=== PATIENT | female | born 1950 | race Caucasian/White ===

== ENCOUNTER 2018-01-11 10:19 | Emergency (ER) | payer MEDICARE, OTHER, SELFPAY ==
[2018-01-11 10:20] VITALS: BP 190/90; PULSE 67; RESP 18; TEMP 36.5; O2SAT 100
--- NOTE | 2018-01-11 10:32 | ED_ITS ---
HPI - Extremity Injury (Upper) General Chief Complaint: Extremity Injury, Upper Stated Complaint: FELL OFF PORCH AND POSSIBLY BROKE ELBOW Time Seen by Provider: 01/11/18 10:30 Source: patient Mode of arrival: ambulatory Limitations: no limitations History of Present Illness HPI narrative: Patient is a 67-year-old female who presents with left elbow pain. She was pulled by the dog when she fell down. She has extreme all left elbow pain no shoulder pain no numbness or tingling. No other injuries no loss of consciousness. complaint: injury to: left and elbow Related Data Home Medications Medication Instructions Recorded Confirmed acyclovir 400 mg PO BID #0 06/30/17 cholecalciferol (vitamin D3) 2,000 unit PO QDAY #0 06/30/17 [Vitamin D3] citalopram [Celexa] 5 mg PO QDAY #0 06/30/17 omega 6-fuh-gro-fish oil [Fish Oil] 1,000 mg PO BID #0 06/30/17 simvastatin 20 mg PO HS #0 06/30/17 Previous Rx's Medication Instructions Recorded oxycodone-acetaminophen [Percocet] 1 tab PO Q4-6H PRN #14 tab 01/11/18 Allergies Allergy/AdvReac Type Severity Reaction Status Date / Time No Known Allergies Allergy Verified 01/11/18 10:38 Review of Systems Review of Systems All systems reviewed & are unremarkable except as noted in HPI and below Constitutional Denies chills, Denies fever(s), Denies lethargy and Denies weakness Cardiovascular Denies chest pain, Denies irregular heart rhythm, Denies lightheadedness, Denies palpitations, Denies dyspnea, Denies dyspnea on exertion and Denies orthopnea Respiratory Denies cough, Denies dyspnea, Denies dyspnea on exertion and Denies wheezing Musculoskeletal Reports system reviewed and no additional complaints, except as docu Integumentary/Breasts Denies pruritus, Denies erythema, Denies rash and Denies wounds Neurologic Denies weakness Endocrine Denies palpitations Allergic/Immunologic Denies wheezing [facility] Medical History Hyperlipidemia (Acute) Exam Initial Vital Signs Initial Vital Signs: Vital Signs Temperature 97.7 F 01/11/18 10:20 Pulse Rate 67 01/11/18 10:20 Respiratory Rate 18 01/11/18 10:20 Blood Pressure 190/90 H 01/11/18 10:20 Pulse Oximetry 100 08/27/18 10:20 GENERAL: Well-appearing, well-nourished and in no acute distress. CARDIOVASCULAR: peripheral pulses in tact, cap refill <2 sec RESPIRATORY: No respiratory distress, speaks in full sentences without difficulty EXTREMITIES: Normal range of motion, no clubbing or edema. Neurovascularly intact. Wrist shoulder and clavicle all within normal limits -LEFT ELBOW: Swelling of noted, no gross bony deformity, neurovascularly intact. NEUROLOGICAL: Cranial nerves II through XII grossly intact. Normal gait and speech. SKIN: Warm, dry, no petechiae, no rashes or lesions. Procedures Orthopedic Splinting/Casting Injury #1: Side: left Upper Extremity Injury Location: elbow Upper Extremity Immobilizer: posterior splint Additional Comments: Splint applied by me, with assistance of nurse, neurovascular be intact post splint Course Orders Ordered: Discontinued Medications Hydromorphone HCl (Dilaudid) 0.5 mg IV NOW ONE Stop: 01/11/18 11:44 Last Admin: 01/11/18 11:45 Dose: 0.5 mg Lorazepam (Ativan) 0.5 mg IV NOW ONE Stop: 01/11/18 11:07 Last Admin: 01/11/18 11:24 Dose: 0.5 mg Morphine Sulfate (Morphine) 2 mg IV NOW ONE Stop: 01/11/18 10:36 Last Admin: 01/11/18 10:42 Dose: 2 mg Reevaluation(s) Reevaluation #1: Patient developed some numbness and tingling of her left pinky. She said it lasted for about 10 min while she was in the emergency department and has since resolved since she has been splinted. Dr. Giles is also aware of the Vital Signs - 8 hr 01/11/18 10:20 01/11/18 10:46 01/11/18 11:28 Temperature 97.7 F Pulse Rate 67 80 70 Pulse Rate [Left Radial] 74 Respiratory Rate 18 23 18 Blood Pressure 190/90 H Blood Pressure [Right Arm] 184/101 H 201/91 H Pulse Oximetry 100 100 100 01/11/18 12:21 01/11/18 12:50 01/11/18 13:34 Temperature 98.4 F Pulse Rate 70 75 60 Pulse Rate [Left Radial] Respiratory Rate 18 18 18 Blood Pressure Blood Pressure [Right Arm] 177/93 H 168/86 H 166/92 H Pulse Oximetry 94 97 98 MDM - Extremity Injury (Upper) Imaging Data XR Left Elbow: Radiologist's impression: PROCEDURE: XR ELBOW LT MIN 3V INDICATIONS: left elbow pain, fall, deformity TECHNIQUE: 3 views of the elbow were acquired. COMPARISON: None. FINDINGS: Bones: Poorly visualized fracture of the distal left humerus noted possibly involving the capitellum. Fracture fragment is displaced anteriorly and proximally. Soft tissues: No suspicious soft tissue calcifications. IMPRESSION: Poorly visualized and characterized distal left humerus fracture. Dictated by: Jennifer Mendenhall MD, PhD on 01/11/2018 at 11:13 CT LUE: Radiologist's impression: [address] [address] [address] Scan Report Signed Patient: Jerrica Robles I MR#: [id number] : 1950 Acct:[id number] Age/Sex: 67 / F Date of Service: 01/11/18 Loc: ED Accession Number: [id number] Procedure: CT UE LT wo con Ordering Provider: Ayse Butterfield D.O. PROCEDURE: CT UE LT WO CON INDICATIONS: humerus fracture TECHNIQUE: Noncontrast 1-1.5 mm axial sections were acquired through the elbow joint, with coronal and sagittal reformats. COMPARISON: [facility], CR, XR ELBOW LT MIN 3V, 01/11/2018, 10:53. FINDINGS: Image quality: Excellent. Bones: The humeral diaphysis visualized appears normal. At the elbow joint there is a lateral humeral epicondyles intra-articular fracture malalignment with comminution, displacing portions of the articular surface laterally to a mild degree. There also is a fracture dislocation involving the medial humeral condyle displaced cephalad to the coronoid process of the olecranon. There is impingement by the radial head against the fracture plane along its cephalad border, maintaining malalignment. Soft tissues: No hematoma found. IMPRESSION: Distal humeral comminuted intra-articular fractures involving the medial and lateral condyles, with condylar dislocation from anatomic alignment cephalad and also laterally to a mild degree. No humeral diaphyseal fracture found. A definite radial head fracture is not seen. Dictated by: Luiz Scott M.D. on 01/11/2018 at 13:10 [facility] Narrative Medical decision making narrative: I have spoken with Dr. Giles, on-call orthopedics. She recommended CT of the upper arm. She has reviewed the CT herself. She will see patient in clinic and likely go to the OR later this week. Discharge Plan Departure Patient Disposition: Home Clinical Impression: Fracture of distal end of humerus Discharge Date/Time: 01/11/18 14:16 Interventions: ED Discharge Assessment Last Done: 01/11/18 14:14 Instructions: DI for Elbow Fracture Activity Restrictions/Additional Instructions: *You have been diagnosed with distal humerus fracture *What to do: Keep splint on at all times, will get surgery on Thursday please call Orthopedics office to discuss specific *Continue to take medications as directed -Percocet 1 tablet every 4 hr or 2 tablets every 6 hr *Follow up with your primary care provider in 2-3 days *Return to ER if you should have numbness, tingling, increased pain or any new, worsening or concerning symptoms Prescriptions: New oxycodone-acetaminophen [Percocet] 5-325 mg tablet 1 tab PO Q4-6H PRN (Reason: pain) Qty: 14 RF: 0 No Action citalopram [Celexa] 10 MG tablet 5 mg PO QDAY Qty: 0 RF: 0 acyclovir 400 MG tablet 400 mg PO BID Qty: 0 RF: 0 simvastatin 20 MG tablet 20 mg PO HS Qty: 0 RF: 0 cholecalciferol (vitamin D3) [Vitamin D3] 2,000 UNIT capsule 2,000 unit PO QDAY Qty: 0 RF: 0 omega 8-imc-zzs-fish oil [Fish Oil] 1,000 MG capsule 1,000 mg PO BID Qty: 0 RF: 0 Referrals: Maurice Reyes MD [Primary Care Provider] - Mireya Giles MD [Physician] -
[2018-01-11] MEDS: MORPHINE 2 MG/ML INJ IV (10:42)
[2018-01-11 10:46] VITALS: BP 184/101; PULSE 74; PULSE 80; RESP 23; O2SAT 100
[2018-01-11] MEDS: LORazepam 2 MG/ML SYRINGE 0.5 MG IV (11:24)
[2018-01-11 11:28] VITALS: BP 201/91; PULSE 70; RESP 18; O2SAT 100
[2018-01-11] MEDS: HYDROMORPHONE 1 MG INJ 0.5 MG IV (11:45)
--- NOTE | 2018-01-11 11:55 | PC.NURSE ---
Assisted Dr. Butterfield with application of splint to left arm. CMS intact. Pt tolerated procedure well. States pain is at level 3/10
[2018-01-11 12:21] VITALS: BP 177/93; PULSE 70; RESP 18; O2SAT 94
--- NOTE | 2018-01-11 12:33 | DI.CT.S_ITS ---
PROCEDURE: CT UE LT WO CON INDICATIONS: humerus fracture TECHNIQUE: Noncontrast 1-1.5 mm axial sections were acquired through the elbow joint, with coronal and sagittal reformats. COMPARISON: [facility], CR, XR ELBOW LT MIN 3V, 01/11/2018, 10:53. FINDINGS: Image quality: Excellent. Bones: The humeral diaphysis visualized appears normal. At the elbow joint there is a lateral humeral epicondyles intra-articular fracture malalignment with comminution, displacing portions of the articular surface laterally to a mild degree. There also is a fracture dislocation involving the medial humeral condyle displaced cephalad to the coronoid process of the olecranon. There is impingement by the radial head against the fracture plane along its cephalad border, maintaining malalignment. Soft tissues: No hematoma found. IMPRESSION: Distal humeral comminuted intra-articular fractures involving the medial and lateral condyles, with condylar dislocation from anatomic alignment cephalad and also laterally to a mild degree. No humeral diaphyseal fracture found. A definite radial head fracture is not seen. Dictated by: Luiz Scott M.D. on 01/11/2018 at 13:10 Approved by: Luiz Scott M.D. on 01/11/2018 at 13:14
[2018-01-11 12:50] VITALS: BP 168/86; PULSE 75; RESP 18; TEMP 36.9; O2SAT 97
[2018-01-11 13:34] VITALS: BP 166/92; PULSE 60; RESP 18; O2SAT 98
== END 2018-01-11 14:16 | disposition home or self-care (01) ==
PROVIDERS: Emergency Provider Emergency Medicine; PCP Family Medicine
DX: S42.402A Unspecified fracture of lower end of left humerus, initial encounter for closed fracture (principal); W18.30XA Fall on same level, unspecified, initial encounter; Y93.K1 Activity, walking an animal
CPT/HCPCS: 29125; 36591; 73080; 73200; 96374; 96375; 99283; 99284; J1170; J2060; J2270

== ENCOUNTER → 2018-04-23 14:15 | Outpatient (CLI) | payer MEDICARE, OTHER, SELFPAY ==
--- NOTE | 2018-04-23 | DI.RAD.S_ITS ---
PROCEDURE: XR SHOULDER LT MIN 2V INDICATIONS: LEFT SHOULDER PAIN TECHNIQUE: 3 views of the shoulder were acquired. COMPARISON: None. FINDINGS: Bones: No fractures or dislocations. No suspicious bony lesions. Visualized ribs appear intact. Soft tissues: No suspicious soft tissue calcifications. IMPRESSION: No acute radiographic findings. If there is continued pain, followup exam or additional imaging such as MRI or CT could be performed for further assessment. Dictated by: Shama Solis M.D. on 04/23/2018 at 14:32 Approved by: Shama Solis M.D. on 04/23/2018 at 14:33
== END ==
PROVIDERS: PCP Family Medicine; Visit Provider Family Medicine
DX: M25.512 Pain in left shoulder (principal)
CPT/HCPCS: 73030

== ENCOUNTER → 2018-09-15 15:18 | Outpatient (CLI) | payer MEDICARE, OTHER, SELFPAY ==
--- NOTE | 2018-09-15 | DI.MG.S_ITS ---
BILATERAL DIGITAL SCREENING MAMMOGRAM 3D/2D WITH CAD: 09/15/2018 CLINICAL: Routine screening. Comparison is made to exams dated: 08/07/2016 mammogram, 10/26/2014 mammogram, and 02/27/2010 mammogram - [facility]. The tissue of both breasts is extremely dense, which lowers the sensitivity of mammography. Current study was also evaluated with a Computer Aided Detection (CAD) system. No significant masses, calcifications, or other findings are seen in either breast. There has been no significant interval change. IMPRESSION: NEGATIVE There is no mammographic evidence of malignancy. A 1 year screening mammogram is recommended. This exam was interpreted at Station ID: [id number]. NOTE: For mammograms, a report in lay terms will be sent to the patient. Approximately 15% of breast malignancies will not be visualized mammographically. In the management of a palpable breast mass, a negative mammogram must not discourage biopsy of a clinically suspicious lesion. Electronically Signed By: Marizol newsome/jame:09/15/2018 21:08:42 letter sent: Normal Exam ACR BI-RADS Category 1: Negative [id number]
[2018-09-15 15:48] LABS: Bacteria Urine None Seen; RBC Urine None Seen (0-5/HPF); WBC Urine None Seen (0-5/HPF)
[2018-09-15 16:08] LABS: Appearance Urine UA SL CLOUDY; Bilirubin Urine UA NEGATIVE (NEGATIVE); Color Urine UA YELLOW; Glucose Urine UA NEGATIVE (Negative); Ketones Urine UA NEGATIVE (NEGATIVE); Leukocyte Esterase Urine UA NEGATIVE (NEGATIVE); Nitrite Urine UA NEGATIVE (Negative); Occult Blood Urine UA NEGATIVE (Negative); Protein Urine UA NEGATIVE (Negative); Urobilinogen Urine UA 0.2 E.U./dL (0.2); pH Urine UA 7.5 (4.5-8.0)
[2018-09-15 16:11] LABS: Add Manual Diff / Slide Review NO; Basophils Absolute Auto 0 /uL (0-100); Basophils Percent Auto 0.7 % (0-2); Eosinophils Absolute Auto 100 /uL (0-450); Eosinophils Percent Auto 2.6 % (2-4); Hematocrit 45.7 % (36-46); Hemoglobin 15.1 g/dL (12.0-16.0); Lymphocytes Absolute Auto 2000 /uL (1100-4500); Lymphocytes Percent Auto 35.5 % (25-40); Mean Corpuscular HGB Conc 33.1 % (30-36); Mean Corpuscular Hemoglobin 31.4 PG (26-34); Mean Corpuscular Volume 94.7 fL (80-100); Monocytes Absolute Auto 400 /uL (0-900); Monocytes Percent Auto 6.4 % (3-14); Neutrophils Absolute Auto 3100 /uL (1500-7000); Neutrophils Percent Auto 54.8 % (50-75); Platelet Count 288 X10^3/uL (150-400); Red Blood Cell Count 4.83 X10^6/uL (4.0-5.2); Red Cell Distribution Width 12.8 % (11.6-14.8); White Blood Cell Count 5.7 X10^3/uL (4.5-11.0)
[2018-09-15 16:22] LABS: Amorphous Sediment Urine 2+; Culture Indicated Urine Cult Not Indicated; Squamous Epithelial Cell Urine 0-1 /HPF (0-5/HPF)
[2018-09-15 16:27] LABS: Hemoglobin A1C% w Est Avg Glu 5.1 % (4.0-6.0)
[2018-09-15 18:19] LABS: BUN Creatinine Ratio 25.6 (6-22); Blood Urea Nitrogen 23 mg/dL (7-17); Calcium 10.9 mg/dL (8.4-10.2); Carbon Dioxide 28 mmol/L (22-32); Chloride 101 mmol/L (98-107); Estimated Glomerular Filt Rate > 60.0 mL/min (>60); Glucose 92 mg/dL (80-110); HEMOLYSIS < 15 (0-50); Potassium 4.5 mmol/L (3.4-5.1); Sodium 139 mmol/L (137-145)
== END ==
PROVIDERS: Family Provider Orthopaedic Surgery; PCP Family Medicine; Visit Provider Family Medicine
DX: Z01.818 Encounter for other preprocedural examination (principal); Z01.812 Encounter for preprocedural laboratory examination; Z12.31 Encounter for screening mammogram for malignant neoplasm of breast; N39.9 Disorder of urinary system, unspecified; Z13.1 Encounter for screening for diabetes mellitus; R73.9 Hyperglycemia, unspecified
CPT/HCPCS: 36415; 77063; 77067; 80048; 81001; 83036; 85025; 93005

== ENCOUNTER 2018-11-11 05:57 | Inpatient (IN) | payer MEDICARE, OTHER, SELFPAY ==
[2018-11-02 09:37] VITALS: BMI 24.8
[2018-11-11] VITALS (14 sets, daily range): BP systolic 104–156; BP diastolic 49–90; PULSE 56–96; RESP 9–99; TEMP 36–36.5; O2SAT 9–100; BMI 24.5
--- NOTE | 2018-11-11 | DI.RAD.S_ITS ---
PROCEDURE: XR HIP W PEL IF DONE RT 4V INDICATIONS: INNER OP ANTERIOR RT HIP TECHNIQUE: AP pelvis and lateral view of the right hip acquired. COMPARISON: None. FINDINGS: Bones: Patient is status post right hip arthroplasty, with hardware components in expected positions. The hip joint appears congruent. The visualized bony structures appear intact. Soft tissues: Overlying postoperative changes are noted. No suspicious soft tissue densities. IMPRESSION: Right hip prosthesis in anatomic alignment. Dictated by: Margie Meyer M.D. on 11/11/2018 at 12:19 Approved by: Margie Meyer M.D. on 11/11/2018 at 12:19
--- NOTE | 2018-11-11 06:00 | DI.RAD.S_ITS ---
PROCEDURE: XR HIP W PEL IF DONE RT 2V INDICATIONS: right IVANA, anterior TECHNIQUE: AP pelvis and lateral view of the right hip acquired. COMPARISON: [facility], CR, XR PELVIS WITH LATERAL HIP RIGHT, 02/24/2018, 13:44. [facility] [place], CR, XR PELVIS WITH LATERAL HIP RIGHT, 09/10/2018, 11:49. FINDINGS: Bones: Patient is status post right hip arthroplasty, with hardware components in expected positions. The hip joint appears congruent. The visualized bony structures appear intact. Soft tissues: Overlying postoperative changes are noted. No suspicious soft tissue densities. IMPRESSION: Right hip arthroplasty with prosthesis in anatomic alignment. Dictated by: Margie Meyer M.D. on 11/11/2018 at 16:08 Approved by: Margie Meyer M.D. on 11/11/2018 at 16:09
[2018-11-11] MEDS: VANCOMYCIN 1,000 MG/200 ML PIGGYBACK 200 MG IV (07:03)
[2018-11-11] MEDS: ACETAMINOPHEN 325 MG TABLET 975 MG PO ×3 (07:03→20:38)
[2018-11-11] MEDS: PREGABALIN 75 MG CAPSULE PO (07:04)
[2018-11-11] MEDS: LACTATED RINGERS 1,000 ML 42 ML IV ×2 (07:05→09:33)
[2018-11-11] MEDS: MELOXICAM 7.5 MG TABLET 15 MG PO (07:39)
--- NOTE | 2018-11-11 07:39 | PM.PREOP ---
Pre-operative Note Interval Note History & Physical reviewed/Exam performed by Physician: Yes Changes to H&P: No
--- NOTE | 2018-11-11 07:39 | PM.OP.1 ---
Operative Date/Time/Diagnoses Date of procedure: 11/11/18 Time of procedure: 07:57 Pre-op diagnosis: Right hip osteoarthritis Post-op diagnosis: same Procedure & Clinicians Procedure: Right total hip arthroplasty Same procedure as scheduled: Yes Indications: The patient has had progressively worsening right hip pain with radiographic changes consistent with arthritis. Non-operative management has failed and the patient has requested total hip replacement. The risks, benefits and alternatives to surgery were discussed with the patient prior to proceeding. Risks discussed included, but were not limited to, failure to relieve pain, leg length discrepancy, dislocation, stiffness, infection, nerve damage, deep venous thrombosis, pulmonary embolism, stroke, coma, heart attack, permanent paralysis and , as well as the potential need for eventual revision of the prosthetic. Surgeon: Mireya Giles Registered Medical Transcriptionist: Svetlana Bates Anesthesia Type: General and Spinal Operative Notes Findings: Severe right hip osteoarthritis, adequate stability, soft bone Closure Type: primary Specimen(s): none sent Prosthetic devices, grafts, tissues, transplants, or devices: [employer] anthology size 6 standard, +0 oxinium, R3 52 cup, 20mm screw, 36 by 52 Estimated Blood Loss (mL): 250 Blood products transfused: none Procedure in detail: The patient was brought to the operating room. Patient was carefully positioned in the supine position. Time-out was performed and antibiotics were given. Anesthesia was induced. She was positioned in the on the table in order to allow hyperextension of the hip. The right lower extremities was prepped and draped in a standard sterile fashion. An anterior right hip incision was made 1 fingerbreadth lateral to the anterior superior iliac spine and extended distally towards the greater trochanter. Dissection was carried out through skin and subcutaneous tissues. The skin and subcutaneous tissues were carefully injected with bupivacaine with epi. Superficial hemostasis was achieved. The fascia over the tensor fascia rajni was defined and incised with a knife. Two Allis clamps were used to grasp the fascia. Tensor fascia rajni was retracted laterally. A gelpi retractor was placed. Dissection was carried out down along the neck. The circumflex vessels were carefully identified and cauterized with the Aqua Mantis. There was good visualization of the femoral neck. A Cobra was placed superior to the neck and the gluteus fibers were carefully stripped from that superior aspect of the capsule. A 2nd retractor was placed along the inferior aspect of the neck. The rectus insertion along the capsule was partially released. A 3rd retractor that was then gently placed over the rim of the acetabulum under the rectus. Capsule was carefully incised and released from the intertrochanteric line circumferentially superior to the mid sagittal line and inferiorly to the mid sagittal line until the lesser trochanter was palpable. A tag stitch was placed both in the superior and inferior limb of the capsular insertion. Along the acetabulum capsule was also released up to the mid sagittal 12:00 position. A portion of the labrum was resected. A saw was used to perform an osteotomy at the level of the intertrochanteric line and the junction of the superior femoral neck leaving approximately 1 finger breath of residual inferior neck above the lesser trochanter. A 2nd cut was made along the femoral neck at the base of the head and a napkin ring of neck was removed. Corkscrew was placed in the femoral head and the head was removed without difficulty. Retractors were then repositioned around the acetabulum. Residual labrum was resected and additional osteophytes were removed. A reamer that was 4 mm below the templated size was placed by hand in the acetabulum and it was reamed to centralize the acetabulum. It was then reamed up to 2 under the templated size and fluoroscopy was brought in to confirm the position of the reaming and depth of reaming. I reamed 1 under the anticipated size and touched the rim with line to line reaming. A single screw was placed to improve cup fixation. A trial cup was placed and noted that it was appropriately sized and fluoroscopy confirmed position and depth. The component was open and inserted without difficulty fluoroscopic imaging was used to confirm that the cup had been adequately seated and was well positioned. Neutral poly trial liner was placed. The cup was tested and noted to be stable. Attention was then directed to the femur. The femur was gently hyperextended additional capsular release was performed as needed in order to allow adequate visualization of the proximal femur with elevation of the femur. Patient was placed in a hyperextended slightly adducted position with maximum external rotation. Box osteotome was used to check for any residual neck as well as sclerotic bone along the trochanter. Waddell pepper was placed in the femur. Additional broaching was performed. Canal finder was used to determine the alignment of the canal and position. Size 1 broach was placed. The canal was then appropriately broached up to the templated size as long as there was adequate stability of the broach and serial advancement of the broach without excessive impingement. Specific attention was directed at avoiding varus attempting to direct the distal aspect of the broach more anteriorly and avoiding excessive anteversion. Trial reduction showed acceptable range of motion, good stability, no posterior impingement, oriental orthodox of leg length and appropriate lateral shuck. I also hyperflexed the hip and checked that there was no impingement anteriorly and there was good stability with flexion, abduction and internal rotation. Final neutral poly was placed without difficulty. Marcaine and Exparel were injected. The stem was placed without difficulty. Repeat trial reduction and x-ray showed acceptable overall position, length, and no evidence of the femoral fracture. Final head was placed. Wound was meticulously irrigated with normal saline. The hip was reduced and additional Exparel and Marcaine were injected. The capsule was closed with interrupted nonabsorbable sutures. The fascia of the tensor was closed with interrupted and running Vicryl. No drain was placed. Any tensor fascia rajni muscle that appeared to be contused or injured which was a minimal amount was carefully resected. Capsule around the tensor was injected with Exparel and Marcaine. The skin was closed with barbed stitches for the subcutaneous tissue and skin. We also used surgical glue. The wound was dressed sterilely. Brief Betadine soak was also used and was meticulously irrigated with normal saline. Patient was transferred to recovery room in satisfactory condition. Complications: none Condition: stable Disposition: Acute Care Plan for aftercare: The patient will be maintained on a standard total hip replacement protocol with weight bearing as tolerated and anterior hip precautions. The patient will receive Aspirin and sequential compression devices for DVT prophylaxis. The patient will be discharged home when safe for the home environment.
[2018-11-11] MEDS: CEFAZOLIN 2 GM/100 ML FROZ.PIGGY IV ×2 (08:04→15:51)
[2018-11-11] MEDS: TRANEXAMIC ACID 1,000 MG VIAL 2000 MG INJ ×2 (08:40→11:26)
--- NOTE | 2018-11-11 08:54 | SUR.OPER ---
Head on pillow. Supine on hana table with bilateral legs secured in padded hana table boot positioners, legs straddling padded center post . O. arms padded and secured on padded armboards at less than 90 degrees
[2018-11-11] MEDS: BUPIVACAINE LIPOSOME 266 MG/20 ML VIAL INJ (09:01)
[2018-11-11] MEDS: BUPIVACAINE 0.25% W/ EPI 30 ML VIAL 60 ML INJ (09:01)
[2018-11-11] MEDS: POVIDONE-IODINE 15 ML, SODIUM CHLORIDE 0.9% 250 ML TOP (09:04)
[2018-11-11] MEDS: hydrOXYzine 50 MG/ML INJ 25 MG IM (12:14)
[2018-11-11] MEDS: HYDROMORPHONE 2 MG INJ 0.5 MG IV ×2 (12:15→12:27)
[2018-11-11] MEDS: fentaNYL 100 MCG/2 ML INJ 50 MCG IV (12:39)
--- NOTE | 2018-11-11 13:57 | PC.NURSE ---
AM NOTE - 1315 arrived from pacu, pt is drowsy, does awaken to stimulus, states r hip discomfort 4 on scale 0/10, improved after medications in pacu, able wiggle toes, scds on, anterior aquacell cdi, 02 sat 94% when awake, drifts to 83-84% when asleep, enc db, does have is at bedside to use later when more awake, placed 1l nc 96%, some mild itching nose.
[2018-11-11] MEDS: LACTATED RINGERS 1,000 ML 125 ML IV ×2 (14:04→20:44)
--- NOTE | 2018-11-11 15:12 | CM.DANOTE ---
DCP: Case received, EMR reviewed and met with patient and , Sedrick. Introduced self and role. Information regarding health history obtained by . DCP template assessment completed with information currently available. Patient is a 68 year old female who admitted early this morning to the care of the orthopedic team. PCP: Dr. Reyes. Payer: confirmed: Medicare/[facility]. Patient came to hospital for surgical procedure. She had R. total hip arthroplasty. Patient has had history of osteoarthritis. She had tried cortisone injections before, with limited amount of relief. Met in patient's room. Was semi-awake, but , Sedrick, at bedside. Confirmed with that patient has a FWW. He stated that she had not been using a walker before. They both reside in [place]. stated that they have two steps in their house. He stated that she already has outpatient physical therapy set up. Patient has not yet worked with physical therapy. P: DCP to continue to follow closely. Collaborate with P.T. team to ensure that patient will be able to go home. Majo Hamilton RN/Inventory And Pricing Associate
--- NOTE | 2018-11-11 16:38 | PT.IIE ---
Current Diagnoses Unilateral primary osteoarthritis, right hip (11/11/18) Surgery Performed Operation Date: 11/11/18 07:45 Actual Procedures p Total Hip Arthroplasty/Anterior Approach(Right) - Mireya Giles MD Surgical History (Last Updated 11/02/18 @ 10:19 by Arely Moreno, RN) History of colonoscopy (Acute) Hx of elbow surgery (Acute 01/11/18) Hx of lumbar discectomy (Acute ~2006) Hx of tonsillectomy (Acute) Medical History (Last Updated 11/02/18 @ 10:19 by Arely Moreno RN) Back pain (Acute) Cataracts, bilateral (Acute) Deaf (Acute) Depression (Acute) HTN (hypertension) (Acute) Osteoarthritis (Acute) Pneumonia (Acute) Seasonal allergies (Acute) Skin cancer of chest, excluding breast (Acute) Hyperlipidemia (Acute) Physical Therapy Inpatient Evaluation/Re-Eval M1 PT/OT-IP Prior Functional Status Start: 11/11/18 17:46 Freq: NEEDED Status: Active Protocol: Document 11/11/18 16:38 AB (Rec: 11/11/18 17:57 AB [id number]) Medical Review Prior Functional Status Medical History Reviewed Yes Diet/Fluid Consistency Regular Communication able to make needs known Mobility and Gait pt stated that she is independent with all mobilities and ambulation without AD Social History Household Members spouse Living Arrangements Mobile home Number of Floors (Floors) One Floor Number of Stairs To Enter/Railing? 1 platform step to enter Home Environment High Toilet Home Equipment Four Wheel Walker Hand Held Shower Grab Bars Near Toilet Grab Bars In Shower Additional Social History Comment Pt has a walk in tub shower M2 PT-IP Current Condition Start: 11/11/18 17:46 Freq: NEEDED Status: Active Protocol: Document 11/11/18 16:38 AB (Rec: 11/11/18 17:57 AB [id number]) Physical Therapy Current Condition Current Condition Evaluation Date 11/11/18 Treatment Diagnosis s/p R IVANA anterior approach; difficulty in walking Onset Date 11/11/18 Precautions Anterior Hip Precautions No Hip Extension No Hip External Rotation Weight Bearing Status Weight Bearing Status Weight Bear as Tolerated M3 PT-IP Subjective Start: 11/11/18 17:46 Freq: NEEDED Status: Active Protocol: Document 11/11/18 16:38 AB (Rec: 11/11/18 17:57 AB [id number]) Subjective Physical Therapy Visit Type Type Initial Evaluation Visit Start Time 16:38 Visit Stop Time 17:30 Total Visit Minutes 52 Number of SUPERVISOR RIDE ASSEMBLY Visits 0 Physical Therapy Visit Comments Patient Comments I am sleepy Therapy Pain Assessment Pain When Pain Assessed At Rest Pain Present Pain Present Pain Reported Location right hip Intensity 4 Scale Used with mobility: 6/10 Pain Management Techniques Apply Cold Re-positioning Timing of Activity with Medications M4 PT-IP Mobility and Gait Start: 11/11/18 17:46 Freq: NEEDED Status: Active Protocol: Document 11/11/18 16:38 AB (Rec: 11/11/18 17:57 AB [id number]) PT-Bed Mobility Assessment Supine to Sit Supine to Sit Standby Assistance Scooting Scooting to Edge of Bed Standby Assistance PT-Transfer Assessment Sit to and From Stand Sit to and from Stand Moderate Assistance 1 Person Assistance Use of Upper Extremities Equipment Transfer Assistive Device Gait Belt Front Wheeled Walker Orthotic/Prosthetic Devices or Brace: No Transfers Transfer Destination Chair Transfer Technique Stand Step Pivot Transfer Ability Level of Assist Minimal Assistance 1 Person Assistance Use of Upper Extremities Comments Mobility Comments pt can be impulsive. completed sit <>stand x 3 reps requiring mod A and cues for techniques. BP supine: 112/68 BP sittin/72 BP at end of tx session: 138/ 69 Gait Assessment Gait Gait Assistance Required: Minimum Assistance Distance (Feet) 8 Able to Maintain Weight Bearing Status Yes During Gait Assistive Devices Assistive Device Gait Belt Front Wheeled Walker Orthotic/Prosthetic Devices or Brace: No Gait Deviations General Gait Pattern Antalgic Decreased Stride Length Decreased Feet Clearance Factors Limiting Gait Function Factors Limiting Gait Function Decreased Activity Tolerance Decreased Strength Difficulty Following Directions Limited Range of Motion Pain Poor Balance Poor Safety Awareness Comments Gait Comments requires cues to maintain R hip anterior precautions PT-Balance Assessment Sitting Balance and Reactions Static Sitting Balance Ability Good Dynamic Sitting Balance Ability Good Standing Balance and Reactions Static Standing Balance Ability Fair Dynamic Standing Balance Ability Fair Device Used FWW M5 PT-IP Objective Assessments Start: 11/11/18 17:46 Freq: NEEDED Status: Active Protocol: Document 11/11/18 16:38 AB (Rec: 11/11/18 17:57 AB [id number]) Orientation Orientation/Cognition Level of Alertness Alert Orientation Name Age Place Situation Language Function Ability No Deficits Noted Hard of Hearing Safety Awareness Decreased Safety Awareness Memory Description Short Term Impaired Gross Range of Motion Lower Extremity ROM Assessment Within Functional Limits Strength Lower Extremity Strength Assessment Right Impaired Knee 3+/5 Sensation Assessment Sensation Gross Sensation WNL Muscle Tone Muscle Tone WNL Yes M6 PT-IP Treatment Start: 11/11/18 17:46 Freq: NEEDED Status: Active Protocol: Document 11/11/18 16:38 AB (Rec: 11/11/18 17:57 AB [id number]) Physical Therapy Treatment Exercises Exercises Quad Sets Heel Slides Education Education Provided Precautions Weight Bearing Status Post-Op Packet Safety Other Treatments Other Treatment Performed pt's spouse also educated on pt's R IVANA anterior precautions M7 PT-IP Assessment and Plan Start: 11/11/18 17:46 Freq: NEEDED Status: Active Protocol: Document 11/11/18 16:38 AB (Rec: 11/11/18 17:57 AB [id number]) PT Summary Assessment and Plan Potential Rehabilitation Potential Good Status of Condition at Evaluation Stable Summary Impairments Pain ROM Strength Balance Coordination Sensation Tone Cognition Bed Mobility Transfers Gait Activity Tolerance Assessment Summary pt requiring one person assist with mobility and can be impulsive affecting safety. pt requires cues to maintain hip precautions. Set up caregiver training tomorrow with spouse at ~ 10 am. d/c plan depending on caregiver training and stair training. will continue to assess. informed spouse that pt will needs a FWW and stated that he will borrow/ get one. Goals Bed Mobility Goal Independent Transfer Goal Independent Front Wheeled Walker Gait Goal Standby Assistance Front Wheel Walker Gait Distance 200 Days to Meet Goals 5 Frequency of Treatment Frequency Of Treatment Twice a Day Treatment Plan Physical Therapy Treatment Plan Bed Mobility Training Transfer Training Gait Training Therapeutic Exercise Balance Retraining Post Op Education Discharge Planning Hot or Cold Pack Neuromuscular Re-ed Coordination Retraining Manual Therapy Other Recommendations and Next Treatment ambulation, stair training, Focus caregiver training 11/02 10 am Recommendations To Nursing Amount of Assist Needed 1 Person Assist Discharge Recommendations PT Discharge Recommendations Home with Assistance Outpatient PT Equipment Needed for Home Before FWW: spouse will try to get Discharge one
[2018-11-11] MEDS: OXYCODONE IR 5 MG TABLET PO ×2 (17:14→20:37)
[2018-11-11] MEDS: ACYCLOVIR 400 MG TABLET PO (20:39)
[2018-11-11] MEDS: ASPIRIN EC 81 MG TABLET PO (20:39)
[2018-11-11] MEDS: FISH OIL 1,000 MG CAPSULE 1000 MG PO (20:40)
[2018-11-11] MEDS: DOCUSATE 100 MG CAPSULE PO (20:40)
[2018-11-11] MEDS: SIMVASTATIN 20 MG TABLET 40 MG PO (20:41)
[2018-11-12] VITALS: BP 134/72; PULSE 91; RESP 16; TEMP 36.6; O2SAT 97
[2018-11-12] MEDS: CEFAZOLIN 2 GM/100 ML FROZ.PIGGY IV (00:21)
[2018-11-12] MEDS: OXYCODONE IR 5 MG TABLET PO ×4 (00:21→12:38)
[2018-11-12 05:10] VITALS: BP 118/93; PULSE 89; RESP 16; TEMP 36.6; O2SAT 98
[2018-11-12] MEDS: LACTATED RINGERS 1,000 ML 125 ML IV (05:17)
[2018-11-12 06:05] LABS: Hematocrit 33.1 % (36-46); Hemoglobin 11.2 g/dL (12.0-16.0)
--- NOTE | 2018-11-12 07:42 | PM.DS.1 ---
History of Present Illness Date Patient Seen: 11/12/18 Time Patient Seen: 07:42 Chief complaint: [id number] Right Total Hip Arthroplasty/Anterior Narrative: The patient has had progressively worsening right hip pain with radiographic changes consistent with arthritis. Non-operative management has failed and the patient has requested total hip replacement. The risks, benefits and alternatives to surgery were discussed with the patient prior to proceeding. Risks discussed included, but were not limited to, failure to relieve pain, leg length discrepancy, dislocation, stiffness, infection, nerve damage, deep venous thrombosis, pulmonary embolism, stroke, coma, heart attack, permanent paralysis and , as well as the potential need for eventual revision of the prosthetic. Discharge Providers Date of admission: 11/11/18 05:57 Discharge Date: 11/12/18 Primary care physician: Maurice Reyes MD Consults: 11/11/18 06:00 Consult to Anesthesiology Routine Comment: Consulting Provider: Anesthesiologist Reason for consultation: Regional block for post operative pain control 11/11/18 13:21 Consult to Discharge Planning Routine Comment: Consult to Physical Therapy Evaluate & Treat Comment: Physician Instructions: postop TKA protocol Consult to Respiratory Therapy Evaluate & Treat Comment: Physician Instructions: Evaluate and treat Discharge provider: Aleta Chris PA-C Summary Discharge Diagnosis: s/p right TKA Hospital Course: Jerrica was admitted for right total hip arthroplasty with Dr. Giles. Hospital course was unremarkable. On postop day 1 she was ready for discharge home. She was eating and voiding without difficulty or assistance. Pain was adequately controlled. She has worked with physical therapy throughout her stay. Exam Vital Signs (past 8 hours): - 11/12/18 00:00 11/12/18 05:10 Temperature 97.9 F 97.9 F Pulse Rate 91 H 89 Respiratory Rate 16 16 Blood Pressure 134/72 118/93 H Pulse Oximetry 97 98 Oxygen Delivery Method Room Air Oxygen Flow Rate 0 Objective Labs Result Diagrams: 11/12/18 05:45 Labs: Laboratory Results - last 24 hr 11/12/18 05:45 Hgb 11.2 L Hct 33.1 L Discharge Plan Discharge Plan Patient Disposition: Home Discharge Med Rec/Prescriptions Prescriptions: New acetaminophen 325 mg Tablet 975 mg PO TID Qty: 60 RF: 0 aspirin 81 mg Tablet,Delayed Release (Dr/Ec) 81 mg PO BID Qty: 60 RF: 0 docusate sodium [DOK] 100 mg Capsule 100 mg PO BID Qty: 60 RF: 0 Continued acyclovir 400 MG tablet 400 mg PO BID Qty: 0 RF: 0 simvastatin 20 MG tablet 40 mg PO HS Qty: 0 RF: 0 cholecalciferol (vitamin D3) [Vitamin D3] 2,000 UNIT capsule 2,000 unit PO QDAY Qty: 0 RF: 0 omega 0-bdc-buk-fish oil [Fish Oil] 1,000 MG capsule 1,000 mg PO BID Qty: 0 RF: 0 meloxicam 15 mg Tablet 15 mg PO DAILY RF: 0 amlodipine 2.5 mg Tablet 2.5 mg PO DAILY RF: 0 Changed oxycodone 5 mg Capsule 1 - 2 tab PO Q4-6H PRN (Reason: Pain) Qty: 0 RF: 0 Follow up/Referrals: Mireya Giles MD [Family Provider] - Skin/Wound/Dressing Care Report to your healthcare provider any signs of infection, such as:: chills, fever and increased pain Dressing: leave in place Visit Report/Discharge Packet Instructions: DI for Hip Replacement Discharge Data Primary Care Provider: Maurice Reyes Attending Provider: Mireya Giles Admit Date/Time: 11/11/18 05:57 Quality VTE Deep Vein Thrombosis/Pulmonary Embolism Present on Admission: No
[2018-11-12 08:00] VITALS: BP 148/91; PULSE 75; RESP 16; TEMP 36.6; O2SAT 98
[2018-11-12] MEDS: MELOXICAM 7.5 MG TABLET 15 MG PO (08:20)
[2018-11-12] MEDS: FISH OIL 1,000 MG CAPSULE 1000 MG PO (08:21)
[2018-11-12] MEDS: ASPIRIN EC 81 MG TABLET PO (08:21)
[2018-11-12] MEDS: ACETAMINOPHEN 325 MG TABLET 975 MG PO (08:21)
[2018-11-12] MEDS: DOCUSATE 100 MG CAPSULE PO (08:22)
[2018-11-12] MEDS: ACYCLOVIR 400 MG TABLET PO (08:25)
[2018-11-12] MEDS: AMLODIPINE 2.5 MG TABLET PO (08:38)
[2018-11-12 08:39] VITALS: PULSE 101; O2SAT 98
--- NOTE | 2018-11-12 10:07 | CM.DPC ---
Addendum entered by Chelo Rich LPN 11/12/18 12:11: Checked in on pt. She is eating lunch, napping on window bed/seat. JR Ho reports all went well with the caregiver training. Pt going home as planned once she has finished lunch. Original Note: DCP: continued: Case received and discussed in Team Rounds. DC to home order by ortho KAM Quinteros is noted. JR Ho reports that pt is doing well. She will be doing caregiver training today at 1000 and expectation is that pt will be going home after this. Will follow prn until pt and her spouse Sedrick d/c. She will follow up with the orthopedic clinic as per their planned IVANA protocol.
--- NOTE | 2018-11-12 11:00 | PT.IPTN ---
Current Diagnoses Unilateral primary osteoarthritis, right hip (11/11/18) Surgery Performed Operation Date: 11/11/18 07:45 Actual Procedures p Total Hip Arthroplasty/Anterior Approach(Right) - Mireya Giles MD Physical Therapy Treatment Note M2 PT-IP Current Condition Start: 11/11/18 17:46 Freq: NEEDED Status: Active Protocol: Document 11/11/18 16:38 AB (Rec: 11/11/18 17:57 AB [id number]) Physical Therapy Current Condition Current Condition Evaluation Date 11/11/18 Treatment Diagnosis s/p R IVANA anterior approach; difficulty in walking Onset Date 11/11/18 Precautions Anterior Hip Precautions No Hip Extension No Hip External Rotation Weight Bearing Status Weight Bearing Status Weight Bear as Tolerated M3 PT-IP Subjective Start: 11/11/18 17:46 Freq: NEEDED Status: Active Protocol: Document 11/12/18 11:00 GGD (Rec: 11/12/18 11:21 GGD [id number]) Subjective Physical Therapy Visit Type Type Treatment Note Visit Start Time 10:30 Visit Stop Time 11:00 Total Visit Minutes 30 Number of MEASUREMENT ADVISOR Visits 1 Physical Therapy Visit Comments Patient Comments Pt states she hopes to D/C today. Therapy Pain Assessment Pain When Pain Assessed At Rest Pain Present Pain Present Pain Reported Location right hip Intensity 3 Scale Used Numeric (1 - 10) M4 PT-IP Mobility and Gait Start: 11/11/18 17:46 Freq: NEEDED Status: Active Protocol: Document 11/12/18 11:00 GGD (Rec: 11/12/18 11:21 GGD [id number]) PT-Bed Mobility Assessment Supine to Sit Supine to Sit Standby Assistance Scooting Scooting to Edge of Bed Standby Assistance PT-Transfer Assessment Sit to and From Stand Sit to and from Stand Standby Assistance 1 Person Assistance Use of Upper Extremities Equipment Transfer Assistive Device Gait Belt Front Wheeled Walker Orthotic/Prosthetic Devices or Brace: No Transfers Transfer Destination Chair Transfer Ability Level of Assist Contact Guard Assistance 1 Person Assistance Use of Upper Extremities Gait Assessment Gait Gait Assistance Required: Contact Guard Assist Distance (Feet) 150 Able to Maintain Weight Bearing Status Yes During Gait Assistive Devices Assistive Device Gait Belt Front Wheeled Walker Orthotic/Prosthetic Devices or Brace: No Gait Deviations General Gait Pattern Antalgic Decreased Stride Length Decreased Feet Clearance Factors Limiting Gait Function Factors Limiting Gait Function Decreased Activity Tolerance Decreased Strength Difficulty Following Directions Limited Range of Motion Pain Poor Balance Poor Safety Awareness Stair Climbing Assessment Evaluation Level of Assist On Stairs Standby Assistance Contact Guard Assistance Devices Stair Climbing Assistive Devices Front Wheel Walker Technique/Endurance Stair Climbing Direction Ascend and Descend Stair Climbing Technique Step to Step Number of Steps Climbed 1 Stair Climbing Set # Repetitions (reps) 2 M5 PT-IP Objective Assessments Start: 11/11/18 17:46 Freq: NEEDED Status: Active Protocol: Document 11/11/18 16:38 AB (Rec: 11/11/18 17:57 AB [id number]) Orientation Orientation/Cognition Level of Alertness Alert Orientation Name Age Place Situation Language Function Ability No Deficits Noted Hard of Hearing Safety Awareness Decreased Safety Awareness Memory Description Short Term Impaired Gross Range of Motion Lower Extremity ROM Assessment Within Functional Limits Strength Lower Extremity Strength Assessment Right Impaired Knee 3+/5 Sensation Assessment Sensation Gross Sensation WNL Muscle Tone Muscle Tone WNL Yes M6 PT-IP Treatment Start: 11/11/18 17:46 Freq: NEEDED Status: Active Protocol: Document 11/12/18 11:00 GGD (Rec: 11/12/18 11:21 GGD [id number]) Physical Therapy Treatment Exercises Exercises Ankle Pumps Gluteal Sets Quad Sets Heel Slides Education Education Provided Precautions M7 PT-IP Assessment and Plan Start: 11/11/18 17:46 Freq: NEEDED Status: Active Protocol: Document 11/12/18 11:00 GGD (Rec: 11/12/18 11:21 GGD [id number]) PT Summary Assessment and Plan Summary Assessment Summary Pt improving with mobility. She was safe and stable with gait and stair mobility. Pt safe for home D/C when medically stable. Frequency of Treatment Frequency Of Treatment Twice a Day Treatment Plan Physical Therapy Treatment Plan Bed Mobility Training Transfer Training Gait Training Therapeutic Exercise Balance Retraining Post Op Education Discharge Planning Hot or Cold Pack Neuromuscular Re-ed Coordination Retraining Manual Therapy Recommendations To Nursing Amount of Assist Needed 1 Person Assist Discharge Recommendations PT Discharge Recommendations Home with Assistance Outpatient PT
--- NOTE | 2018-11-12 13:09 | PC.NURSE ---
AM NOTE - pt is alert, talkative, pain 3 on scale 0/10, r ant aquacell cdi, +sensation, no numbness rle, foot, ra 98%, hr 95, james po, up x 1 person w/fww to chair in am for breakfast, given 5mg oxycodone with meal, no nausea, + bt and discussed constipation and narcotic use, no dizziness reported and as po/output adequate, ivf saline locked, later up with PT and cleared for dc home, after lunch when ready, given 5mg po oxycodone for transport home, saline lock dc'd, belongings gathered, including personal fww x2, bag, clothing, shoes, tablet, cell phone and systems architect, glasses, escorted via wc by video editor to spouse's car.
== END 2018-11-12 13:13 | disposition home or self-care (01) | DRG 470 ==
LOC: ICU 06:39 → AC 07:35
PROVIDERS: Admitting Provider Orthopaedic Surgery; Family Provider Orthopaedic Surgery; PCP Family Medicine; Visit Provider Orthopaedic Surgery
PROC: 0SR902Z Replacement of Right Hip Joint with Metal on Polyethylene Synthetic Substitute, Open Approach (ICD-10-PCS; CPT 27130; principal; 2018-11-11 07:45)
DX: M16.11 Unilateral primary osteoarthritis, right hip (principal); I10 Essential (primary) hypertension; E78.5 Hyperlipidemia, unspecified
CPT/HCPCS: 36415; 73502; 73503; 76000; 85014; 85018; 94760; 94762; 97116; 97161; 97530; C1776; A9270; C9290; J0171; J0690; J1100; J1170; J2405; J2704; J3010; J3410

== ENCOUNTER 2018-12-24 05:04 | Inpatient (IN) | payer MEDICARE, OTHER, SELFPAY ==
[2018-11-11 13:25] VITALS: BMI 24.5
[2018-12-24] VITALS (25 sets, daily range): BP systolic 127–181; BP diastolic 70–105; PULSE 64–120; RESP 7–96; TEMP 35.6–37.1; O2SAT 8–100; BMI 23.8
--- NOTE | 2018-12-24 05:08 | DI.US.S_ITS ---
PROCEDURE: US ABDOMEN LIMITED INDICATIONS: RIGHT UPPER QUADRANT PAIN TECHNIQUE: Real-time scanning was performed of the abdominal and retroperitoneal organs, with image documentation. COMPARISON: None. FINDINGS: Liver: Liver is normal in size and homogeneous in echotexture. Gallbladder: The gallbladder wall measures 3.1 mm in diameter. There is a 6 mm diameter gallbladder polyp. No sludge or stones. No pericholecystic fluid. The patient endorses a positive sonographic Florez's sign. Biliary ducts: Intrahepatic bile ducts are non-dilated. Extrahepatic bile duct caliber measures 7.3 mm. Normal is 6-7 mm or less in diameter, or 10 mm or less post-cholecystectomy. Pancreas: Visualized portions of the pancreas are sonographically normal. The duct measures up to 3 mm in diameter. Spleen: Spleen is normal in size and homogeneous in echotexture. IMPRESSION: 1. Gallbladder wall upper limits of normal without pericholecystic fluid or other suspicious findings to suggest acute cholecystitis or choledocholithiasis. 2. Positive sonographic Florez's sign. 3. Prominent pancreatic duct which is the upper limits of normal for size. These findings are concordant with the overnight interpretation. Dictated by: Shama Solis M.D. on 12/24/2018 at 8:26 Approved by: Shama Solis M.D. on 12/24/2018 at 8:43
--- NOTE | 2018-12-24 05:09 | ED_ITS ---
HPI - Abdominal Pain <Piero Gambino DO - Last Filed: 12/24/18 23:59> General Chief Complaint: Abdominal Pain Stated Complaint: RUQ Pain Time Seen by Provider: 12/24/18 05:04 Source: patient Mode of arrival: ambulatory Limitations: no limitations History of Present Illness HPI narrative: 68-year-old female here for evaluation of right upper quadrant abdominal pain she states that was a fairly sudden onset that woke her up from sleep. He has never had any symptoms like this before. No nausea vomiting or diarrhea. No urinary symptoms. No prior abdominal surgeries. Patient was given 100 mcg of fentanyl by EMS prior to arrival. She states that medicine did not help her symptoms at all. Related Data Home Medications Medication Instructions Recorded Confirmed acyclovir 400 mg PO BID #0 06/30/17 12/24/18 cholecalciferol (vitamin D3) 2,000 unit PO QDAY #0 06/30/17 12/24/18 [Vitamin D3] omega [id number] oil [Fish Oil] 1,000 mg PO BID #0 06/30/17 12/24/18 amlodipine 2.5 mg PO DAILY 11/02/18 12/24/18 meloxicam 15 mg PO DAILY 11/02/18 12/24/18 Acetaminophen Extra Strength 1,000 mg PO BID PRN 12/24/18 12/24/18 aspirin 325 mg PO DAILY 12/24/18 12/24/18 simvastatin 40 mg PO DAILY 12/24/18 12/24/18 Previous Rx's Medication Instructions Recorded docusate sodium [DOK] 100 mg PO BID #60 cap 11/12/18 oxycodone 1 - 2 tab PO Q4-6H PRN #0 cap 11/12/18 Allergies Allergy/AdvReac Type Severity Reaction Status Date / Time No Known Allergies Allergy Verified 12/24/18 05:10 Review of Systems <DO Meghan Potter Last Filed: 12/24/18 23:59> Constitutional Denies chills, Denies fever(s) and Denies headache(s) ENT Ears, Nose, Mouth, and Throat: Denies dizziness and Denies headache(s) Cardiovascular Denies chest pain and Denies dyspnea Respiratory Denies dyspnea Gastrointestinal Gastrointestinal: Reports abdominal pain, Denies change in stool character, Denies nausea and Denies vomiting Genitourinary Denies dysuria Musculoskeletal Denies myalgias and Denies arthralgias Integumentary/Breasts Denies lesions and Denies rash Neurologic Denies dizziness and Denies headache(s) Hematologic/Lymphatic Denies easy bleeding and Denies easy bruising PFSH <Piero Gambino DO - Last Filed: 12/24/18 23:59> Medical History Back pain (Acute) Cataracts, bilateral (Acute) Deaf (Acute) Depression (Acute) HTN (hypertension) (Acute) Hyperlipidemia (Acute) Osteoarthritis (Acute) Pneumonia (Acute) Seasonal allergies (Acute) Skin cancer of chest, excluding breast (Acute) Surgical History History of colonoscopy (Acute) Hx of elbow surgery (Acute 01/11/18) Hx of lumbar discectomy (Acute ~2006) Hx of tonsillectomy (Acute) Social History household members: spouse Smoking Status: Current every day smoker alcohol intake: current Exam <Piero Gambino DO - Last Filed: 12/24/18 23:59> Initial Vital Signs Initial Vital Signs: Vital Signs Temperature 98.0 F 12/24/18 05:07 Pulse Rate 83 12/24/18 05:07 Respiratory Rate 30 H 12/24/18 05:07 Blood Pressure 181/93 H 12/24/18 05:07 Pulse Oximetry 95 12/24/18 05:07 Const General: cooperative, No comfortable (Uncomfortable), well developed, well groomed and No acute distress Orientation: alert and awake [facility] Head: normal to inspection and normocephalic Resp Effort & Inspection: normal respiratory effort Auscultation: clear to auscultation bilaterally Cardio Rate: regular rate Rhythm: regular rhythm Pulses: radial pulses present GI Inspection: non-distended Palpation: soft, No firm and tender (Right upper quadrant with positive Florez sign) Back/Spine/Pelvis Back: No CVA tenderness Skin Lesions: no lesions Rashes: no rashes Neuro General: alert and awake Cognition: normal cognition Speech: speech normal Motor: muscle tone normal throughout Sensory Exam: no sensory deficits noted Extrem General: normal to inspection and capillary refill normal Psych Appearance: grossly normal and well kempt <Ramón Ghassan, DO - Last Filed: 12/24/18 08:25> Initial Vital Signs Initial Vital Signs: Vital Signs Temperature 98.0 F 12/24/18 05:07 Pulse Rate 83 12/24/18 05:07 Respiratory Rate 30 H 12/24/18 05:07 Blood Pressure 181/93 H 12/24/18 05:07 Pulse Oximetry 95 12/24/18 05:07 Course <Piero Gambino, DO - Last Filed: 12/24/18 23:59> Orders Ordered: Acetaminophen (Tylenol) 650 mg PO Q4HR PRN PRN Reason: As Needed for Fever/Mild Pain Last Admin: 12/24/18 20:32 Dose: 650 mg Admin: 12/24/18 16:44 Dose: 650 mg Hydromorphone HCl (Dilaudid) 0.5 mg IV Q2HR PRN PRN Reason: Pain, Severe (7-10) Last Admin: 12/24/18 22:16 Dose: 0.5 mg Admin: 12/24/18 19:52 Dose: 0.5 mg Piperacillin/Tazobactam/Dextrose (Zosyn) 3.375 gm in 50 mls @ 100 mls/hr IV Q6H [place] Last Infusion: 12/24/18 21:15 Dose: 0 mls/hr Admin: 12/24/18 20:13 Dose: 100 mls/hr Infusion: 12/24/18 15:55 Dose: 100 mls/hr Admin: 12/24/18 14:49 Dose: 100 mls/hr Infusion: 12/24/18 09:11 Dose: 0 mls/hr Infusion: 12/24/18 08:48 Dose: 100 mls/hr Admin: 12/24/18 08:38 Dose: 100 mls/hr Sodium Chloride (Normal Saline 0.9%) 1,000 mls @ 100 mls/hr IV CONT [place] Last Admin: 12/24/18 14:49 Dose: 100 mls/hr Infusion: 12/24/18 14:49 Dose: 100 mls/hr Admin: 12/24/18 11:44 Dose: 100 mls/hr Pantoprazole Sodium 80 mg/ (Sodium Chloride) 100 mls @ 10 mls/hr IV CONT [place] Last Admin: 12/24/18 17:11 Dose: 8 mg/hr, 10 mls/hr Metoclopramide HCl (Reglan) 10 mg IV NOW PRN PRN Reason: Nausea And Vomiting Ondansetron HCl (Zofran) 4 mg IV Q8HR PRN PRN Reason: Nausea And Vomiting Ondansetron HCl (Zofran) 4 mg IV NOW PRN PRN Reason: Nausea And Vomiting Sodium Chloride (Normal Saline 0.9% Flush) 10 ml IV PRN PRN PRN Reason: Flush Discontinued Medications Sodium Chloride 1,000 ml/ (Bacitracin 50,000 unit) 0 ml IRR NOW ONE Stop: 12/24/18 09:58 Last Admin: 12/24/18 10:00 Dose: 1,000 irrig.soln Fentanyl (Sublimaze) 50 mcg IV Q5MIN PRN PRN Reason: Pain, Moderate (4-6) Hydromorphone HCl (Dilaudid) 1 mg IV NOW ONE Stop: 12/24/18 05:08 Last Admin: 12/24/18 05:19 Dose: 1 mg Hydromorphone HCl (Dilaudid) 0.5 mg IV Q5MIN PRN PRN Reason: Pain, Moderate (4-6) Last Admin: 12/24/18 11:19 Dose: 0.5 mg Admin: 12/24/18 11:11 Dose: 0.5 mg Admin: 12/24/18 11:05 Dose: 0.5 mg Admin: 12/24/18 10:59 Dose: 0.5 mg Sodium Chloride (Normal Saline 0.9%) 1,000 mls @ 1,000 mls/hr IV BOLUS ONE Stop: 12/24/18 08:08 Last Infusion: 12/24/18 08:40 Dose: 0 mls/hr Admin: 12/24/18 07:22 Dose: 1,000 mls/hr Lactated Ringer's (Lactated Ringers) 1,000 mls @ 42 mls/hr IV CONT [place] Last Infusion: 12/24/18 11:44 Dose: 42 mls/hr Admin: 12/24/18 09:57 Dose: 42 mls/hr Lactated Ringer's (Lactated Ringers) 1,000 mls @ 100 mls/hr IV NOW ONE Stop: 12/24/18 19:18 Last Admin: 12/24/18 09:54 Dose: 100 mls/hr Infusion: 12/24/18 09:54 Dose: 100 mls/hr Admin: 12/24/18 09:20 Dose: 100 mls/hr Pantoprazole Sodium 80 mg/ (Sodium Chloride) 100 mls @ 10 mls/hr IV CONT [place] Ketorolac Tromethamine (Toradol) 30 mg IV NOW ONE Stop: 12/24/18 07:02 Last Admin: 12/24/18 07:21 Dose: 30 mg Lorazepam (Ativan) 0.5 mg IV NOW PRN PRN Reason: anxiety/restlessness Stop: 12/24/18 12:30 Last Admin: 12/24/18 11:38 Dose: 0.5 mg Meperidine HCl (Demerol) 25 mg IV Q5MIN PRN PRN Reason: Pain or shivering Morphine Sulfate (Morphine) 4 mg IV NOW ONE Stop: 12/24/18 05:37 Last Admin: 12/24/18 05:39 Dose: 4 mg Neomycin/Polymyxin/Bacitracin (Neosporin) 1 each TOP NOW ONE Stop: 12/24/18 10:15 Last Admin: 12/24/18 10:14 Dose: 1 each Ondansetron HCl (Zofran) 4 mg IV NOW ONE Stop: 12/24/18 05:08 Last Admin: 12/24/18 05:19 Dose: 4 mg Vital Signs - 8 hr 12/24/18 20:00 12/24/18 23:31 Temperature 98.7 F 98.2 F Pulse Rate 99 H 103 H Respiratory Rate 19 16 Blood Pressure 144/84 H 132/72 Pulse Oximetry 98 98 <Ramón Ferrell, - Last Filed: 12/24/18 08:25> Course Narrative: Patient received in sign-out from Dr. Gambino. I performed an independent history and physical exam and have no significant additions to the above. She has been NPO since 7:00 p[address] called with CT scan results noting perforated viscus, likely from a duodenal ulcer. Dr. Anamika howell from general surgery has been contacted and requests patient remain NPO, Zosyn be added to the regimen and NG tube placed. Patient and informed of this information, they understand that surgery is very likely. They have no questions and are in agreement with the plan Orders Ordered: Acetaminophen (Tylenol) 650 mg PO Q4HR PRN PRN Reason: As Needed for Fever/Mild Pain Last Admin: 12/24/18 20:32 Dose: 650 mg Admin: 12/24/18 16:44 Dose: 650 mg Hydromorphone HCl (Dilaudid) 0.5 mg IV Q2HR PRN PRN Reason: Pain, Severe (7-10) Last Admin: 12/24/18 22:16 Dose: 0.5 mg Admin: 12/24/18 19:52 Dose: 0.5 mg Piperacillin/Tazobactam/Dextrose (Zosyn) 3.375 gm in 50 mls @ 100 mls/hr IV Q6H [place] Last Infusion: 12/24/18 21:15 Dose: 0 mls/hr Admin: 12/24/18 20:13 Dose: 100 mls/hr Infusion: 12/24/18 15:55 Dose: 100 mls/hr Admin: 12/24/18 14:49 Dose: 100 mls/hr Infusion: 12/24/18 09:11 Dose: 0 mls/hr Infusion: 12/24/18 08:48 Dose: 100 mls/hr Admin: 12/24/18 08:38 Dose: 100 mls/hr Sodium Chloride (Normal Saline 0.9%) 1,000 mls @ 100 mls/hr IV CONT [place] Last Admin: 12/24/18 14:49 Dose: 100 mls/hr Infusion: 12/24/18 14:49 Dose: 100 mls/hr Admin: 12/24/18 11:44 Dose: 100 mls/hr Pantoprazole Sodium 80 mg/ (Sodium Chloride) 100 mls @ 10 mls/hr IV CONT [place] Last Admin: 12/24/18 17:11 Dose: 8 mg/hr, 10 mls/hr Metoclopramide HCl (Reglan) 10 mg IV NOW PRN PRN Reason: Nausea And Vomiting Ondansetron HCl (Zofran) 4 mg IV Q8HR PRN PRN Reason: Nausea And Vomiting Ondansetron HCl (Zofran) 4 mg IV NOW PRN PRN Reason: Nausea And Vomiting Sodium Chloride (Normal Saline 0.9% Flush) 10 ml IV PRN PRN PRN Reason: Flush Discontinued Medications Sodium Chloride 1,000 ml/ (Bacitracin 50,000 unit) 0 ml IRR NOW ONE Stop: 12/24/18 09:58 Last Admin: 12/24/18 10:00 Dose: 1,000 irrig.soln Fentanyl (Sublimaze) 50 mcg IV Q5MIN PRN PRN Reason: Pain, Moderate (4-6) Hydromorphone HCl (Dilaudid) 1 mg IV NOW ONE Stop: 12/24/18 05:08 Last Admin: 12/24/18 05:19 Dose: 1 mg Hydromorphone HCl (Dilaudid) 0.5 mg IV Q5MIN PRN PRN Reason: Pain, Moderate (4-6) Last Admin: 12/24/18 11:19 Dose: 0.5 mg Admin: 12/24/18 11:11 Dose: 0.5 mg Admin: 12/24/18 11:05 Dose: 0.5 mg Admin: 12/24/18 10:59 Dose: 0.5 mg Sodium Chloride (Normal Saline 0.9%) 1,000 mls @ 1,000 mls/hr IV BOLUS ONE Stop: 12/24/18 08:08 Last Infusion: 12/24/18 08:40 Dose: 0 mls/hr Admin: 12/24/18 07:22 Dose: 1,000 mls/hr Lactated Ringer's (Lactated Ringers) 1,000 mls @ 42 mls/hr IV CONT [place] Last Infusion: 12/24/18 11:44 Dose: 42 mls/hr Admin: 12/24/18 09:57 Dose: 42 mls/hr Lactated Ringer's (Lactated Ringers) 1,000 mls @ 100 mls/hr IV NOW ONE Stop: 12/24/18 19:18 Last Admin: 12/24/18 09:54 Dose: 100 mls/hr Infusion: 12/24/18 09:54 Dose: 100 mls/hr Admin: 12/24/18 09:20 Dose: 100 mls/hr Pantoprazole Sodium 80 mg/ (Sodium Chloride) 100 mls @ 10 mls/hr IV CONT [place] Ketorolac Tromethamine (Toradol) 30 mg IV NOW ONE Stop: 12/24/18 07:02 Last Admin: 12/24/18 07:21 Dose: 30 mg Lorazepam (Ativan) 0.5 mg IV NOW PRN PRN Reason: anxiety/restlessness Stop: 12/24/18 12:30 Last Admin: 12/24/18 11:38 Dose: 0.5 mg Meperidine HCl (Demerol) 25 mg IV Q5MIN PRN PRN Reason: Pain or shivering Morphine Sulfate (Morphine) 4 mg IV NOW ONE Stop: 12/24/18 05:37 Last Admin: 12/24/18 05:39 Dose: 4 mg Neomycin/Polymyxin/Bacitracin (Neosporin) 1 each TOP NOW ONE Stop: 12/24/18 10:15 Last Admin: 12/24/18 10:14 Dose: 1 each Ondansetron HCl (Zofran) 4 mg IV NOW ONE Stop: 12/24/18 05:08 Last Admin: 12/24/18 05:19 Dose: 4 mg Vital Signs - 8 hr 12/24/18 20:00 12/24/18 23:31 Temperature 98.7 F 98.2 F Pulse Rate 99 H 103 H Respiratory Rate 19 16 Blood Pressure 144/84 H 132/72 Pulse Oximetry 98 98 MDM - Abdominal Pain <Piero Gambino DO - Last Filed: 12/24/18 23:59> Lab Data Attestation: I reviewed the patient's lab results. Result diagrams: 12/24/18 13:22 12/24/18 05:13 Lab Results 12/24/18 12/24/18 12/24/18 Range/Units 05:13 05:13 07:20 WBC 15.0 H (4.5-11.0) X10^3/uL RBC 3.68 L (4.0-5.2) X10^6/uL Hgb 11.3 L (12.0-16.0) g/dL Hct 33.8 L (36-46) % MCV 91.8 (80-100) fL MCH 30.7 (26-34) PG MCHC 33.4 (30-36) % RDW 12.9 (11.6-14.8) % Plt Count 451 H (150-400) X10^3/uL Neut % (Auto) 80.9 H (50-75) % Lymph % (Auto) 14.0 L (25-40) % [place] % (Auto) 3.8 (3-14) % Eos % (Auto) 0.9 L (2-4) % Baso % (Auto) 0.4 (0-2) % Neut # (Auto) 76696 H (8373-3027) /uL Lymph # (Auto) 2100 (2087-1713) /uL [place] # (Auto) 600 (0-900) /uL Eos # (Auto) 100 (0-450) /uL Baso # (Auto) 100 (0-100) /uL Sodium 139 (137-145) mmol/L Potassium 4.1 (3.4-5.1) mmol/L Chloride 104 (98-107) mmol/L Carbon Dioxide 25 (22-32) mmol/L BUN 25 H (7-17) mg/dL Creatinine 0.80 (0.52-1.04) mg/dL Estimated GFR > 60.0 (>60) mL/min BUN/Creatinine Ratio 31.3 H (6-22) Glucose 164 H (80-110) mg/dL Lactate 0.9 (0.7-2.1) mmol/L Calcium 9.7 (8.4-10.2) mg/dL Total Bilirubin 0.4 (0.2-1.3) mg/dL AST 22 (14-36) IU/L ALT 23 (9-52) IU/L Alkaline Phosphatase 115 (38-126) U/L Total Protein 7.0 (6.3-8.2) g/dL Albumin 4.1 (3.5-5.0) g/dL Globulin 2.9 (1.7-4.1) g/dL Albumin/Globulin Ratio 1.4 (1.0-2.8) Lipase 652 H (23-300) U/L /02/03 Range/Units 13:22 WBC (4.5-11.0) X10^3/uL RBC (4.0-5.2) X10^6/uL Hgb 10.1 L (12.0-16.0) g/dL Hct 30.4 L (36-46) % MCV (80-100) fL MCH (26-34) PG MCHC (30-36) % RDW (11.6-14.8) % Plt Count (150-400) X10^3/uL Neut % (Auto) (50-75) % Lymph % (Auto) (25-40) % [place] % (Auto) (3-14) % Eos % (Auto) (2-4) % Baso % (Auto) (0-2) % Neut # (Auto) (1516-0762) /uL Lymph # (Auto) (1807-5519) /uL [place] # (Auto) (0-900) /uL Eos # (Auto) (0-450) /uL Baso # (Auto) (0-100) /uL Sodium (137-145) mmol/L Potassium (3.4-5.1) mmol/L Chloride (98-107) mmol/L Carbon Dioxide (22-32) mmol/L BUN (7-17) mg/dL Creatinine (0.52-1.04) mg/dL Estimated GFR (>60) mL/min BUN/Creatinine Ratio (6-22) Glucose (80-110) mg/dL Lactate (0.7-2.1) mmol/L Calcium (8.4-10.2) mg/dL Total Bilirubin (0.2-1.3) mg/dL AST (14-36) IU/L ALT (9-52) IU/L Alkaline Phosphatase (38-126) U/L Total Protein (6.3-8.2) g/dL Albumin (3.5-5.0) g/dL Globulin (1.7-4.1) g/dL Albumin/Globulin Ratio (1.0-2.8) Lipase (23-300) U/L Point of care testing: Urine Dip Bedside Urine Glucose Negative Bedside Urine Bilirubin - Negative Bedside Urine Ketone - Negative Urine Specific [place] 1.015 Bedside Urine Occult Blood - Negative Bedside Urine pH 5.0 Bedside Urine Protein - Negative Bedside Urine Urobilinogen - Negative Bedside Urine Nitrite - Negative Bedside Urine Leukocytes - Negative Esterase Imaging Data US - abdomen: Radiologist's impression: Preliminary read by real radiology Reported positive sonographic Florez sign, with inconclusive evidence of gallbladder wall thickening, no evidence of gallbladder or bile duct stone. These findings are indeterminate for cholecystitis. Borderline pancreatic duct dilation. Gallbladder lumen measures 6 mm and has the appearance of a polyp Majority the images of the gallbladder revealed normal appearing gallbladder wall. There is some measurements a gallbladder wall up to 3 mm No pericholecystic fluid No pancreatic lesion is identified, but the pancreatic duct appears to measure 3 mm diameter MDM Narrative Medical decision making narrative: Right upper quadrant pain. Discussed the c ase with General surgery who stated that he would not take her to the operating room for cholecystectomy based on that ultrasound. I did discuss the case with GI at [facility] Dr[facility] meyer who stated that the patient does not need an emergent ERCP be did recommend an MRCP. Care turned over to Dr. Ferrell follow-up on CT scan result and disposition. <Ramón Ferrell, DO - Last Filed: 12/24/18 08:25> Lab Data Lab Results 12/24/18 12/24/18 12/24/18 Range/Units 05:13 05:13 07:20 WBC 15.0 H (4.5-11.0) X10^3/uL RBC 3.68 L (4.0-5.2) X10^6/uL Hgb 11.3 L (12.0-16.0) g/dL Hct 33.8 L (36-46) % MCV 91.8 (80-100) fL MCH 30.7 (26-34) PG MCHC 33.4 (30-36) % RDW 12.9 (11.6-14.8) % Plt Count 451 H (150-400) X10^3/uL Neut % (Auto) 80.9 H (50-75) % Lymph % (Auto) 14.0 L (25-40) % [place] % (Auto) 3.8 (3-14) % Eos % (Auto) 0.9 L (2-4) % Baso % (Auto) 0.4 (0-2) % Neut # (Auto) 70701 H (4937-1514) /uL Lymph # (Auto) 2100 (2613-9968) /uL [place] # (Auto) 600 (0-900) /uL Eos # (Auto) 100 (0-450) /uL Baso # (Auto) 100 (0-100) /uL Sodium 139 (137-145) mmol/L Potassium 4.1 (3.4-5.1) mmol/L Chloride 104 (98-107) mmol/L Carbon Dioxide 25 (22-32) mmol/L BUN 25 H (7-17) mg/dL Creatinine 0.80 (0.52-1.04) mg/dL Estimated GFR > 60.0 (>60) mL/min BUN/Creatinine Ratio 31.3 H (6-22) Glucose 164 H (80-110) mg/dL Lactate 0.9 (0.7-2.1) mmol/L Calcium 9.7 (8.4-10.2) mg/dL Total Bilirubin 0.4 (0.2-1.3) mg/dL AST 22 (14-36) IU/L ALT 23 (9-52) IU/L Alkaline Phosphatase 115 (38-126) U/L Total Protein 7.0 (6.3-8.2) g/dL Albumin 4.1 (3.5-5.0) g/dL Globulin 2.9 (1.7-4.1) g/dL Albumin/Globulin Ratio 1.4 (1.0-2.8) Lipase 652 H (23-300) U/L /02/03 Range/Units 13:22 WBC (4.5-11.0) X10^3/uL RBC (4.0-5.2) X10^6/uL Hgb 10.1 L (12.0-16.0) g/dL Hct 30.4 L (36-46) % MCV (80-100) fL MCH (26-34) PG MCHC (30-36) % RDW (11.6-14.8) % Plt Count (150-400) X10^3/uL Neut % (Auto) (50-75) % Lymph % (Auto) (25-40) % [place] % (Auto) (3-14) % Eos % (Auto) (2-4) % Baso % (Auto) (0-2) % Neut # (Auto) (8957-4462) /uL Lymph # (Auto) (8001-0240) /uL [place] # (Auto) (0-900) /uL Eos # (Auto) (0-450) /uL Baso # (Auto) (0-100) /uL Sodium (137-145) mmol/L Potassium (3.4-5.1) mmol/L Chloride (98-107) mmol/L Carbon Dioxide (22-32) mmol/L BUN (7-17) mg/dL Creatinine (0.52-1.04) mg/dL Estimated GFR (>60) mL/min BUN/Creatinine Ratio (6-22) Glucose (80-110) mg/dL Lactate (0.7-2.1) mmol/L Calcium (8.4-10.2) mg/dL Total Bilirubin (0.2-1.3) mg/dL AST (14-36) IU/L ALT (9-52) IU/L Alkaline Phosphatase (38-126) U/L Total Protein (6.3-8.2) g/dL Albumin (3.5-5.0) g/dL Globulin (1.7-4.1) g/dL Albumin/Globulin Ratio (1.0-2.8) Lipase (23-300) U/L Point of care testing: Urine Dip Bedside Urine Glucose Negative Bedside Urine Bilirubin - Negative Bedside Urine Ketone - Negative Urine Specific [place] 1.015 Bedside Urine Occult Blood - Negative Bedside Urine pH 5.0 Bedside Urine Protein - Negative Bedside Urine Urobilinogen - Negative Bedside Urine Nitrite - Negative Bedside Urine Leukocytes - Negative Esterase Discharge Plan Departure Patient Disposition: Admitted As Inpatient Clinical Impression: Bowel perforation Discharge Date/Time: 12/24/18 08:54 Interventions: ED Discharge Assessment Last Done: 12/24/18 08:54 Admit Date/Time: 12/24/18 08:43 Admit Provider: Teodoro Torres
[2018-12-24] MEDS: ONDANSETRON 4 MG/2 ML INJ IV (05:19)
[2018-12-24] MEDS: HYDROMORPHONE 1 MG INJ IV (05:19)
[2018-12-24 05:25] LABS: Add Manual Diff / Slide Review NO; Basophils Absolute Auto 100 /uL (0-100); Basophils Percent Auto 0.4 % (0-2); Eosinophils Absolute Auto 100 /uL (0-450); Eosinophils Percent Auto 0.9 % (2-4); Hematocrit 33.8 % (36-46); Hemoglobin 11.3 g/dL (12.0-16.0); Lymphocytes Absolute Auto 2100 /uL (1100-4500); Mean Corpuscular HGB Conc 33.4 % (30-36); Mean Corpuscular Hemoglobin 30.7 PG (26-34); Mean Corpuscular Volume 91.8 fL (80-100); Monocytes Absolute Auto 600 /uL (0-900); Monocytes Percent Auto 3.8 % (3-14); Neutrophils Absolute Auto 12100 /uL (1500-7000); Neutrophils Percent Auto 80.9 % (50-75); Platelet Count 451 X10^3/uL (150-400); Red Blood Cell Count 3.68 X10^6/uL (4.0-5.2); Red Cell Distribution Width 12.9 % (11.6-14.8)
[2018-12-24 05:38] LABS: Alanine Aminotransferase 23 IU/L (9-52); Albumin 4.1 g/dL (3.5-5.0); Albumin Globulin Ratio 1.4 (1.0-2.8); Alkaline Phosphatase 115 U/L (38-126); Aspartate Aminotransferase 22 IU/L (14-36); BUN Creatinine Ratio 31.3 (6-22); Bilirubin Total 0.4 mg/dL (0.2-1.3); Blood Urea Nitrogen 25 mg/dL (7-17); Calcium 9.7 mg/dL (8.4-10.2); Carbon Dioxide 25 mmol/L (22-32); Chloride 104 mmol/L (98-107); Estimated Glomerular Filt Rate > 60.0 mL/min (>60); Globulin 2.9 g/dL (1.7-4.1); Glucose 164 mg/dL (80-110); HEMOLYSIS < 15 (0-50); Lipase 652 U/L (23-300); Potassium 4.1 mmol/L (3.4-5.1); Sodium 139 mmol/L (137-145)
[2018-12-24] MEDS: MORPHINE 4 MG/ML INJ IV (05:39)
[2018-12-24] MEDS: KETOROLAC 60 MG/2 ML VIAL 30 MG IV (07:21)
[2018-12-24] MEDS: SODIUM CHLORIDE 0.9% 1,000 ML 1000 ML IV (07:22)
--- NOTE | 2018-12-24 07:38 | DI.CT.S_ITS ---
PROCEDURE: CT ABDOMEN PELVIS W CON INDICATIONS: Right upper quadrant abdominal pain TECHNIQUE: After the administration of intravenous contrast, 5 mm thick sections acquired from the diaphragm to the symphysis. 5 mm coronal and sagittal reformats were acquired. For radiation dose reduction, the following was used: automated exposure control, adjustment of mA and/or kV according to patient size. COMPARISON: None. FINDINGS: Image quality: Excellent. ABDOMEN: Lung bases: Lung bases are clear. Heart size is normal. Solid organs: Liver is normal in size and enhancement. Gallbladder is mildly distended and contains a small stone.. Mildly dilated extrahepatic duct and central intrahepatic ducts. Pancreas enhances normally. Spleen is normal in size and enhancement. No adrenal nodules. Kidneys demonstrate normal size and enhancement, without hydronephrosis. Peritoneum and bowel: There are one or 2 ulcers present, in the proximal duodenum and possibly distal stomach as well. There is associated free air immediately adjacent to the structures. There is a small amount of perihepatic fluid and the pelvic fluid. There is inflammatory change tracking to the region of the gallbladder. Findings are consistent with perforated ulcer. Bowel loops demonstrate normal wall thickness and caliber. No free fluid or air. Nodes and vessels: No retroperitoneal or mesenteric adenopathy by size criteria. Aorta and inferior vena cava are normal in size. Miscellaneous: No ventral hernias. PELVIS: Genitourinary: Bladder wall thickness is normal. Miscellaneous: No inguinal hernias or adenopathy. Bones: No suspicious bony lesions. No vertebral body compression fractures. Total right hip arthroplasty IMPRESSION: 1. There is evidence of a perforated viscus. There is a proximal duodenal ulcer and possibly a distal gastric ulcer. It is likely that the free air relates to perforated ulcer. 2. There is inflammatory change tracking to the gallbladder and minimal perihepatic and deep pelvic fluid. 3. Small gallstone. 4. Mild biliary ductal dilatation. Comment: Findings were discussed with Dr. Gambino at the time of study dictation on 12/24/18 at 0801 hrs.. Dictated by: Jacky Loving M.D. on 12/24/2018 at 7:54 Approved by: Jacky Loving M.D. on 12/24/2018 at 8:02
[2018-12-24 07:41] LABS: Lactate (Lactic Acid) 0.9 mmol/L (0.7-2.1)
[2018-12-24] MEDS: PIPERACILLIN-TAZO 3.375 GM/50 ML FROZ.PIGGY IV ×3 (08:38→20:13)
--- NOTE | 2018-12-24 08:47 | PM.HP.1 ---
History of Present Illness Date Patient Seen: 12/24/18 Time Patient Seen: 08:47 Chief complaint: RUQ Pain Narrative: 68-year-old white female patient who has been on meloxicam for a year and a half and who 1 month ago had a right hip replacement comes emergency room this morning with sudden onset of severe incapacitating upper abdominal pain last night. She has had some upper abdominal pain over the last week or 10 days but last night it became incapacitating. CT scan shows a perforated duodenal ulcer. Patient History Medical History Back pain (Acute) Cataracts, bilateral (Acute) Deaf (Acute) Depression (Acute) HTN (hypertension) (Acute) Hyperlipidemia (Acute) Osteoarthritis (Acute) Pneumonia (Acute) Seasonal allergies (Acute) Skin cancer of chest, excluding breast (Acute) Surgical History History of colonoscopy (Acute) Hx of elbow surgery (Acute 01/11/18) Hx of lumbar discectomy (Acute ~2006) Hx of tonsillectomy (Acute) Family & Social History Safety & Behavioral: Feels Safe in Current Yes Environment Meds Home Medications Medication Instructions Recorded Confirmed Type acyclovir 400 mg PO BID #0 06/30/17 11/11/18 History cholecalciferol (vitamin D3) 2,000 unit PO QDAY #0 06/30/17 11/11/18 History [Vitamin D3] omega 4-hjd-kit-fish oil [Fish Oil] 1,000 mg PO BID #0 06/30/17 11/11/18 History simvastatin 40 mg PO HS #0 06/30/17 11/11/18 History amlodipine 2.5 mg PO DAILY 11/02/18 11/11/18 History meloxicam 15 mg PO DAILY 11/02/18 11/11/18 History acetaminophen 975 mg PO TID #60 tab 11/12/18 Rx aspirin 81 mg PO BID #60 tab 11/12/18 Rx docusate sodium [DOK] 100 mg PO BID #60 cap 11/12/18 Rx oxycodone 1 - 2 tab PO Q4-6H PRN #0 cap 11/12/18 11/02/18 Rx Allergies Allergy/AdvReac Type Severity Reaction Status Date / Time No Known Allergies Allergy Verified 12/24/18 05:10 Review of Systems Review of Systems All systems reviewed & are unremarkable except as noted in HPI and below Exam Vital Signs (past 8 hours): - 12/24/18 05:07 12/24/18 06:28 12/24/18 07:30 Temperature 98.0 F Pulse Rate 83 87 64 Respiratory Rate 30 H 17 18 Blood Pressure 181/93 H Blood Pressure [Left Arm] 181/91 H 164/93 H Pulse Oximetry 95 95 95 Oxygen Delivery Method Room Air Narrative Exam Narrative: Patient is alert and oriented complaining of exquisite upper abdominal pain vital signs are stable she is afebrile. Lungs are clear with no rales or wheezes Heart regular rhythm no murmur Abdomen is rigid in the upper quadrants with exquisite right upper quadrant tenderness. no organomegaly or masses are noted. Remaining physical is unremarkable. Objective Labs Result Diagrams: 12/24/18 05:13 12/24/18 05:13 Labs: Laboratory Results - last 24 hr 12/24/18 12/24/18 12/24/18 05:13 05:13 07:20 WBC 15.0 H RBC 3.68 L Hgb 11.3 L Hct 33.8 L MCV 91.8 MCH 30.7 MCHC 33.4 RDW 12.9 Plt Count 451 H Neut % (Auto) 80.9 H Lymph % (Auto) 14.0 L [place] % (Auto) 3.8 Eos % (Auto) 0.9 L Baso % (Auto) 0.4 Neut # (Auto) 96549 H Lymph # (Auto) 2100 [place] # (Auto) 600 Eos # (Auto) 100 Baso # (Auto) 100 Sodium 139 Potassium 4.1 Chloride 104 Carbon Dioxide 25 BUN 25 H Creatinine 0.80 Estimated GFR > 60.0 BUN/Creatinine Ratio 31.3 H Glucose 164 H Lactate 0.9 Calcium 9.7 Total Bilirubin 0.4 AST 22 ALT 23 Alkaline Phosphatase 115 Total Protein 7.0 Albumin 4.1 Globulin 2.9 Albumin/Globulin Ratio 1.4 Lipase 652 H Assessment & Plan Assessment & Plan narrative: Patient has CT scan evidence of a perforated duodenal ulcer. She is received a dose of intravenous Zosyn and I have explained the nature of the problem and the solution to the patient and her . They understand that she needs a laparotomy and closure of the ulcer. No major gastric resection will occur. She will be started on PPI therapy. Patient understands and has no questions unanswered.
--- NOTE | 2018-12-24 08:51 | PC.NURSE ---
to Or with Zosyn running.
--- NOTE | 2018-12-24 08:52 | PC.NURSE ---
Dr. Burleson said to hold on NGT since pt was going straight to OR. it will be done in OR. OR nurses, Jazzy carranza.
--- NOTE | 2018-12-24 09:09 | SUR.OPER ---
Supine on padded OR bed, head on pillow, arms secured on padded arm boards at <90 degrees abduction, legs uncrossed, safety belt at thigh, tape over blanket over lower legs.
[2018-12-24] MEDS: LACTATED RINGERS 1,000 ML 100 ML IV ×2 (09:20→09:54)
[2018-12-24] MEDS: LACTATED RINGERS 1,000 ML 42 ML IV (09:57)
[2018-12-24] MEDS: SODIUM CHLORIDE IRRIG SOLUTION 1,000 ML, BACITRACIN 50,000 UNIT IRR (10:00)
[2018-12-24] MEDS: NEOMYCIN/POLYMYXIN/BACITRA UD OINT 1 EACH TOP (10:14)
--- NOTE | 2018-12-24 10:36 | PM.OP.1 ---
Operative Date/Time/Diagnoses Date of procedure: 12/24/18 Time of procedure: 10:36 Pre-op diagnosis: Perforated pre-pyloric gastric ulcer Post-op diagnosis: same Procedure & Clinicians Procedure: Exploratory laparotomy over-sew of perforated pre-pyloric gastric ulcer with thal omental patch Same procedure as scheduled: Yes Surgeon: Teodoro Torres Click Yes if Unassisted: Yes Anesthesia Type: General Operative Notes Findings: Large 1.5 cm perforation in the anterior pre-pyloric gastric wall. surrounding turbid fluid. Bile leaking from perforation. Closure Type: primary Specimen(s): other (Peritoneal cultures) Estimated Blood Loss (mL): 100 Blood products transfused: none Procedure in detail: Patient was properly identified during surgical pause given a general endotracheal anesthetic oral gastric tube was placed Bartholomew catheter was placed. she was prepped and draped in a sterile fashion with exposure of the upper abdomen. Upper midline incision was made through the linea alba. There was turbid fluid encountered immediately on opening the peritoneum. This was cultured for aerobes and anaerobes. With the Max retractor in place the stomach was mobilized into the operative field and identified easily was a huge perforated ulcer in the pre-pyloric gastric antrum. there was surrounding turbid fluid and there was bile leaking from the ulcer. In order to facilitate closure of this ulcer I mobilized the duodenum with estrella technique. then was able to close the ulcer in 2 layers with 3 0 silk interrupted sutures effecting a horizontal closure so as not to compromise the pylorus. after a watertight closure was accomplished then I placed a patch of omentum over the closure and tied it in place with those same 3 0 silk sutures used to close the ulcer. This is a thal omental patch. A 10 mm Tyler drain was then placed in Theodore's pouch brought in 3 right upper quadrant stab wound the drain was sutured the skin with fine nylon. midline fascia closed with 1. Maxon. Prior to closure of the operative field was irrigated with bacitracin saline and aspirated dry. the subcu was irrigated also with bacitracin saline aspirated dry there was excellent hemostasis with the Bovie the skin was closed with norman sterile dressings applied procedures very well tolerated. Complications: none Condition: stable Disposition: PACU
[2018-12-24] MEDS: HYDROMORPHONE 2 MG INJ 0.5 MG IV ×4 (10:59→11:19)
--- NOTE | 2018-12-24 11:20 | SUR.PHASEI ---
1059 awoke, crying out/moaning with pain, stating that it hurts and that she thought 'this pain would be over'. Rx given, didn't give number, estimated number based in intermittent reponses to pain with sleeping in between. Resp unlabored, skin warm and dry, Abdomen remains soft, dressing dry. 1119 States that pain is not improving, however she is dozing with less frequent crying out with pain. VSS, no change in abdominal status, ALLISON not filling quickly as it had upon transfer to PACU.
[2018-12-24] MEDS: LORazepam 2 MG/ML INJ 0.5 MG IV (11:38)
[2018-12-24] MEDS: SODIUM CHLORIDE 0.9% 1,000 ML 100 ML IV ×2 (11:44→14:49)
--- NOTE | 2018-12-24 11:44 | SUR.PHASEI ---
Dr. Almanzar called, informed of patient status, pain level, VSS. Order given - see emar for medication. 1145 Patient currently dozing, arouses, moans occasionally, much calmer; rates pain 10/10, however, I pointed out that she is dozing, more relaxed. Responds readily to voice. Resp even and regular, Skin warm and dry, VSS.
--- NOTE | 2018-12-24 12:09 | SUR.PHASEI ---
report called to floor, waiting for resp rate to increase prior to transfer.
--- NOTE | 2018-12-24 12:18 | SUR.PHASEI ---
arouses easily to voice, mostly sleeping. hemodynamically stable, When ask how she was doing, replied Not very good. Reassured patient that she will be improving, said 'OK' and returned to sleep.
--- NOTE | 2018-12-24 12:54 | SUR.PHASEI ---
1254 Returned from dropping off patient; hemodynamically stable, Resp 6 on transfer, watched patient, resp 7-8 with a room air sat of 98%. Patient placed on continuous pulse oximeter. MW Stephens states that she is comfortable with the patient and declined our continuous pulse oximeter for OPD. She has called RT for a unit. Patients awakes easily, responds appropriately. Taking ice chips, states that she likes sleeping. [place] shadow of drainage on right side of abdominal dressing, approx 2.5 oblong. SCD's on. RN and GRADUATING MACHINE OPERATOR in room with patient. States that her pain is 6-7/10 but shows no non-verbal evidence of pain. No moaning, grimace; she is calm and relaxed.
[2018-12-24 13:36] LABS: Hematocrit 30.4 % (36-46); Hemoglobin 10.1 g/dL (12.0-16.0)
--- NOTE | 2018-12-24 14:47 | PC.NURSE ---
Pt is A&Ox3 when she is awake, but respirations are between 7-10 in one minute. Pt does have some small periods of apnea but she arouses very quickly. She will be moved to room 213 for more visibility. Pt had a small dose of dilaudid down in recovery and she is sleepy. Pt has a ML dressing that is cdi with Hammad drain, around drain pt does have some bloody drainage. Last respirations were 10 and pt was easily arousable.
[2018-12-24] MEDS: ACETAMINOPHEN 325 MG TABLET 650 MG PO ×2 (16:44→20:32)
[2018-12-24] MEDS: PANTOPRAZOLE 80 MG in SODIUM CHLORIDE 0.9% 100 ML 10 ML IV (17:11)
--- NOTE | 2018-12-24 18:53 | PC.NURSE ---
Addendum entered by Mary Anne Willams R.N. 12/24/18 21:53: Pt reports attempting to reposition caused increasing abdominal cramping. Denies passing gas at this time. Denies any belching. Taking sips water sparingly. Was given iv dilaudid as per emar. Pt denies pain @ rest, but states pain 8/10 with any movement. Pt reports is able to sleep. This curriculum writer made attempt to contact Dr. Torres to discuss pain management for this patient. SPORTS INTERN, Corey, informs this curriculum writer MD has case in O.R. and will relay message. No further complaints by pt at this time. No compromise in respiratory status this shift. Pt has been awake, alert, conversant much of shift. Original Note: Pt moved to room 216 from 211 for closer monitoring s/p surgery. Pt is wakeful and appropriate with oxygen levels upper 90's on room air. Pillow provided for abdominal splinting and foot of bed elevated with pillow under knees to provide comfort to abdomen. ALLISON compressed. Shadowy drainage visible to abdominal dressing right lateral aspect contained within dressing. BL scd's in place. Clear liquids without caffeine. Protonix drip infusing as ordered. Dr. Torres has seen patient this evening shift.
[2018-12-24] MEDS: HYDROMORPHONE 1 MG INJ 0.5 MG IV ×2 (19:52→22:16)
--- NOTE | 2018-12-24 21:55 | PC.NURSE ---
Pt a/o x 3. SCDs applied, pt refusing to ambulate at this time due to pain with any movement. VO Dr Burleson okay to give acetaminophen 650mg Q4 hours PRN for pain. Dr Burleson rounding at 1615, protonix gtt started per MD. Pt has ML incision dressing with small amounts of sanguineous fluid at j/p drain site.
--- NOTE | 2018-12-24 23:46 | PC.NURSE ---
12/24 @ 8797 Patient stated that she would like to have her SCD's off that they were keeping her up when she was trying to fall asleep. Removed Patient's SCD's and reminded patient to ankle wave. Call light within reach and bed alarm is active. Reported to Laura Nickerson, RN
[2018-12-25] VITALS (9 sets, daily range): BP systolic 131–149; BP diastolic 57–81; PULSE 79–104; RESP 14–18; TEMP 36.5–37.1; O2SAT 92–98
[2018-12-25] MEDS: SODIUM CHLORIDE 0.9% 1,000 ML 100 ML IV (02:00)
[2018-12-25] MEDS: PIPERACILLIN-TAZO 3.375 GM/50 ML FROZ.PIGGY IV ×4 (02:44→20:32)
[2018-12-25] MEDS: HYDROMORPHONE 1 MG INJ 0.5 MG IV ×2 (03:05→08:12)
[2018-12-25] MEDS: PANTOPRAZOLE 80 MG in SODIUM CHLORIDE 0.9% 100 ML 10 ML IV ×2 (09:37→21:32)
--- NOTE | 2018-12-25 09:46 | PM.PN.1 ---
Subjective Date Patient Seen: 12/25/18 Time Patient Seen: 09:46 Interval history: Patient's 24 hours postop over-sewing of a perforated pre-pyloric gastric ulcer. She had localized peritonitis. Subjectively she feels much better than preoperatively. She has mild to moderate incisional pain. She is tolerating clear liquids without any additional pain. Exam Vital Signs (past 8 hours): - 12/25/18 03:00 12/25/18 05:48 12/25/18 08:33 Temperature 98.6 F Pulse Rate 92 H Respiratory Rate 16 Blood Pressure 131/77 Pulse Oximetry 98 98 96 12/25/18 09:00 Temperature 98.4 F Pulse Rate 94 H Respiratory Rate 14 Blood Pressure 135/78 Pulse Oximetry 97 Oxygen Delivery Method Room Air Oxygen Flow Rate 0 Narrative Exam Narrative: Patient is afebrile. Lungs are clear. Abdomen is not distended and shows only the expected amount of his incisional pain. Tyler-Prabhakar drain is producing serosanguineous fluid which is not bilious. Objective Labs Result Diagrams: 12/24/18 13:22 12/24/18 05:13 Labs: Laboratory Results - last 24 hr 12/24/18 13:22 Hgb 10.1 L Hct 30.4 L Assessment & Plan Assessment & Plan narrative: Patient is recovering very nicely following over-sewing repair of a perforated pre-pyloric ulcer. No sign of any gastric contents leaking based on the Tyler-Prabhakar drain. Her abdominal pain is much improved. Patient will continue on a IV Protonix drip. I am checking her for H pylori. Patient has tolerated a clear liquid diet I will advance her to a full liquid diet today. Continue IV fluids. Patient has to get up and ambulate today. She has SCDs for DVT prophylaxis I am not employing Lovenox because of her ulcer. Quality VTE Deep Vein Thrombosis/Pulmonary Embolism Present on Admission: No
--- NOTE | 2018-12-25 09:50 | P.PN_ITS ---
Subjective Date Patient Seen: 12/25/18 Time Patient Seen: 09:46 Interval history: Patient's 24 hours postop over-sewing of a perforated pre- pyloric gastric ulcer. She had localized peritonitis. Subjectively she feels much better than preoperatively. She has mild to moderate incisional pain. She is tolerating clear liquids without any additional pain. Exam Vital Signs (past 8 hours): - 12/25/18 03:00 12/25/18 05:48 12/25/18 08:33 Temperature 98.6 F Pulse Rate 92 H Respiratory Rate 16 Blood Pressure 131/77 Pulse Oximetry 98 98 96 12/25/18 09:00 Temperature 98.4 F Pulse Rate 94 H Respiratory Rate 14 Blood Pressure 135/78 Pulse Oximetry 97 Oxygen Delivery Method Room Air Oxygen Flow Rate 0 Narrative Exam Narrative: Patient is afebrile. Lungs are clear. Abdomen is not distended and shows only the expected amount of his incisional pain. Tyler-Prabhakar drain is producing serosanguineous fluid which is not bilious. Objective Labs Result Diagrams: 12/24/18 13:22 12/24/18 05:13 Labs: Laboratory Results - last 24 hr 12/24/18 13:22 Hgb 10.1 L Hct 30.4 L Assessment & Plan Assessment & Plan narrative: Patient is recovering very nicely following over- sewing repair of a perforated pre-pyloric ulcer. No sign of any gastric contents leaking based on the Tyler-Prabhakar drain. Her abdominal pain is much improved. Patient will continue on a IV Protonix drip. I am checking her for H pylori. Patient has tolerated a clear liquid diet I will advance her to a full liquid diet today. Continue IV fluids. Patient has to get up and ambulate today. She has SCDs for DVT prophylaxis I am not employing Lovenox because of her ulcer. Quality VTE Deep Vein Thrombosis/Pulmonary Embolism Present on Admission: No
[2018-12-25] MEDS: DEXTROSE 5%-0.45NS W/KCL 20MEQ 1,000 ML 84 MEQ IV ×2 (10:09→20:32)
--- NOTE | 2018-12-25 12:10 | CM.DANOTE ---
DCP/Assessment: Reviewed chart. Patient is a 68yr old female admitted to [facility] with abdominal pain/ulcer. PCP is Dr. Reyes. Primary payor is 1)Medicare 2)[facility]. Met with patient explained CM/SW role. Patient alert and oriented, resting in bed at time of visit. Patient reports that she resides with her spouse/Sedrick in [place]. Patient underwent right IVANA in October 2018. Patient continues to go to outpatient therapy at [facility]. Patient also reports that she has all needed DME in the residence. At this time d/c needs unknown. Patient admitted under surgeon/Dr. Burleson. Patient underwent laparotomy and closure of ulcer on 12-24-18. CM team to continue to follow for needs. Patient anticipates that she will be discharging home within the next 24-48hrs. P: Anticipate home when stable. Continue to follow. CUATE Carpenter Discharge Planning/Care Management CM Discharge Assessment Start: 12/25/18 11:50 Freq: Status: Active Protocol: Document 12/25/18 11:50 KJS (Rec: 12/25/18 12:10 KJS [id number]) Discharge Planning Assessment Assigned Solicitor Patent CUATE Carpenter Contact Information Sedrick Burgess (spouse) [phone] Advance Directives? No: Declines further informaton, has paperwork at home Advance Directives on File No History Provided By Patient Medical Record Prior Living Arrangements House Household Members spouse Type of transporation used prior to Drives own vehicle admit Independent with ADL's Yes Is patient alert and oriented? Yes Caregiver for Another No Community Services used prior to Physical Therapy admission: Comment Pateint attends outpatient PT at [facility]. Underwent right IVANA in October [address] Giles. DME Already Rented / Owned [facility] / [facility] Patient/Family Preference OP PT Therapy Comment [facility] outpatient therapy Barriers to Discharge No Discharge Plan Home Transportation Arrangement Spouse Whiteboard Updated in Patient Room with Yes name and ext. # of Solicitor Patent Review Status In Process Next Review Type Continued Stay Review
[2018-12-25 12:11] LABS: Add Manual Diff / Slide Review NO; Basophils Absolute Auto 0 /uL (0-100); Basophils Percent Auto 0.2 % (0-2); Eosinophils Absolute Auto 0 /uL (0-450); Hemoglobin 8.8 g/dL (12.0-16.0); Lymphocytes Absolute Auto 1200 /uL (1100-4500); Lymphocytes Percent Auto 8.3 % (25-40); Mean Corpuscular HGB Conc 32.6 % (30-36); Mean Corpuscular Hemoglobin 30.4 PG (26-34); Mean Corpuscular Volume 93.4 fL (80-100); Monocytes Absolute Auto 900 /uL (0-900); Monocytes Percent Auto 6.2 % (3-14); Neutrophils Absolute Auto 12100 /uL (1500-7000); Neutrophils Percent Auto 85.3 % (50-75); Platelet Count 350 X10^3/uL (150-400); Red Blood Cell Count 2.89 X10^6/uL (4.0-5.2); Red Cell Distribution Width 13.1 % (11.6-14.8); White Blood Cell Count 14.2 X10^3/uL (4.5-11.0)
[2018-12-25] MEDS: HYDROMORPHONE 0.5 MG INJ IV ×2 (14:17→20:34)
[2018-12-25] MEDS: PANTOPRAZOLE 40 MG VIAL 80 MG IV (21:34)
[2018-12-26] VITALS (10 sets, daily range): BP systolic 146–164; BP diastolic 84–103; PULSE 76–90; RESP 16–18; TEMP 36.4–37.2; O2SAT 92–98
[2018-12-26] MEDS: PIPERACILLIN-TAZO 3.375 GM/50 ML FROZ.PIGGY IV ×4 (03:08→19:36)
[2018-12-26] MEDS: SODIUM CHLORIDE 0.9% FLUSH 10 ML IV (03:10)
[2018-12-26 05:43] LABS: Add Manual Diff / Slide Review NO; Basophils Absolute Auto 0 /uL (0-100); Basophils Percent Auto 0.3 % (0-2); Eosinophils Absolute Auto 100 /uL (0-450); Eosinophils Percent Auto 1.3 % (2-4); Hematocrit 26.7 % (36-46); Hemoglobin 9.2 g/dL (12.0-16.0); Lymphocytes Absolute Auto 1500 /uL (1100-4500); Lymphocytes Percent Auto 13.7 % (25-40); Mean Corpuscular HGB Conc 34.3 % (30-36); Mean Corpuscular Hemoglobin 31.3 PG (26-34); Mean Corpuscular Volume 91.1 fL (80-100); Monocytes Absolute Auto 700 /uL (0-900); Monocytes Percent Auto 6.1 % (3-14); Neutrophils Absolute Auto 8500 /uL (1500-7000); Neutrophils Percent Auto 78.6 % (50-75); Platelet Count 339 X10^3/uL (150-400); Red Blood Cell Count 2.93 X10^6/uL (4.0-5.2); Red Cell Distribution Width 12.9 % (11.6-14.8); White Blood Cell Count 10.8 X10^3/uL (4.5-11.0)
--- NOTE | 2018-12-26 06:38 | PC.NURSE ---
Director Retirement summary PO Day 2. Abdominal pain improved; no analgesics needed. No flatus present. Dressing CDI; some shadow drainage remains within outline. ALLISON drain output 15 cc serosanguineous drainage this shift. Per evening shift RN, pt ambulated twice with day shift. Pt declined offer to ambulate this shift. Compliant with SCDs.
[2018-12-26] MEDS: PANTOPRAZOLE 80 MG in SODIUM CHLORIDE 0.9% 100 ML 10 ML IV ×2 (07:54→19:31)
--- NOTE | 2018-12-26 10:31 | PM.PN.1 ---
Subjective Date Patient Seen: 12/26/18 Time Patient Seen: 10:32 Interval history: Patient is 2 days post over-sew of a perforated pre-pyloric gastric ulcer. She is feeling better. No bowel movements yet. Tolerating a full liquid diet with no nausea vomiting. Exam Vital Signs (past 8 hours): - 12/26/18 03:24 12/26/18 07:30 12/26/18 08:20 Temperature 98.9 F 98.7 F Pulse Rate 90 84 Respiratory Rate 16 16 Blood Pressure 146/84 H 156/90 H Pulse Oximetry 94 94 97 Oxygen Delivery Method Room Air Oxygen Flow Rate 0 Narrative Exam Narrative: Patient is alert and oriented. Afebrile. Minimal complaints of pain. Abdomen is soft with normal incisional tenderness. The wound is healing beautifully without sign of infections. Tyler-Prabhakar drain is producing mild amount of serosanguineous fluid without evidence of bile. Objective Labs Result Diagrams: 12/26/18 05:30 12/24/18 05:13 Labs: Laboratory Results - last 24 hr 12/25/18 12/26/18 12:00 05:30 WBC 14.2 H 10.8 RBC 2.89 L 2.93 L Hgb 8.8 L 9.2 L Hct 27.0 L 26.7 L MCV 93.4 91.1 MCH 30.4 31.3 MCHC 32.6 34.3 RDW 13.1 12.9 Plt Count 350 339 Neut % (Auto) 85.3 H 78.6 H Lymph % (Auto) 8.3 L 13.7 L [place] % (Auto) 6.2 6.1 Eos % (Auto) 0.0 L 1.3 L Baso % (Auto) 0.2 0.3 Neut # (Auto) 99490 H 8500 H Lymph # (Auto) 1200 1500 [place] # (Auto) 900 700 Eos # (Auto) 0 100 Baso # (Auto) 0 0 Assessment & Plan Assessment & Plan narrative: Patient is recovering from over-sew closure of a perforated ulcer. She remains on a Protonix drip. I ordered H pylori study yesterday which is not back yet. I will give her bismuth in case she does have H pylori. She remains on IV Zosyn. She is improving. Quality VTE Deep Vein Thrombosis/Pulmonary Embolism Present on Admission: No
[2018-12-26] MEDS: BISMUTH SUBSALICYLATE 525 MG/30 ML SUSP PO ×4 (12:20→19:40)
[2018-12-26] MEDS: HYDROMORPHONE 0.5 MG INJ IV ×2 (12:33→19:35)
[2018-12-26] MEDS: BISACODYL 10 MG SUPP PR ×2 (12:33→19:39)
--- NOTE | 2018-12-26 14:08 | PC.NURSE ---
1400 Pt resting in bed, declines a dressing being applied to abd inc. 4x4 applied to ALLISON site. Pt voiding w/o diff, passing flatus. Pt up ambulating in [place] x 1 this shift.
[2018-12-27] VITALS (8 sets, daily range): BP systolic 139–160; BP diastolic 86–101; PULSE 72–84; RESP 15–18; TEMP 36.5–37.3; O2SAT 95–99
[2018-12-27] MEDS: PIPERACILLIN-TAZO 3.375 GM/50 ML FROZ.PIGGY IV ×4 (02:15→20:50)
[2018-12-27] MEDS: DEXTROSE 5%-0.45NS W/KCL 20MEQ 1,000 ML 84 MEQ IV ×2 (03:28→22:36)
[2018-12-27] MEDS: HYDROMORPHONE 0.5 MG INJ IV (03:40)
[2018-12-27] MEDS: PANTOPRAZOLE 80 MG in SODIUM CHLORIDE 0.9% 100 ML 10 ML IV (06:08)
[2018-12-27] MEDS: SODIUM CHLORIDE 0.9% FLUSH 10 ML IV ×3 (08:59→13:52)
[2018-12-27] MEDS: BISMUTH SUBSALICYLATE 525 MG/30 ML SUSP PO ×3 (09:00→20:57)
[2018-12-27] MEDS: ACETAMINOPHEN 325 MG TABLET 650 MG PO (09:03)
[2018-12-27] MEDS: BISACODYL 10 MG SUPP PR ×2 (09:04→20:55)
--- NOTE | 2018-12-27 09:52 | P.PN_ITS ---
Subjective Date Patient Seen: 12/27/18 Time Patient Seen: 09:48 Interval history: Patient is 3 days post over-sew of perforated pre-pyloric gastric ulcer. Subjectively she has minimal abdominal pain no nausea vomiting she is tolerating a full liquid diet. She had a small bowel movement yesterday. Exam Vital Signs (past 8 hours): - 12/27/18 06:00 12/27/18 08:36 Temperature 97.8 F 97.7 F Pulse Rate 84 82 Respiratory Rate 16 18 Blood Pressure 159/101 H 160/88 H Pulse Oximetry 95 97 Oxygen Delivery Method Room Air Oxygen Flow Rate 0 Narrative Exam Narrative: Patient is afebrile Blood pressure is creeping up 160/88 Abdomen soft incision is healing beautifully Tyler-Prabhakar drain has 15 cc of s steve no bile. Objective Labs Result Diagrams: 12/26/18 05:30 12/24/18 05:13 Assessment & Plan Assessment & Plan narrative: Patient is recovering nicely following over-sew of a perforated ulcer. She maintains GI function. She is still on a Protonix drip. I started p.o. bismuth waiting for the H pylori report to be returned. Still no date on that. She continues to receive IV Zosyn. I removed the Tyler drain today. We will start her on oral analgesics. Start oral Protonix. Continue the IV Protonix infusion until it is completed. Her abdominal peritoneal cultures done at surgery are showing no growth of organisms. Quality VTE Deep Vein Thrombosis/Pulmonary Embolism Present on Admission: No
[2018-12-27] MEDS: DOCUSATE 100 MG CAPSULE PO ×2 (10:14→20:55)
[2018-12-27] MEDS: AMLODIPINE 2.5 MG TABLET PO (10:14)
[2018-12-27] MEDS: LORATADINE 10 MG TABLET PO (10:15)
--- NOTE | 2018-12-27 14:07 | PC.NURSE ---
Addendum entered by Mariana Rosas R.N. 12/27/18 14:10: Per instruction from Dr Torres this morning, the bag of IV Protonix that was hung this morning is to be allowed to finish, and she's got orders to switch to PO starting this evening. Original Note: Shift summary: Alert and oriented X3. Midline abdominal incision YELITZA and well-approximated with norman. No active bleeding or drainage. MD Torres dc'd the ALLISON drain this morning- dressing at old ALLISON site C/D/I. Abd soft, tender, mildly distended. BT+ (hypo), flatus+. No BM after suppository given this morning. Patient denies much pain, has only required Tylenol so far today and understands she could have stronger analgesic PRN. Tolerated soft diet at lunch without issue. Resting back in bed at this time, napping off and on. Able to make needs known and calls appropriately. Light in reach, bed alarm on.
[2018-12-27] MEDS: PANTOPRAZOLE 40 MG TABLET PO (20:55)
[2018-12-27] MEDS: OXYCODONE/ACETAMINOPHEN 5/325 TABLET 1 TAB PO (20:59)
[2018-12-28] VITALS (7 sets, daily range): BP systolic 146–158; BP diastolic 83–99; PULSE 68–86; RESP 16–19; TEMP 36.4–37.2; O2SAT 96–99
[2018-12-28] MEDS: PIPERACILLIN-TAZO 3.375 GM/50 ML FROZ.PIGGY IV ×4 (02:04→20:04)
[2018-12-28] MEDS: OXYCODONE/ACETAMINOPHEN 5/325 TABLET 1 TAB PO ×2 (06:19→21:08)
[2018-12-28] MEDS: PANTOPRAZOLE 40 MG TABLET PO ×2 (06:19→21:34)
[2018-12-28] MEDS: AMLODIPINE 2.5 MG TABLET PO (07:54)
[2018-12-28] MEDS: DOCUSATE 100 MG CAPSULE PO ×2 (07:55→21:04)
[2018-12-28] MEDS: BISMUTH SUBSALICYLATE 525 MG/30 ML SUSP PO ×2 (07:55→21:04)
[2018-12-28] MEDS: BISACODYL 10 MG SUPP PR ×2 (09:46→21:04)
--- NOTE | 2018-12-28 12:21 | PC.NURSE ---
Addendum entered by Rosaura Jaeger R.N. 12/28/18 14:13: MS- up to chair until after lunch, machinery mechanic in and standby assist as pt ambul hallway,gait steady, ret to bed. Addendum entered by Rosaura Jaeger R.N. 12/28/18 12:26: PAIN - discussed pain mgt, medications, timing, declines percocet or tylenol at this time, will req if needed. Original Note: AM NOTE - pt is alert, denies nausea, pain 4 on scale 0/10, bt are present, hypo, abd soft, earlier percocet provided adequate relief, after suppos this am, pt up to br and had small loose stool, sat back down chair for lunch and had to go back in br, flatus and again small loose brown stool particles.
[2018-12-28] MEDS: DEXTROSE 5%-0.45NS W/KCL 20MEQ 1,000 ML 50 MEQ IV (19:15)
--- NOTE | 2018-12-28 22:49 | PC.NURSE ---
Pt refused right wrist IV removal. Reports if she stays another day she will be willing to get a new IV placed.
--- NOTE | 2018-12-28 23:26 | PM.PN.1 ---
Subjective Date Patient Seen: 12/28/18 Time Patient Seen: 19:00 Interval history: Feeling quite well, much better than yesterday Had bowel moved Tolerate mechanical soft diet without difficulty Exam Vital Signs (past 8 hours): - 12/28/18 19:11 12/28/18 23:18 Temperature 98.9 F 97.7 F Pulse Rate 86 72 Respiratory Rate 18 18 Blood Pressure 146/83 H 158/99 H Pulse Oximetry 97 98 Oxygen Delivery Method Room Air Oxygen Flow Rate 0 Narrative Exam Narrative: Abdomen soft, minimally tender wound clean dry and intact Objective Labs Result Diagrams: 12/26/18 05:30 12/24/18 05:13 Assessment & Plan Assessment & Plan narrative: 68-year-old woman postop day 4. Status post modified David patch for perforated pre-pyloric ulcer in the setting of longstanding meloxicam use H pylori testing still pending Antibiotic day 5 Start fluconazole as well Likely discharge home tomorrow Quality VTE Deep Vein Thrombosis/Pulmonary Embolism Present on Admission: No
--- NOTE | 2018-12-29 00:28 | PC.NURSE ---
Addendum entered by Danelle Carrillo R.N. 12/29/18 06:12: Slept at intervals. Declines scheduled Tylenol this morning and declined offer of Oxycodone.. Addendum entered by Danelle Carrillo R.N. 12/29/18 01:36: States pain is pretty much the same at 3/10 and doesn't feel like the pain meds really do much for stomach pain. Declines offer of other pain medication. Original Note: Patient is alert and oriented. Breath sounds CTA with RA sat of 98%. HRR with BP of 158/99 which is consistent with previous readings. Denies nausea. BT present and states she had a BM yesterday. Midline/ALLISON incisions are well approximated with norman in midline and YELITZA; surrounding bruising noted. Abdomen is soft but mildly distended. Denies dysuria, frequency or urgency. Is up to bathroom with SBA; refusing walker. States she is still feeling a little weak as had hip surgery 6 weeks ago. Wearing bilateral calf SCD's. States pain at this time is minimal; knows she next pain med is available at 0100. Refusing IV restart stating she was told she would likely discharge today. Fall risk score is moderate; bed alarm is activated.
[2018-12-29] MEDS: FLUCONAZOLE 100 MG TABLET 200 MG PO ×2 (00:47→10:52)
[2018-12-29] MEDS: ACETAMINOPHEN 325 MG TABLET 975 MG PO (00:47)
[2018-12-29] MEDS: PIPERACILLIN-TAZO 3.375 GM/50 ML FROZ.PIGGY IV ×2 (01:46→08:56)
[2018-12-29 03:40] VITALS: BP 144/89; PULSE 68; RESP 17; TEMP 36.7; O2SAT 95
[2018-12-29] MEDS: HEPARIN 5,000 UNIT/ML VIAL 5000 UNIT SUBCUT (06:07)
[2018-12-29] MEDS: PANTOPRAZOLE 40 MG TABLET PO (06:07)
[2018-12-29 08:37] VITALS: BP 159/83; PULSE 74; RESP 19; TEMP 36.9; O2SAT 95
[2018-12-29 08:55] VITALS: O2SAT 98
[2018-12-29] MEDS: AMLODIPINE 2.5 MG TABLET PO (08:58)
[2018-12-29] MEDS: BISACODYL 10 MG SUPP PR (08:58)
[2018-12-29] MEDS: DOCUSATE 100 MG CAPSULE PO (08:58)
[2018-12-29 09:12] VITALS: O2SAT 98
[2018-12-29 11:32] LABS: Urea Breath Test >18YRS NOT DETECTED (NOT DETECTED)
[2018-12-29 12:00] VITALS: BP 144/91; PULSE 68; RESP 20; TEMP 37.2; O2SAT 98
--- NOTE | 2018-12-29 13:03 | PM.DS.1 ---
History of Present Illness Date Patient Seen: 12/29/18 Time Patient Seen: 13:03 Chief complaint: RUQ Pain Narrative: 68-year-old woman presents to the emergency department with abdominal pain was found to have a perforated viscus was taken emergently to the operating room where she was found to have a 1.5 cm perforation in the anterior pre-pyloric gastric wall. This was oversewn with a double layer of suture and then had a omental patch sutured over -modified David patch, NG tube was maintained. Patient recovered well. By postop her day for her in the the been removed has had her drain she was tolerating a soft diet. On postoperative day 5 her white blood cell count normalized. She was doing quite well and discharged home H pylori studies are pending at the time of discharge Of note patient was taking a significant amount of meloxicam at the time of her perforation in addition to 325 mg of daily aspirin for DVT prophylaxis following hip replacement Discharge Providers Date of admission: 12/24/18 08:43 Discharge Date: 12/29/18 Primary care physician: Maurice Reyes MD Discharge provider: Keriwn Luna Summary Discharge Diagnosis: Perforated anterior gastric ulcer Hospital Course: As above Status at Discharge Cognitive/behavioral status at discharge: oriented Functional status at discharge: independent ambulation Overall status at discharge: patient is progressing back to baseline Time Spent with Patient Less than 30 minutes Exam Vital Signs (past 8 hours): - 12/29/18 08:37 12/29/18 08:55 12/29/18 09:12 Temperature 98.5 F Pulse Rate 74 Respiratory Rate 19 Blood Pressure 159/83 H Pulse Oximetry 95 98 98 12/29/18 12:00 Temperature 99.0 F Pulse Rate 68 Respiratory Rate 20 Blood Pressure 144/91 H Pulse Oximetry 98 Oxygen Delivery Method Room Air Oxygen Flow Rate 0 Narrative Exam Narrative: Well-appearing woman no acute distress Breathing comfortably on room air Abdomen soft nontender and nondistended, wound is clean dry and intact Objective Labs Result Diagrams: 12/26/18 05:30 12/24/18 05:13 Labs: Laboratory Results - last 24 hr 12/25/18 10:43 H. pylori Breath Test Not detected Discharge Plan Discharge Plan Patient Disposition: Home Discharge Med Rec/Prescriptions Prescriptions: New fluconazole [Diflucan] 100 mg Tablet 200 mg PO DAILY Qty: 10 RF: 0 oxycodone 5 mg Tablet 5 mg PO Q4HR PRN (Reason: Pain, Moderate (4-6)) Qty: 10 RF: 0 pantoprazole 40 mg Tablet,Delayed Release (Dr/Ec) 40 mg PO 0700,2100 Qty: 60 RF: 10 amoxicillin-pot clavulanate 500-125 mg tablet 1 tab PO TID Qty: 15 RF: 0 acetaminophen 325 mg capsule 650 mg PO Q6H Qty: 30 RF: 0 Continued acyclovir 400 MG tablet 400 mg PO BID Qty: 0 RF: 0 cholecalciferol (vitamin D3) [Vitamin D3] 2,000 UNIT capsule 2,000 unit PO QDAY Qty: 0 RF: 0 omega 5-cyx-grv-fish oil [Fish Oil] 1,000 MG capsule 1,000 mg PO BID Qty: 0 RF: 0 simvastatin 40 mg tablet 40 mg PO DAILY RF: 0 Acetaminophen Extra Strength 500 mg 1,000 mg PO BID PRN (Reason: Pain, Mild) RF: 0 aspirin 325 mg Tablet 325 mg PO DAILY RF: 0 amlodipine 2.5 mg Tablet 2.5 mg PO DAILY RF: 0 docusate sodium [DOK] 100 mg Capsule 100 mg PO BID Qty: 60 RF: 0 oxycodone 5 mg Capsule 1 - 2 tab PO Q4-6H PRN (Reason: Pain) Qty: 0 RF: 0 Discontinued meloxicam 15 mg Tablet 15 mg PO DAILY RF: 0 Follow up/Referrals: Maurice Reyes MD [Primary Care Provider] - Kerwin Luna MD [Physician] - 01/13/19 11:15 am (Please check in to your post operative follow up appointment at 11:15 AM) Provider Discharge Instructions Diet comment: Soft diet Activity: All regular activities are okay, stay active and walk regular, however do not lift more than 15 lb for 6 weeks after surgery. Okay to shower. Okay to take a bath 2 weeks after surgery Skin/Wound/Dressing Care Dressing: No need for dressing over your wound Visit Report/Discharge Packet Instructions: Soft Diet, DI for Gastric Ulcer, How to Prevent Falls, DI for Postoperative Pain, How to Care for a Surgical Wound-[facility] Stand Alone Forms: Surgery Discharge Discharge Data Primary Care Provider: Maurice Reyes Attending Provider: Teodoro Torres Admit Date/Time: 12/24/18 08:43 Quality VTE Deep Vein Thrombosis/Pulmonary Embolism Present on Admission: No
--- NOTE | 2018-12-29 13:41 | CM.DPC ---
DCP Discharge Home Per Surgeon, pt's ALLISON drain discontinued two days ago and pt has been tolerating soft diet and no growth in cultures and pt is medically stable to d/c home with supportive spouse. Per RN, pt preference is home after lunch today and no concerns at this time. SW met bedside with pt and spouse and explained role and both confirmed they are agreeable with plan to d/c home today and no concerns. SW provided pt with her Medicare Rights and pt acknowledged understanding and signed her Medicare Message again. Plan: Patient to d/c home today via spouse POV and no SW needs at this time. CUATE Cyr
--- NOTE | 2018-12-29 14:15 | PC.NURSE ---
Addendum entered by Rosa Gutierrez R.N. 12/29/18 14:56: Pt left unit in no distress via wheelchair with [employer] TECHNICIAN and all belongings at 1441. Original Note: Day Shift- Discharge summary packet reviewed with pt. Prescriptions given to pt's to take to [facility] to have filled. No further voiced concerns or questions regarding discharge instructions. Aware to avoid constipation and high fibre foods. Dr. Daigle for soft diet, okay to have salads. Reviewed S/S of infection. States has all belongings. Pt's present to drive pt home.
== END 2018-12-29 14:41 | disposition home or self-care (01) | DRG 328 ==
LOC: ED 08:16 → AC 08:45
PROVIDERS: Emergency Medicine; Admitting Provider Surgery; Emergency Provider Emergency Medicine; Family Provider Orthopaedic Surgery; PCP Family Medicine; Visit Provider Surgery
PROC: 0DQ90ZZ Repair Duodenum, Open Approach (ICD-10-PCS; principal; 2018-12-24 09:00)
DX: K26.5 Chronic or unspecified duodenal ulcer with perforation (principal); I10 Essential (primary) hypertension; E78.5 Hyperlipidemia, unspecified
CPT/HCPCS: 36415; 43840; 49905; 74177; 76705; 80053; 81003; 83013; 83605; 83690; 85014; 85018; 85025; 87070; 87075; 87205; 96361; 96374; 96375; 99222; 99283; 99285; C9113; J0330; J1100; J1170; J1644; J1885; J2060; J2270; J2405; J2543; J2704; J3010; Q9967

== ENCOUNTER → 2019-11-24 15:11 | Outpatient (CLI) | payer MEDICARE, OTHER, SELFPAY ==
[2018-12-29 12:44] VITALS: BMI 23.8
--- NOTE | 2019-11-24 15:14 | DI.RAD.S_ITS ---
PROCEDURE: XR ELBOW LT MIN 3V INDICATIONS: LEFT ELBOW PAIN TECHNIQUE: 3 views of the elbow were acquired. COMPARISON: [facility], CR, XR ELBOW LT MIN 3V, 01/11/2018, 10:53. FINDINGS: Bones: AP view are noted in the ulnar olecranon. The radial head is absent which could be due to surgical resection or osteolysis. Severe left elbow osteoarthritis. Bones are osteopenic. Multiple small ossifications project over the elbow joint which may represent intra-articular loose bodies. Soft tissues: No elbow joint effusion. No suspicious soft tissue calcifications. IMPRESSION: 1. No acute osseous lesion. If symptoms and/or clinical suspicion for pathology persists, further assessment with advanced imaging (e.g. CT, MRI or bone scan) may be helpful. 2. Osteoarthritis. 3. Postsurgical changes. Dictated by: Jennifer Mendenhall MD, PhD on 11/24/2019 at 16:30 Approved by: Jennifer Mendenhall MD, PhD on 11/24/2019 at 16:37
== END ==
PROVIDERS: Family Provider Orthopaedic Surgery; PCP Family Medicine; Referring Provider Orthopaedic Surgery; Visit Provider Family Medicine
DX: M25.522 Pain in left elbow (principal); M19.022 Primary osteoarthritis, left elbow
CPT/HCPCS: 73080

== ENCOUNTER → 2020-04-13 13:51 | Outpatient (CLI) | payer MEDICARE, OTHER, SELFPAY ==
[2018-12-29 12:44] VITALS: BMI 23.8
--- NOTE | 2020-04-13 | DI.MG.S_ITS ---
BILATERAL DIGITAL SCREENING MAMMOGRAM 3D/2D WITH CAD: 04/13/2020 CLINICAL: Routine screening. Comparison is made to exams dated: 09/15/2018 mammogram - [facility], 08/07/2016 mammogram, 10/26/2014 mammogram, and 02/27/2010 mammogram - [facility]. The tissue of both breasts is extremely dense, which lowers the sensitivity of mammography. Current study was also evaluated with a Computer Aided Detection (CAD) system. No significant masses, calcifications, or other findings are seen in either breast. There has been no significant interval change. IMPRESSION: NEGATIVE There is no mammographic evidence of malignancy. A 1 year screening mammogram is recommended. This exam was interpreted at Station ID: [id number]. NOTE: For mammograms, a report in lay terms will be sent to the patient. Approximately 15% of breast malignancies will not be visualized mammographically. In the management of a palpable breast mass, a negative mammogram must not discourage biopsy of a clinically suspicious lesion. Electronically Signed By: Vinicius arredondo/jame:04/17/2020 10:08:19 letter sent: Normal Exam ACR BI-RADS Category 1: Negative [id number]
== END ==
PROVIDERS: Family Provider Orthopaedic Surgery; PCP Family Medicine; Referring Provider Family Medicine; Visit Provider Family Medicine
DX: Z12.31 Encounter for screening mammogram for malignant neoplasm of breast (principal)
CPT/HCPCS: 77063; 77067

== ENCOUNTER 2020-05-16 06:38 | Emergency (ER) | payer MEDICARE, OTHER, SELFPAY ==
[2018-12-29 12:44] VITALS: BMI 23.8
[2020-05-16] VITALS (12 sets, daily range): BP systolic 132–207; BP diastolic 67–98; PULSE 62–83; RESP 14–49; TEMP 36.4; O2SAT 88–100; BMI 24.0
[2020-05-16] MEDS: ONDANSETRON 4 MG/2 ML INJ (07:02)
[2020-05-16] MEDS: SODIUM CHLORIDE 0.9% 1,000 ML 1000 ML IV ×2 (07:02→08:23)
[2020-05-16 07:06] LABS: INR 0.9 (0.9-1.3); Prothrombin Time 10.8 SECONDS (10.1-12.7)
--- NOTE | 2020-05-16 07:07 | ED.NAVMDI ---
HPI - Nausea/Vomiting/Diarrhea General Chief complaint: Nausea/Vomiting/Diarrhea Stated complaint: nausea vomiting diarrhea Time Seen by Provider: 05/16/20 06:55 Source: patient Mode of arrival: Ambulatory Limitations: no limitations History of Present Illness HPI Narrative: Patient is a 69-year-old female with history of bowel perforation who presents with nausea vomiting and diarrhea which started last night around 10:00 p.m.. She currently is very confused and seems quite uncomfortable states that this is not normal. She has thrown up numerous times. She also reported some a blood in the stool. She was in her normal state of health yesterday according to her . MD complaint: nausea, vomiting, diarrhea and abdominal pain Onset (ago): hour(s) Related Data Home Medications Medication Instructions Recorded Confirmed acyclovir 400 mg PO BID #0 06/30/17 01/13/19 cholecalciferol (vitamin D3) 2,000 unit PO QDAY #0 06/30/17 01/13/19 [Vitamin D3] omega 4-lvy-ajf-fish oil [Fish Oil] 1,000 mg PO BID #0 06/30/17 01/13/19 amlodipine 2.5 mg PO DAILY 11/02/18 01/13/19 Acetaminophen Extra Strength 1,000 mg PO BID PRN 12/24/18 01/13/19 aspirin 325 mg PO DAILY 12/24/18 01/13/19 simvastatin 40 mg PO DAILY 12/24/18 01/13/19 Previous Rx's Medication Instructions Recorded docusate sodium [DOK] 100 mg PO BID #60 cap 11/12/18 oxycodone 1 - 2 tab PO Q4-6H PRN #0 cap 11/12/18 acetaminophen 650 mg PO Q6H #30 cap 12/29/18 amoxicillin-pot clavulanate 1 tab PO TID #15 tab 12/29/18 fluconazole [Diflucan] 200 mg PO DAILY #10 tab 12/29/18 oxycodone 5 mg PO Q4HR PRN #10 tab 12/29/18 pantoprazole 40 mg PO 0700,2100 #60 tab 12/29/18 ondansetron 4 mg PO Q8H PRN #10 tab 05/16/20 Allergies Allergy/AdvReac Type Severity Reaction Status Date / Time No Known Allergies Allergy Verified 01/13/19 11:27 Review of Systems Review of Systems Narrative: GENERAL: Denies chills, fatigue, malaise, fever, sweats, travel HEENT: Denies sinus pain, ear pain, sore throat, difficulty swallowing, neck pain RESPIRATORY: Denies dyspnea, cough, wheezing, hemoptysis, sputum. CARDIOVASCULAR: Denies chest pain, palpitations, orthopnea, edema GASTROINTESTINAL: See HPI : Denies dysuria, frequency, incontinence, hematuria, urinary retention, flank pain. MUSCULOSKELETAL: Denies weakness, joint pain, or bony pain SKIN: No rash, no erythema, no pruritus NEUROLOGIC: Denies weakness, dizziness, headache, numbness, change in speech, confusion PSYCHIATRIC: No concerning psychosocial issues. 12 point review of systems is negative except for those stated above and HPI Patient History Medical History (Updated 05/16/20 @ 10:29 by Ayse Butterfield DO) Back pain Cataracts, bilateral Deaf Depression HTN (hypertension) Hyperlipidemia Osteoarthritis Pneumonia Seasonal allergies Skin cancer of chest, excluding breast Surgical History History of colonoscopy Hx of elbow surgery (01/11/18) Hx of lumbar discectomy (~2006) Hx of tonsillectomy Social History household members: spouse Smoking Status: Current every day smoker alcohol intake: current Smoking Status: Current every day smoker alcohol intake frequency: a few times a month Substance Use Type: marijuana Exam Initial Vital Signs Initial Vital Signs: Vital Signs Temperature 97.6 F 05/16/20 06:45 Pulse Rate 69 05/16/20 06:45 Respiratory Rate 18 05/16/20 06:45 Blood Pressure 207/98 H 05/16/20 06:45 Pulse Oximetry 99 05/16/20 06:45 GENERAL: Patient appears very uncomfortable confused HEENT: Head atraumatic,EOMI, pupils reactive, face symmetric, moist mucous membranes CARDIOVASCULAR: Regular rate and rhythm without murmurs, rubs or gallops. RESPIRATORY: Breath sounds equal bilaterally, no wheezes rales or rhonchi. ABDOMEN: Soft, nontender. Vertical scar noted. Normoactive bowel sounds all 4 quadrants. No guarding or rebound. : No CVA tenderness EXTREMITIES: Normal range of motion, no clubbing or edema. Neurovascularly intact NEUROLOGICAL: Alert, not oriented to place or time, moving all extremities SKIN: Warm, dry, no laceration, no petechiae, no rashes or lesions. Course Orders Ordered: ED Orders 05/16/20 06:51 Complete Blood Count AUTO DIFF Stat Comprehensive Metabolic Panel Stat Lactate (Lactic Acid) Stat Lipase Stat Partial Thromboplastin Time Stat Prothrombin Time INR Stat Troponin & CK Cardiac Panel Stat 05/16/20 06:57 EKG-12 Lead Stat 05/16/20 07:41 CT head/brain wo con Stat 05/16/20 07:56 CT abdomen pelvis w con Stat 05/16/20 08:20 Blood Culture Stat COVID19 Stat Discontinued Medications Sodium Chloride (Normal Saline 0.9%) 1,000 mls @ 1,000 mls/hr IV BOLUS ONE Stop: 05/16/20 08:00 Last Infusion: 05/16/20 08:45 Dose: 0 mls/hr Documented by: Admin: 05/16/20 07:02 Dose: 1,000 mls/hr Documented by: NOAM Sodium Chloride (Normal Saline 0.9%) 1,000 mls @ 1,000 mls/hr IV BOLUS ONE Stop: 05/16/20 08:36 Last Infusion: 05/16/20 10:25 Dose: 0 mls/hr Documented by: Admin: 05/16/20 08:23 Dose: 1,000 mls/hr Documented by: YU Lorazepam (Lorazepam 2 Mg/Ml Inj) 0.5 mg IV NOW ONE Stop: 05/16/20 07:42 Last Admin: 05/16/20 07:51 Dose: 0.5 mg Documented by: SHAQ Morphine Sulfate (Morphine 2 Mg/Ml Inj) 2 mg IV NOW ONE Stop: 05/16/20 07:13 Last Admin: 05/16/20 07:27 Dose: 2 mg Documented by: YU Ondansetron HCl (Ondansetron 4 Mg/2 Ml Inj) 4 mg IV NOW ONE Stop: 05/16/20 07:42 Last Admin: 05/16/20 07:53 Dose: 4 mg Documented by: SHAQ Pantoprazole Sodium (Pantoprazole 40 Mg Vial) 40 mg IV NOW ONE Stop: 05/16/20 07:13 Last Admin: 05/16/20 07:24 Dose: 40 mg Documented by: YU Vital Signs Vital signs: Vital Signs - 8 hr 05/16/20 06:45 05/16/20 06:51 05/16/20 07:00 Temperature 97.6 F Pulse Rate 69 62 75 Respiratory Rate 18 31 H 42 H Blood Pressure 207/98 H 180/90 H Pulse Oximetry 99 99 100 05/16/20 07:30 05/16/20 07:31 05/16/20 08:13 Temperature Pulse Rate 81 79 80 Respiratory Rate 23 20 14 Blood Pressure 180/90 H 175/84 H Pulse Oximetry 100 100 98 05/16/20 08:30 05/16/20 08:35 05/16/20 09:00 Temperature Pulse Rate 76 80 76 Respiratory Rate 49 H 27 H 42 H Blood Pressure 156/79 H 132/72 Pulse Oximetry 88 L 100 96 05/16/20 09:30 05/16/20 10:00 05/16/20 10:30 Temperature Pulse Rate 79 80 83 Respiratory Rate 37 H 34 H 30 H Blood Pressure 135/71 136/67 134/74 Pulse Oximetry 93 94 94 MDM - Nausea/Vomiting/Diarrhea Lab Data Attestation: I reviewed the patient's lab results. Result diagrams: 05/16/20 06:51 05/16/20 06:51 Labs: Lab Results 05/16/20 05/16/20 05/16/20 Range/Units 06:51 06:51 06:51 WBC 10.8 (4.5-11.0) X10^3/uL RBC 5.20 (4.0-5.2) X10^6/uL Hgb 16.3 H (12.0-16.0) g/dL Hct 48.3 H (36-46) % MCV 92.9 (80-100) fL MCH 31.3 (26-34) PG MCHC 33.7 (30-36) % RDW 12.2 (11.6-14.8) % Plt Count 258 (150-400) X10^3/uL Neut % (Auto) 80.6 H (50-75) % Lymph % (Auto) 14.2 L (25-40) % [place] % (Auto) 4.5 (3-14) % Eos % (Auto) 0.2 L (2-4) % Baso % (Auto) 0.5 (0-2) % Neut # (Auto) 8800 H (2341-1772) /uL Lymph # (Auto) 1500 (7578-2693) /uL [place] # (Auto) 500 (0-900) /uL Eos # (Auto) 0 (0-450) /uL Baso # (Auto) 0 (0-100) /uL PT 10.8 (10.1-12.7) SECONDS INR 0.9 (0.9-1.3) APTT 30 (26.4-36.2) SECONDS Sodium 137 (137-145) mmol/L Potassium 4.2 (3.4-5.1) mmol/L Chloride 105 (98-107) mmol/L Carbon Dioxide 22 (22-32) mmol/L BUN 16 (7-17) mg/dL Creatinine 0.71 (0.52-1.04) mg/dL Estimated GFR > 60.0 (>60) mL/min BUN/Creatinine Ratio 22.5 H (6-22) Glucose 181 H (80-110) mg/dL Lactate (0.7-2.1) mmol/L Calcium 10.0 (8.4-10.2) mg/dL Total Bilirubin 0.6 (0.2-1.3) mg/dL AST 36 (14-36) IU/L ALT 26 (<35) IU/L Alkaline Phosphatase 117 (38-126) U/L Total Creatine Kinase (30-135) U/L CK-MB (CK-2) (<2.37) ng/mL CK-MB (CK-2) Rel Index (1.5-5.0) % Troponin I (0.01-0.034) ng/mL Total Protein 8.1 (6.3-8.2) g/dL Albumin 4.7 (3.5-5.0) g/dL Globulin 3.4 (1.7-4.1) g/dL Albumin/Globulin Ratio 1.4 (1.0-2.8) Lipase 141 (23-300) U/L COVID-19 PCR (Negative) 05/16/20 05/16/20 05/16/20 Range/Units 06:51 06:51 08:20 WBC (4.5-11.0) X10^3/uL RBC (4.0-5.2) X10^6/uL Hgb (12.0-16.0) g/dL Hct (36-46) % MCV (80-100) fL MCH (26-34) PG MCHC (30-36) % RDW (11.6-14.8) % Plt Count (150-400) X10^3/uL Neut % (Auto) (50-75) % Lymph % (Auto) (25-40) % [place] % (Auto) (3-14) % Eos % (Auto) (2-4) % Baso % (Auto) (0-2) % Neut # (Auto) (2441-7594) /uL Lymph # (Auto) (8072-8604) /uL [place] # (Auto) (0-900) /uL Eos # (Auto) (0-450) /uL Baso # (Auto) (0-100) /uL PT (10.1-12.7) SECONDS INR (0.9-1.3) APTT (26.4-36.2) SECONDS Sodium (137-145) mmol/L Potassium (3.4-5.1) mmol/L Chloride (98-107) mmol/L Carbon Dioxide (22-32) mmol/L BUN (7-17) mg/dL Creatinine (0.52-1.04) mg/dL Estimated GFR (>60) mL/min BUN/Creatinine Ratio (6-22) Glucose (80-110) mg/dL Lactate 3.0 H (0.7-2.1) mmol/L Calcium (8.4-10.2) mg/dL Total Bilirubin (0.2-1.3) mg/dL AST (14-36) IU/L ALT (<35) IU/L Alkaline Phosphatase (38-126) U/L Total Creatine Kinase 150 H (30-135) U/L CK-MB (CK-2) 0.96 (<2.37) ng/mL CK-MB (CK-2) Rel Index 0.6 L (1.5-5.0) % Troponin I < 0.012 (0.01-0.034) ng/mL Total Protein (6.3-8.2) g/dL Albumin (3.5-5.0) g/dL Globulin (1.7-4.1) g/dL Albumin/Globulin Ratio (1.0-2.8) Lipase (23-300) U/L COVID-19 PCR Negative (Negative) 05/16/20 Range/Units 09:30 WBC (4.5-11.0) X10^3/uL RBC (4.0-5.2) X10^6/uL Hgb (12.0-16.0) g/dL Hct (36-46) % MCV (80-100) fL MCH (26-34) PG MCHC (30-36) % RDW (11.6-14.8) % Plt Count (150-400) X10^3/uL Neut % (Auto) (50-75) % Lymph % (Auto) (25-40) % [place] % (Auto) (3-14) % Eos % (Auto) (2-4) % Baso % (Auto) (0-2) % Neut # (Auto) (7787-7865) /uL Lymph # (Auto) (9543-4691) /uL [place] # (Auto) (0-900) /uL Eos # (Auto) (0-450) /uL Baso # (Auto) (0-100) /uL PT (10.1-12.7) SECONDS INR (0.9-1.3) APTT (26.4-36.2) SECONDS Sodium (137-145) mmol/L Potassium (3.4-5.1) mmol/L Chloride (98-107) mmol/L Carbon Dioxide (22-32) mmol/L BUN (7-17) mg/dL Creatinine (0.52-1.04) mg/dL Estimated GFR (>60) mL/min BUN/Creatinine Ratio (6-22) Glucose (80-110) mg/dL Lactate 1.1 (0.7-2.1) mmol/L Calcium (8.4-10.2) mg/dL Total Bilirubin (0.2-1.3) mg/dL AST (14-36) IU/L ALT (<35) IU/L Alkaline Phosphatase (38-126) U/L Total Creatine Kinase (30-135) U/L CK-MB (CK-2) (<2.37) ng/mL CK-MB (CK-2) Rel Index (1.5-5.0) % Troponin I (0.01-0.034) ng/mL Total Protein (6.3-8.2) g/dL Albumin (3.5-5.0) g/dL Globulin (1.7-4.1) g/dL Albumin/Globulin Ratio (1.0-2.8) Lipase (23-300) U/L COVID-19 PCR (Negative) Urine Dip Bedside Urine Glucose Negative Bedside Urine Bilirubin - Negative Bedside Urine Ketone +/- 5 Urine Specific [place] 1.015 Bedside Urine Occult Blood - Negative Bedside Urine pH 7.5 Bedside Urine Protein - Negative Bedside Urine Urobilinogen - Negative Bedside Urine Nitrite - Negative Bedside Urine Leukocytes - Negative Esterase Imaging Data CT scan - head: Radiologist's Impression: PROCEDURE: CT HEAD/BRAIN WO CON INDICATIONS: confusion TECHNIQUE: Noncontrast 4.5 mm thick angled axial sections acquired from the foramen magnum to the vertex, with coronal and sagittal reformats. For radiation dose reduction, the following was used: automated exposure control, adjustment of mA and/or kV according to patient size. COMPARISON: None. FINDINGS: Image quality: Excellent. CSF spaces: Basal cisterns are patent. No extra-axial fluid collections. The ventricles are symmetric in size and shape. Brain: No intracranial bleeds or masses. There is mild cerebral volume loss for age, with resultant ventricular and sulcal prominence. There are mild periventricular and deep white matter chronic small vessel ischemic changes. There is intracranial internal carotid artery atherosclerosis. Skull and face: Calvarium and visualized facial bones appear intact, without suspicious lesions. Sinuses: There is a mucous retention cyst in the left maxillary sinus. The mastoids are clear. IMPRESSION: 1. No acute intracranial abnormalities. 2. Cerebral volume loss and chronic microvascular ischemic changes. Dictated by: Margie Meyer M.D. on 05/16/2020 at 8:17 CT scan - abdomen/pelvis: Radiologist's Impression: PROCEDURE: CT ABDOMEN PELVIS W CON INDICATIONS: pain vomiting TECHNIQUE: After the administration of intravenous contrast, 5 mm thick sections acquired from the diaphragm to the symphysis. 5 mm coronal and sagittal reformats were acquired. For radiation dose reduction, the following was used: automated exposure control, adjustment of mA and/or kV according to patient size. COMPARISON: [facility], CT, CT ABDOMEN PELVIS W CON, 12/24/2018, 7:37. FINDINGS: Image quality: Excellent. ABDOMEN: Lung bases: Lung bases are clear. Heart size is normal. Trace pericardial effusion. Small hiatal hernia. Solid organs: Liver is normal in size and enhancement. Gallbladder contains small gallstones. Biliary system is non dilated. Pancreas enhances normally. Spleen is normal in size and enhancement. No adrenal nodules. Kidneys demonstrate normal size and enhancement, without hydronephrosis. Peritoneum and bowel: There is gastric antral thickening and thickening of duodenum, likely secondary to peptic ulcer disease or gastritis/duodenitis. There is mild diffuse colonic wall thickening. Bowel loops demonstrate normal caliber. No free fluid or air. Nodes and vessels: No retroperitoneal or mesenteric adenopathy by size criteria. Aorta and inferior vena cava are normal in size. Moderate atherosclerosis. Miscellaneous: No ventral hernias. PELVIS: Genitourinary: Bladder wall thickness is normal. Miscellaneous: No inguinal hernias or adenopathy. Bones: No suspicious bony lesions. No vertebral body compression fractures. Scoliosis and degenerative changes in lumbar spine. Right hip arthroplasty. Moderate to severe left hip joint degeneration. IMPRESSION: 1. Gastric antral thickening and thickening of duodenum suggesting peptic ulcer disease or gastritis/duodenitis. No findings to suggest perforated viscus. 2. Mild diffuse colonic wall thickening suggesting colitis. Differential diagnosis include infectious colitis versus inflammatory bowel disease. 3. Cholelithiasis. No CT findings to suggest acute cholecystitis. 4. Small hiatal hernia. Dictated by: Margie Meyer M.D. on 05/16/2020 at 8:18 Approved by: Margie Meyer M.D. on 05/16/2020 at 8:28 ECG Data Attestation: I personally reviewed and interpreted this ECG as follows: Interpretation: Normal sinus rhythm rate 74 p.r. interval 194 QRS [address] changes or T-wave inversions MDM Narrative Medical decision making narrative: Patient extremely confused uncomfortable she denies having any pain her abdomen is soft. Concern for possible intracranial etiology. Fortunately had a head CT is negative patient did get Ativan and morphine to help calm her. Lactate is noted to be elevated at 3.0 possible infectious versus anxiety. Patient is re-evaluated she seems to be more with it she does not remember everything but does state that she was nauseous and vomiting and had blood streaking stools but no to levels full of blood. She is having very minimal abdominal pain the right side. Overall feeling much better. Continue to monitor and repeat lactate Patient remains stable, her mental status is much improved after Ativan. Lactate also improved after Ativan and fluids. No significant leukocytosis she is afebrile came on suddenly signs and symptoms are consistent with a gastroenteritis. Of head CT abdominal CT are negative at this time I discussed with and patient discharging home which they are agreeable to do so by we went over warning signs and when to return to the ED. I discussed all findings with the patient and , Education has been performed regarding treatment plan, diagnosis, warning signs and symptoms and all concerns have been addressed. Verbally agree with and understood all of the above. Discharge Plan Departure Patient Disposition: Home Clinical Impression: Gastroenteritis Instructions: DI for Viral Gastroenteritis -- Adult Activity Restrictions/Additional Instructions: *You have been diagnosed with gastroenteritis *What to do: Increase fluid intake as tolerated. Recommend Gatorade or Gatorade like substance *Continue to take medications as directed Zofran 4 mg every 8 hours if needed for nausea or vomiting *Follow up with your primary care provider in 2-3 days *Return to ER if you should have increased confusion, abdominal pain, persistent vomiting, multiple bloody stools or any new, worsening or concerning symptoms Prescriptions: New ondansetron 4 mg tablet,disintegrating 4 mg PO Q8H PRN (Reason: nausea and vomiting) Qty: 10 RF: 0 No Action acyclovir 400 MG tablet 400 mg PO BID Qty: 0 RF: 0 cholecalciferol (vitamin D3) [Vitamin D3] 2,000 UNIT capsule 2,000 unit PO QDAY Qty: 0 RF: 0 omega 9-amn-pcf-fish oil [Fish Oil] 1,000 MG capsule 1,000 mg PO BID Qty: 0 RF: 0 simvastatin 40 mg tablet 40 mg PO DAILY RF: 0 Acetaminophen Extra Strength 500 mg 1,000 mg PO BID PRN (Reason: Pain, Mild) RF: 0 aspirin 325 mg Tablet 325 mg PO DAILY RF: 0 fluconazole [Diflucan] 100 mg Tablet 200 mg PO DAILY Qty: 10 RF: 0 oxycodone 5 mg Tablet 5 mg PO Q4HR PRN (Reason: Pain, Moderate (4-6)) Qty: 10 RF: 0 pantoprazole 40 mg Tablet,Delayed Release (Dr/Ec) 40 mg PO 0700,2100 Qty: 60 RF: 10 amoxicillin-pot clavulanate 500-125 mg tablet 1 tab PO TID Qty: 15 RF: 0 acetaminophen 325 mg capsule 650 mg PO Q6H Qty: 30 RF: 0 amlodipine 2.5 mg Tablet 2.5 mg PO DAILY RF: 0 docusate sodium [DOK] 100 mg Capsule 100 mg PO BID Qty: 60 RF: 0 oxycodone 5 mg Capsule 1 - 2 tab PO Q4-6H PRN (Reason: Pain) Qty: 0 RF: 0 Referrals: Maurice Reyes MD [Primary Care Provider] -
[2020-05-16 07:09] LABS: Add Manual Diff / Slide Review NO; Basophils Absolute Auto 0 /uL (0-100); Basophils Percent Auto 0.5 % (0-2); Eosinophils Absolute Auto 0 /uL (0-450); Eosinophils Percent Auto 0.2 % (2-4); Hematocrit 48.3 % (36-46); Hemoglobin 16.3 g/dL (12.0-16.0); Lymphocytes Absolute Auto 1500 /uL (1100-4500); Lymphocytes Percent Auto 14.2 % (25-40); Mean Corpuscular HGB Conc 33.7 % (30-36); Mean Corpuscular Hemoglobin 31.3 PG (26-34); Mean Corpuscular Volume 92.9 fL (80-100); Monocytes Absolute Auto 500 /uL (0-900); Monocytes Percent Auto 4.5 % (3-14); Neutrophils Absolute Auto 8800 /uL (1500-7000); Neutrophils Percent Auto 80.6 % (50-75); PTT Partial Thromboplastin Tim 30 SECONDS (26.4-36.2); Platelet Count 258 X10^3/uL (150-400); Red Cell Distribution Width 12.2 % (11.6-14.8); White Blood Cell Count 10.8 X10^3/uL (4.5-11.0)
[2020-05-16 07:10] LABS: Alanine Aminotransferase 26 IU/L (<35); Albumin 4.7 g/dL (3.5-5.0); Albumin Globulin Ratio 1.4 (1.0-2.8); Alkaline Phosphatase 117 U/L (38-126); Aspartate Aminotransferase 36 IU/L (14-36); BUN Creatinine Ratio 22.5 (6-22); Bilirubin Total 0.6 mg/dL (0.2-1.3); Blood Urea Nitrogen 16 mg/dL (7-17); Carbon Dioxide 22 mmol/L (22-32); Chloride 105 mmol/L (98-107); Estimated Glomerular Filt Rate > 60.0 mL/min (>60); Globulin 3.4 g/dL (1.7-4.1); Glucose 181 mg/dL (80-110); HEMOLYSIS < 15 (0-50); Lipase 141 U/L (23-300); Potassium 4.2 mmol/L (3.4-5.1); Sodium 137 mmol/L (137-145); Total Protein 8.1 g/dL (6.3-8.2)
[2020-05-16] MEDS: PANTOPRAZOLE 40 MG VIAL IV (07:24)
[2020-05-16 07:26] LABS: Creatine Kinase 150 U/L (30-135)
[2020-05-16] MEDS: MORPHINE 2 MG/ML INJ IV (07:27)
--- NOTE | 2020-05-16 07:31 | PC.NURSE ---
patient restless i just feel terrible, something isn't right. I feel like I am going to throw up
[2020-05-16 07:38] LABS: Troponin I < 0.012 ng/mL (0.01-0.034)
[2020-05-16 07:41] LABS: CKMB % Relative Index 0.6 % (1.5-5.0); Creatine Kinase MB 0.96 ng/mL (<2.37)
--- NOTE | 2020-05-16 07:41 | DI.CT.S_ITS ---
PROCEDURE: CT HEAD/BRAIN WO CON INDICATIONS: confusion TECHNIQUE: Noncontrast 4.5 mm thick angled axial sections acquired from the foramen magnum to the vertex, with coronal and sagittal reformats. For radiation dose reduction, the following was used: automated exposure control, adjustment of mA and/or kV according to patient size. COMPARISON: None. FINDINGS: Image quality: Excellent. CSF spaces: Basal cisterns are patent. No extra-axial fluid collections. The ventricles are symmetric in size and shape. Brain: No intracranial bleeds or masses. There is mild cerebral volume loss for age, with resultant ventricular and sulcal prominence. There are mild periventricular and deep white matter chronic small vessel ischemic changes. There is intracranial internal carotid artery atherosclerosis. Skull and face: Calvarium and visualized facial bones appear intact, without suspicious lesions. Sinuses: There is a mucous retention cyst in the left maxillary sinus. The mastoids are clear. IMPRESSION: 1. No acute intracranial abnormalities. 2. Cerebral volume loss and chronic microvascular ischemic changes. Dictated by: Margie Meyer M.D. on 05/16/2020 at 8:17 Approved by: Margie Meyer M.D. on 05/16/2020 at 8:18
[2020-05-16] MEDS: LORazepam 2 MG/ML INJ 0.5 MG IV (07:51)
[2020-05-16] MEDS: ONDANSETRON 4 MG/2 ML INJ IV (07:53)
--- NOTE | 2020-05-16 07:56 | DI.CT.S_ITS ---
PROCEDURE: CT ABDOMEN PELVIS W CON INDICATIONS: pain vomiting TECHNIQUE: After the administration of intravenous contrast, 5 mm thick sections acquired from the diaphragm to the symphysis. 5 mm coronal and sagittal reformats were acquired. For radiation dose reduction, the following was used: automated exposure control, adjustment of mA and/or kV according to patient size. COMPARISON: [facility], CT, CT ABDOMEN PELVIS W CON, 12/24/2018, 7:37. FINDINGS: Image quality: Excellent. ABDOMEN: Lung bases: Lung bases are clear. Heart size is normal. Trace pericardial effusion. Small hiatal hernia. Solid organs: Liver is normal in size and enhancement. Gallbladder contains small gallstones. Biliary system is non dilated. Pancreas enhances normally. Spleen is normal in size and enhancement. No adrenal nodules. Kidneys demonstrate normal size and enhancement, without hydronephrosis. Peritoneum and bowel: There is gastric antral thickening and thickening of duodenum, likely secondary to peptic ulcer disease or gastritis/duodenitis. There is mild diffuse colonic wall thickening. Bowel loops demonstrate normal caliber. No free fluid or air. Nodes and vessels: No retroperitoneal or mesenteric adenopathy by size criteria. Aorta and inferior vena cava are normal in size. Moderate atherosclerosis. Miscellaneous: No ventral hernias. PELVIS: Genitourinary: Bladder wall thickness is normal. Miscellaneous: No inguinal hernias or adenopathy. Bones: No suspicious bony lesions. No vertebral body compression fractures. Scoliosis and degenerative changes in lumbar spine. Right hip arthroplasty. Moderate to severe left hip joint degeneration. IMPRESSION: 1. Gastric antral thickening and thickening of duodenum suggesting peptic ulcer disease or gastritis/duodenitis. No findings to suggest perforated viscus. 2. Mild diffuse colonic wall thickening suggesting colitis. Differential diagnosis include infectious colitis versus inflammatory bowel disease. 3. Cholelithiasis. No CT findings to suggest acute cholecystitis. 4. Small hiatal hernia. Dictated by: Margie Meyer M.D. on 05/16/2020 at 8:18 Approved by: Margei Meyer M.D. on 05/16/2020 at 8:28
[2020-05-16 09:01] LABS: COVID19 -Nasal RAPID Negative (Negative)
[2020-05-16 09:17] LABS: Reflexed Lactate in 2 Hours Y
[2020-05-16 10:16] LABS: Lactate 2HR (Lactic Acid Rflx) 1.1 mmol/L (0.7-2.1)
== END 2020-05-16 10:42 | disposition home or self-care (01) ==
PROVIDERS: Emergency Provider Emergency Medicine; Family Provider Orthopaedic Surgery; PCP Family Medicine
DX: K52.9 Noninfective gastroenteritis and colitis, unspecified (principal); R11.2 Nausea with vomiting, unspecified; R10.9 Unspecified abdominal pain; R41.0 Disorientation, unspecified; I10 Essential (primary) hypertension; E78.5 Hyperlipidemia, unspecified; Z20.828 Contact with and (suspected) exposure to other viral communicable diseases; K44.9 Diaphragmatic hernia without obstruction or gangrene
CPT/HCPCS: 36415; 70450; 74177; 80053; 81003; 82550; 82553; 83605; 83690; 84484; 85025; 85610; 85730; 87040; 87635; 93005; 96361; 96374; 96375; 99284; C9113; J2060; J2270; J2405; Q9967

== ENCOUNTER 2020-07-20 14:46 | Emergency (ER) | payer MEDICARE, OTHER, SELFPAY ==
[2018-12-29 12:44] VITALS: BMI 23.8
[2020-07-20] VITALS (10 sets, daily range): BP systolic 150–190; BP diastolic 72–85; PULSE 52–74; RESP 16–21; TEMP 36.5; O2SAT 96–100
[2020-07-20 15:10] LABS: Add Manual Diff / Slide Review NO; Basophils Absolute Auto 0 /uL (0-100); Basophils Percent Auto 1.1 % (0-2); Eosinophils Absolute Auto 100 /uL (0-450); Eosinophils Percent Auto 1.5 % (2-4); Hematocrit 49.4 % (36-46); Hemoglobin 16.6 g/dL (12.0-16.0); Lymphocytes Absolute Auto 1200 /uL (1100-4500); Lymphocytes Percent Auto 26.7 % (25-40); Mean Corpuscular HGB Conc 33.7 % (30-36); Mean Corpuscular Hemoglobin 30.8 PG (26-34); Mean Corpuscular Volume 91.3 fL (80-100); Monocytes Absolute Auto 500 /uL (0-900); Monocytes Percent Auto 11.9 % (3-14); Neutrophils Absolute Auto 2600 /uL (1500-7000); Neutrophils Percent Auto 58.8 % (50-75); Platelet Count 214 X10^3/uL (150-400); Red Blood Cell Count 5.41 X10^6/uL (4.0-5.2); Red Cell Distribution Width 12.4 % (11.6-14.8); White Blood Cell Count 4.4 X10^3/uL (4.5-11.0)
[2020-07-20 15:13] LABS: Prothrombin Time 11.1 SECONDS (10.1-12.7)
[2020-07-20 15:15] LABS: PTT Partial Thromboplastin Tim 33 SECONDS (26.4-36.2)
[2020-07-20 15:18] LABS: Alanine Aminotransferase 26 IU/L (<35); Albumin 4.7 g/dL (3.5-5.0); Albumin Globulin Ratio 1.5 (1.0-2.8); Alkaline Phosphatase 85 U/L (38-126); Aspartate Aminotransferase 35 IU/L (14-36); BUN Creatinine Ratio 23.3 (6-22); Bilirubin Total 0.4 mg/dL (0.2-1.3); Blood Urea Nitrogen 17 mg/dL (7-17); Carbon Dioxide 32 mmol/L (22-32); Chloride 100 mmol/L (98-107); Estimated Glomerular Filt Rate > 60.0 mL/min (>60); Globulin 3.2 g/dL (1.7-4.1); Glucose 100 mg/dL (80-110); HEMOLYSIS 17 (0-50); Lipase 173 U/L (23-300); Potassium 4.3 mmol/L (3.4-5.1); Sodium 137 mmol/L (137-145); Total Protein 7.9 g/dL (6.3-8.2)
--- NOTE | 2020-07-20 15:58 | ED.GENADULT ---
HPI - General Adult General Chief complaint: Abdominal Pain Stated complaint: stomach ache Time Seen by Provider: 07/20/20 15:36 Source: patient Mode of arrival: Ambulatory Limitations: no limitations History of Present Illness HPI narrative: 70-year-old female here for evaluation of epigastric and right upper quadrant abdominal pain. She states she has had pain like this in the past although was several weeks/months ago. She was placed on a proton pump inhibitor and was told that everything was okay. The symptoms did seem to improve however the past couple days she has had a return of symptoms. Does not seem to be associated with eating. Does cause her discomfort taking a deep breath. No associated with bowel changes. Has not had any diarrhea. No urinary symptoms. She still has her gallbladder. Related Data Home Medications Medication Instructions Recorded Confirmed acyclovir 400 mg PO BID #0 06/30/17 01/13/19 cholecalciferol (vitamin D3) 2,000 unit PO QDAY #0 06/30/17 01/13/19 [Vitamin D3] omega 6-axi-kax-fish oil [Fish Oil] 1,000 mg PO BID #0 06/30/17 01/13/19 amlodipine 2.5 mg PO DAILY 11/02/18 01/13/19 Acetaminophen Extra Strength 1,000 mg PO BID PRN 12/24/18 01/13/19 aspirin 325 mg PO DAILY 12/24/18 01/13/19 simvastatin 40 mg PO DAILY 12/24/18 01/13/19 Previous Rx's Medication Instructions Recorded docusate sodium [DOK] 100 mg PO BID #60 cap 11/12/18 oxycodone 1 - 2 tab PO Q4-6H PRN #0 cap 11/12/18 acetaminophen 650 mg PO Q6H #30 cap 12/29/18 amoxicillin-pot clavulanate 1 tab PO TID #15 tab 12/29/18 fluconazole [Diflucan] 200 mg PO DAILY #10 tab 12/29/18 oxycodone 5 mg PO Q4HR PRN #10 tab 12/29/18 pantoprazole 40 mg PO 0700,2100 #60 tab 12/29/18 ondansetron 4 mg PO Q8H PRN #10 tab 05/16/20 Allergies Allergy/AdvReac Type Severity Reaction Status Date / Time No Known Allergies Allergy Verified 01/13/19 11:27 Review of Systems Constitutional Constitutional: Denies fatigue and Denies headache(s) ENT Ears, Nose, Mouth, and Throat: Denies headache(s) Cardiovascular Cardiovascular: Denies chest pain and Denies dyspnea Respiratory Respiratory: Denies dyspnea Gastrointestinal Gastrointestinal: Reports abdominal pain, Denies nausea and Denies vomiting Genitourinary Genitourinary: Denies dysuria Genitourinary: Denies dysuria Musculoskeletal Musculoskeletal: Denies arthralgias and Denies myalgias Integumentary/Breasts Skin/Breast: Denies rash Neurologic Neurologic: Denies behavioral changes and Denies headache(s) Psychiatric Psychiatric: Denies behavioral changes Endocrine Endocrine: Denies fatigue Hematologic/Lymphatic On Anticoagulants: No Allergic/Immunologic Allergic/Immunologic: Denies urticaria Patient History Medical History Back pain Cataracts, bilateral Deaf Depression HTN (hypertension) Hyperlipidemia Osteoarthritis Pneumonia Seasonal allergies Skin cancer of chest, excluding breast Surgical History History of colonoscopy Hx of elbow surgery (01/11/18) Hx of lumbar discectomy (~2006) Hx of tonsillectomy Social History household members: spouse Smoking Status: Current every day smoker alcohol intake: current Smoking Status: Current every day smoker alcohol intake frequency: a few times a month Substance Use Type: marijuana Exam Initial Vital Signs Initial Vital Signs: Vital Signs Temperature 97.7 F 07/20/20 14:49 Pulse Rate 74 07/20/20 14:49 Respiratory Rate 18 07/20/20 14:49 Blood Pressure 171/79 H 07/20/20 14:49 Pulse Oximetry 100 07/20/20 14:49 Const General: cooperative and comfortable Limitations: mental status not altered HENMT Head: normal to inspection and normocephalic Resp Effort & Inspection: normal respiratory effort Auscultation: clear to auscultation bilaterally Cardio Rate: regular rate Rhythm: regular rhythm GI Inspection: non-distended Palpation: soft and tender (Epigastric and right upper quadrant) Back/Spine/Pelvis Back: No CVA tenderness Skin Lesions: no lesions Rashes: no rashes Neuro General: patient alert and patient awake Cognition: normal cognition Speech: speech normal Extrem General: normal to inspection and capillary refill normal Psych Appearance: grossly normal and well kempt Course Orders Ordered: ED Orders 07/20/20 14:53 EKG-12 Lead Stat 07/20/20 14:55 Complete Blood Count AUTO DIFF Stat Comprehensive Metabolic Panel Stat Lipase Stat Partial Thromboplastin Time Stat Prothrombin Time INR Stat 07/20/20 16:00 US abdomen limited Stat 07/20/20 16:39 CT abdomen pelvis w con Stat Discontinued Medications Al Hydrox/Mg Hydrox/Simethicone 20 ml/ Lidocaine HCl 15 ml 0 ml PO NOW ONE Stop: 07/20/20 16:00 Last Admin: 07/20/20 16:33 Dose: 35 ml Documented by: JUSTINO Sodium Chloride (Normal Saline 0.9%) 1,000 mls @ 1,000 mls/hr IV BOLUS ONE Stop: 07/20/20 16:59 Last Infusion: 07/20/20 18:33 Dose: 0 mls/hr Documented by: Admin: 07/20/20 16:34 Dose: 1,000 mls/hr Documented by: JUSTINO Pantoprazole Sodium (Pantoprazole 40 Mg Vial) 40 mg IV NOW ONE Stop: 07/20/20 16:00 Last Admin: 07/20/20 16:34 Dose: 40 mg Documented by: JUSTINO Vital Signs Vital signs: Vital Signs - 8 hr 07/20/20 14:49 07/20/20 15:49 07/20/20 16:00 Temperature 97.7 F Pulse Rate 74 59 L 54 L Respiratory Rate 18 20 18 Blood Pressure 171/79 H Pulse Oximetry 100 98 96 07/20/20 16:01 07/20/20 16:30 07/20/20 16:39 Temperature Pulse Rate 56 L 52 L 57 L Respiratory Rate 20 21 20 Blood Pressure 150/72 H 190/85 H Pulse Oximetry 96 100 98 07/20/20 17:08 07/20/20 17:30 07/20/20 18:00 Temperature Pulse Rate 69 60 61 Respiratory Rate Blood Pressure Pulse Oximetry 99 99 07/20/20 18:39 Temperature Pulse Rate 60 Respiratory Rate 16 Blood Pressure 153/80 H Pulse Oximetry 96 Medical Decision Making Lab Data Lab results reviewed: Yes I reviewed the patient's lab results. Result diagrams: 07/20/20 14:55 07/20/20 14:55 Labs: Lab Results 07/20/20 07/20/20 07/20/20 Range/Units 14:55 14:55 14:55 WBC 4.4 L (4.5-11.0) X10^3/uL RBC 5.41 H (4.0-5.2) X10^6/uL Hgb 16.6 H (12.0-16.0) g/dL Hct 49.4 H (36-46) % MCV 91.3 (80-100) fL MCH 30.8 (26-34) PG MCHC 33.7 (30-36) % RDW 12.4 (11.6-14.8) % Plt Count 214 (150-400) X10^3/uL Neut % (Auto) 58.8 (50-75) % Lymph % (Auto) 26.7 (25-40) % [place] % (Auto) 11.9 (3-14) % Eos % (Auto) 1.5 L (2-4) % Baso % (Auto) 1.1 (0-2) % Neut # (Auto) 2600 (6976-5500) /uL Lymph # (Auto) 1200 (1292-9448) /uL [place] # (Auto) 500 (0-900) /uL Eos # (Auto) 100 (0-450) /uL Baso # (Auto) 0 (0-100) /uL PT 11.1 (10.1-12.7) SECONDS INR 1.0 (0.9-1.3) APTT 33 (26.4-36.2) SECONDS Sodium 137 (137-145) mmol/L Potassium 4.3 (3.4-5.1) mmol/L Chloride 100 (98-107) mmol/L Carbon Dioxide 32 (22-32) mmol/L BUN 17 (7-17) mg/dL Creatinine 0.73 (0.52-1.04) mg/dL Estimated GFR > 60.0 (>60) mL/min BUN/Creatinine Ratio 23.3 H (6-22) Glucose 100 (80-110) mg/dL Calcium 10.0 (8.4-10.2) mg/dL Total Bilirubin 0.4 (0.2-1.3) mg/dL AST 35 (14-36) IU/L ALT 26 (<35) IU/L Alkaline Phosphatase 85 (38-126) U/L Total Protein 7.9 (6.3-8.2) g/dL Albumin 4.7 (3.5-5.0) g/dL Globulin 3.2 (1.7-4.1) g/dL Albumin/Globulin Ratio 1.5 (1.0-2.8) Lipase 173 (23-300) U/L Urine Dip Bedside Urine Glucose Negative Bedside Urine Bilirubin - Negative Bedside Urine Ketone - Negative Urine Specific [place] 1.01 Bedside Urine Occult Blood - Negative Bedside Urine pH 7 Bedside Urine Protein - Negative Bedside Urine Urobilinogen - Negative Bedside Urine Nitrite - Negative Bedside Urine Leukocytes - Negative Esterase Point of care testing: Urine Dip Bedside Urine Glucose Negative Bedside Urine Bilirubin - Negative Bedside Urine Ketone - Negative Urine Specific [place] 1.01 Bedside Urine Occult Blood - Negative Bedside Urine pH 7 Bedside Urine Protein - Negative Bedside Urine Urobilinogen - Negative Bedside Urine Nitrite - Negative Bedside Urine Leukocytes - Negative Esterase Imaging Data US - abdomen: Radiologist's Impression: [address] [id number] ReportSigned Patient: Jerrica Burgess [facility]#: [id number]: [id number]:[id number]/Sex: 70 / FDate of Service: 07/20/20Loc: EDAccession Number: [id number] Procedure: US abdomen limited Ordering Provider: Piero Gambino D.O. PROCEDURE: US ABDOMEN LIMITED INDICATIONS: RIGHT UPPER QUADRANT PAIN TECHNIQUE: Real-time focused scanning was performed of the abdomen, with image documentation. COMPARISON: [facility], US ABDOMEN LIMITED, 12/24/2018, 5:51. FINDINGS: The liver is normal in size and echotexture. The main portal vein appears normal. The gallbladder appears free of gallstones, and there is is polyp at the gallbladder anterior wall that measures up to 5 x 6 x 7 mm. The gallbladder wall thickness is 2.7 mm. Quality of visualization is relatively limited due to contracted gallbladder and overlying bowel gas. The common bile duct measures 5.7 mm, normal. The pancreas visualized appears normal. IMPRESSION: Somewhat limited quality of valuation, but the liver appears normal and the gallbladder appears to contain a polyp measuring 5 x 6 x 7 mm. Elective follow-up gallbladder ultrasound is recommended in 6 months with proper preparation including fasting to allow better visualization. A polyp of this size should be evaluated with best possible visualization which was not achieved by this at on study with significant overlying bowel gas. Dictated by: Luiz Scott M.D. on 07/20/2020 at 17:03 Approved by: Luiz Scott M.D. on 07/20/2020 at 17:06 CT scan - abdomen/pelvis: Radiologist's Impression: [address] [id number] Scan ReportSigned Patient: Jerrica Burgess [facility]#: [id number]: [id number]:[id number]/Sex: 70 / FDate of Service: 07/20/20Loc: EDAccession Number: [id number] Procedure: CT abdomen pelvis w con Ordering Provider: Piero Gambino D.O. PROCEDURE: CT ABDOMEN PELVIS W CON INDICATIONS: Epigastric, right upper quadrant abdominal pain TECHNIQUE: After the administration of intravenous contrast, 5 mm thick sections acquired from the diaphragm to the symphysis. 5 mm coronal and sagittal reformats were acquired. For radiation dose reduction, the following was used: automated exposure control, adjustment of mA and/or kV according to patient size. COMPARISON: [facility], CT, CT ABDOMEN PELVIS W CON, 05/16/2020, 7:58. [facility], CT, CT ABDOMEN PELVIS W CON, 12/24/2018, 7:37. FINDINGS: Image quality: Excellent. ABDOMEN: Lung bases: Lung bases are clear. Heart size is normal. Solid organs: Liver is normal in size and enhancement. Gallbladder appears normal. Biliary system is non dilated. Pancreas enhances normally. Spleen is normal in size and enhancement. No adrenal nodules. Kidneys demonstrate normal size and enhancement, without hydronephrosis. Peritoneum and bowel: Bowel loops demonstrate normal wall thickness and caliber. No free fluid or air. Nodes and vessels: No retroperitoneal or mesenteric adenopathy by size criteria. Aorta and inferior vena cava are normal in size. Miscellaneous: No ventral hernias. PELVIS: Genitourinary: Bladder wall thickness is normal. Miscellaneous: No inguinal hernias or adenopathy. Bones: No suspicious bony lesions. No vertebral body compression fractures. IMPRESSION: Source of right-sided pain is not found. No evidence of biliary obstruction, urinary tract stone, or appendicitis is found. Dictated by: Luiz Scott M.D. on 07/20/2020 at 17:12 Approved by: Luiz Scott M.D. on 07/20/2020 at 17:13 ECG Data Attestation: I personally reviewed and interpreted this ECG as follows: Prior ECG tracings: not available for review Interpretation: Sinus bradycardia Ventricular rate of 59 Normal axis Normal QRS Normal QTC No ST T wave changes MDM Narrative Medical decision making narrative: Patient's labs are unremarkable to include no leukocytosis and normal LFTs and lipase. The right upper quadrant ultrasound today was limited because of the overlying bowel gas pattern. However there is no other secondary signs of acute cholecystitis. CT scan of the abdomen is also unremarkable. She has had a right upper quadrant ultrasound in the past which showed cholelithiasis. This was several months ago. No indication for antibiotics, no indication for surgical consultation today given her workup although I did tell her that follow-up with General surgery as an outpatient to discuss cholecystectomy may be warranted. Discussed starting her on a proton pump inhibitor again. Will hold on any opioid pain medications for now. She was given return precautions and follow-up instructions. She expressed understanding agreement. Discharge Plan Departure Patient Disposition: Home Clinical Impression: Abdominal pain Instructions: DI for Abdominal Pain-Adult Activity Restrictions/Additional Instructions: Recommend that you continue with the proton pump inhibitor like we discussed. I recommend you contact your primary provider for follow-up. You can also contact the [facility] at [phone] for follow-up as well. Return to the emergency department for any new symptoms Prescriptions: No Action acyclovir 400 MG tablet 400 mg PO BID Qty: 0 RF: 0 cholecalciferol (vitamin D3) [Vitamin D3] 2,000 UNIT capsule 2,000 unit PO QDAY Qty: 0 RF: 0 omega 7-iur-zwh-fish oil [Fish Oil] 1,000 MG capsule 1,000 mg PO BID Qty: 0 RF: 0 simvastatin 40 mg tablet 40 mg PO DAILY RF: 0 Acetaminophen Extra Strength 500 mg 1,000 mg PO BID PRN (Reason: Pain, Mild) RF: 0 aspirin 325 mg Tablet 325 mg PO DAILY RF: 0 fluconazole [Diflucan] 100 mg Tablet 200 mg PO DAILY Qty: 10 RF: 0 oxycodone 5 mg Tablet 5 mg PO Q4HR PRN (Reason: Pain, Moderate (4-6)) Qty: 10 RF: 0 pantoprazole 40 mg Tablet,Delayed Release (Dr/Ec) 40 mg PO 0700,2100 Qty: 60 RF: 10 amoxicillin-pot clavulanate 500-125 mg tablet 1 tab PO TID Qty: 15 RF: 0 acetaminophen 325 mg capsule 650 mg PO Q6H Qty: 30 RF: 0 ondansetron 4 mg tablet,disintegrating 4 mg PO Q8H PRN (Reason: nausea and vomiting) Qty: 10 RF: 0 amlodipine 2.5 mg Tablet 2.5 mg PO DAILY RF: 0 docusate sodium [DOK] 100 mg Capsule 100 mg PO BID Qty: 60 RF: 0 oxycodone 5 mg Capsule 1 - 2 tab PO Q4-6H PRN (Reason: Pain) Qty: 0 RF: 0 Referrals: Maurice Reyes MD [Primary Care Provider] -
[2020-07-20] MEDS: MAG HYDROX/ALUMINUM/SIMETH SUS 20 ML, LIDOCAINE VISCOUS 2% 15 ML PO (16:33)
[2020-07-20] MEDS: SODIUM CHLORIDE 0.9% 1,000 ML 1000 ML IV (16:34)
[2020-07-20] MEDS: PANTOPRAZOLE 40 MG VIAL IV (16:34)
--- NOTE | 2020-07-20 16:39 | DI.CT.S_ITS ---
PROCEDURE: CT ABDOMEN PELVIS W CON INDICATIONS: Epigastric, right upper quadrant abdominal pain TECHNIQUE: After the administration of intravenous contrast, 5 mm thick sections acquired from the diaphragm to the symphysis. 5 mm coronal and sagittal reformats were acquired. For radiation dose reduction, the following was used: automated exposure control, adjustment of mA and/or kV according to patient size. COMPARISON: [facility], CT, CT ABDOMEN PELVIS W CON, 05/16/2020, 7:58. [facility], CT, CT ABDOMEN PELVIS W CON, 12/24/2018, 7:37. FINDINGS: Image quality: Excellent. ABDOMEN: Lung bases: Lung bases are clear. Heart size is normal. Solid organs: Liver is normal in size and enhancement. Gallbladder appears normal. Biliary system is non dilated. Pancreas enhances normally. Spleen is normal in size and enhancement. No adrenal nodules. Kidneys demonstrate normal size and enhancement, without hydronephrosis. Peritoneum and bowel: Bowel loops demonstrate normal wall thickness and caliber. No free fluid or air. Nodes and vessels: No retroperitoneal or mesenteric adenopathy by size criteria. Aorta and inferior vena cava are normal in size. Miscellaneous: No ventral hernias. PELVIS: Genitourinary: Bladder wall thickness is normal. Miscellaneous: No inguinal hernias or adenopathy. Bones: No suspicious bony lesions. No vertebral body compression fractures. IMPRESSION: Source of right-sided pain is not found. No evidence of biliary obstruction, urinary tract stone, or appendicitis is found. Dictated by: Luiz Scott M.D. on 07/20/2020 at 17:12 Approved by: Luiz Scott M.D. on 07/20/2020 at 17:13
== END 2020-07-20 18:43 | disposition home or self-care (01) ==
PROVIDERS: Emergency Provider Emergency Medicine; Family Provider Orthopaedic Surgery; PCP Family Medicine
DX: R10.13 Epigastric pain (principal); R10.11 Right upper quadrant pain
CPT/HCPCS: 36415; 74177; 76705; 80053; 81003; 83690; 85025; 85610; 85730; 93005; 96361; 96374; 99284; C9113; Q9967

== ENCOUNTER → 2021-10-31 15:03 | Outpatient (CLI) | payer MEDICARE, OTHER, SELFPAY ==
[2018-12-29 12:44] VITALS: BMI 23.8
--- NOTE | 2021-10-31 | DI.MG.S_ITS ---
BILATERAL DIGITAL SCREENING MAMMOGRAM 3D/2D WITH CAD: 10/31/2021 CLINICAL: Routine screening. Comparison is made to exams dated: 04/13/2020 mammogram, 09/15/2018 mammogram - [facility], and 08/07/2016 mammogram - [facility]. The tissue of both breasts is extremely dense, which lowers the sensitivity of mammography. Current study was also evaluated with a Computer Aided Detection (CAD) system. No significant masses, calcifications, or other findings are seen in either breast. There has been no significant interval change. IMPRESSION: NEGATIVE There is no mammographic evidence of malignancy. A 1 year screening mammogram is recommended. This exam was interpreted at Station ID: [id number]. NOTE: For mammograms, a report in lay terms will be sent to the patient. Approximately 15% of breast malignancies will not be visualized mammographically. In the management of a palpable breast mass, a negative mammogram must not discourage biopsy of a clinically suspicious lesion. Electronically Signed By: Marizol newsome/jame:11/01/2021 09:05:32 letter sent: Normal Exam ACR BI-RADS Category 1: Negative [id number]
== END ==
PROVIDERS: Family Provider Orthopaedic Surgery; PCP Family Medicine; Referring Provider Family Medicine; Visit Provider Family Medicine
DX: Z12.31 Encounter for screening mammogram for malignant neoplasm of breast (principal)
CPT/HCPCS: 77063; 77067

== ENCOUNTER → 2023-01-14 | Outpatient (CLI) | payer MEDICARE, OTHER, SELFPAY ==
[2018-12-29 12:44] VITALS: BMI 23.8
--- NOTE | 2023-01-14 15:50 | DI.MG.S_ITS ---
BILATERAL DIGITAL SCREENING MAMMOGRAM 3D/2D WITH CAD: 01/14/2023 CLINICAL: Routine screening. Comparison is made to exams dated: 10/31/2021 mammogram, 04/13/2020 mammogram, and 09/15/2018 mammogram - [facility]. Both breasts are extremely dense, which lowers the sensitivity of mammography (category d />75% glandular tissue). Current study was also evaluated with a Computer Aided Detection (CAD) system. No significant masses, calcifications, or other findings are seen in either breast. There has been no significant interval change. IMPRESSION: NEGATIVE There is no mammographic evidence of malignancy. A 1 year screening mammogram is recommended. Based on the Tyrer Cuzick model (a risk assessment model) the patient's lifetime risk is 11.2% and her 10 year risk is 7.2%. According to the ACR, ACS, and NCCN guidelines, an annual breast MRI exam along with mammogram is recommended if the patient's lifetime risk is 20% or greater. This exam was interpreted at Station ID: [id number]. NOTE: For mammograms, a report in lay terms will be sent to the patient. Approximately 15% of breast malignancies will not be visualized mammographically. In the management of a palpable breast mass, a negative mammogram must not discourage biopsy of a clinically suspicious lesion. Electronically Signed By: Martinez grace/jame:01/25/2023 14:23:26 letter sent: Normal Exam ACR BI-RADS Category 1: Negative [id number]
== END ==
PROVIDERS: Family Provider Orthopaedic Surgery; PCP Family Medicine; Referring Provider Family Medicine; Visit Provider Family Medicine
DX: Z12.31 Encounter for screening mammogram for malignant neoplasm of breast (principal)
CPT/HCPCS: 77063; 77067

== ENCOUNTER 2023-03-27 12:45 | Emergency (ER) | payer MEDICARE, OTHER, SELFPAY ==
[2018-12-29 12:44] VITALS: BMI 23.8
[2023-03-27 12:47] VITALS: BP 137/78; PULSE 69; RESP 16; TEMP 36.8; O2SAT 97; BMI 20.8
--- NOTE | 2023-03-27 12:54 | DI.RAD.S_ITS ---
PROCEDURE: XR FINGER RT MIN 2V INDICATIONS: Fall and landed on thumb now swelling and pain with movement TECHNIQUE: AP hand, 2 views of the thumb acquired. COMPARISON: None. FINDINGS: Bones: Degenerative arthritis of the thumb involving the IP joint. Question fracture dorsal osteophyte off the distal aspect of the proximal phalanx of the thumb at the IP joint. Soft tissues: No suspicious soft tissue calcifications. 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 Suggest clinical correlation for presence or absence of focal point tenderness. Dictated by: Jacky Loving M.D. on 03/27/2023 at 13:27 Approved by: Jacky Loving M.D. on 03/27/2023 at 13:30
--- NOTE | 2023-03-27 12:56 | DI.CT.S_ITS ---
PROCEDURE: CT HEAD/BRAIN WO CON INDICATIONS: Fall and hit back of her head TECHNIQUE: Noncontrast 4.5 mm thick angled axial sections acquired from the foramen magnum to the vertex, with coronal and sagittal reformats. For radiation dose reduction, the following was used: automated exposure control, adjustment of mA and/or kV according to patient size. COMPARISON: [facility], CT, CT HEAD/BRAIN WO CON, 05/16/2020, 7:58. FINDINGS: Image quality: Excellent. CSF spaces: Basal cisterns are patent. No extra-axial fluid collections. The ventricles are symmetric in size and shape. Brain: No intracranial bleeds or masses. There is cerebral volume loss for age, with resultant ventricular and sulcal prominence. There are periventricular and deep white matter chronic small vessel ischemic changes. There is intracranial internal carotid artery atherosclerosis. Skull and face: Calvarium and visualized facial bones appear intact, without suspicious lesions. Sinuses: Visualized sinuses and mastoids are clear. IMPRESSION: No trauma found. Dictated by: Luiz Scott M.D. on 03/27/2023 at 13:15 Approved by: Luiz Scott M.D. on 03/27/2023 at 13:15
--- NOTE | 2023-03-27 14:04 | ED_ITS ---
HPI - Fall <Tran Blair PA-C - Last Filed: 03/27/23 17:23> General Chief Complaint: Fall Stated Complaint: poss broken thumb/tripped over dog Time Seen by Provider: 03/27/23 13:52 Source: patient Mode of arrival: Ambulatory History of Present Illness HPI Narrative: 72-year-old female, right-hand dominant, with history arthritis presents to ER for evaluation of right thumb injury. A few hours ago she tripped over her dog at home and fell backwards striking the back of her head on the wood floor, and injuring her thumb somehow though she isn't sure at all if she landed on it or hit it on something. She denies loss of consciousness. It is tender and swollen over the dorsal knuckle. No initial deformity but site has become swollen and tender over the hour. She takes ibuprofen and Tylenol daily for her hip arthritis. Related Data Home Medications Medication Instructions Recorded Confirmed acyclovir 400 mg tablet 400 mg PO BID ##0 06/30/17 01/13/19 cholecalciferol (vitamin D3) 50 2,000 unit PO QDAY ##0 06/30/17 01/13/19 mcg (2,000 unit) capsule (Vitamin D3) omega 5-bvh-arb-fish oil 1,000 mg 1,000 mg PO BID ##0 06/30/17 01/13/19 (120 mg-180 mg) capsule (Fish Oil) amlodipine 2.5 mg tablet 2.5 mg PO DAILY 11/02/18 01/13/19 Acetaminophen Extra Strength 1,000 mg PO BID PRN Pain, Mild 12/24/18 01/13/19 aspirin 325 mg tablet 325 mg PO DAILY 12/24/18 01/13/19 simvastatin 40 mg tablet 40 mg PO DAILY 12/24/18 01/13/19 Previous Rx's Medication Instructions Recorded docusate sodium 100 mg capsule 100 mg PO BID #60 caps 11/12/18 (DOK) oxycodone 5 mg capsule 1 - 2 tab PO Q4-6H PRN Pain #0 caps 11/12/18 acetaminophen 325 mg capsule 650 mg (2 x 325 mg) PO Q6H #30 caps 12/29/18 amoxicillin 500 mg-potassium 1 tab PO TID #15 tabs 12/29/18 clavulanate 125 mg tablet fluconazole 100 mg tablet 200 mg (2 x 100 mg) PO DAILY #10 12/29/18 (Diflucan) tabs oxycodone 5 mg tablet 5 mg PO Q4HR PRN Pain, Moderate 12/29/18 (4-6) #10 tabs pantoprazole 40 mg tablet,delayed 40 mg PO 0700,2100 #60 tabs 12/29/18 release ondansetron 4 mg disintegrating 4 mg PO Q8H PRN nausea and 05/16/20 tablet vomiting #10 tabs Allergies Allergy/AdvReac Type Severity Reaction Status Date / Time No Known Allergies Allergy Verified 03/27/23 12:53 Review of Systems <Tran Blair PA-C - Last Filed: 03/27/23 17:23> Review of Systems Narrative: GENERAL: Denies chills, fatigue, malaise, fever, sweats. HEENT: Some mild discomfort at the back of her head, no dizziness visual changes. RESPIRATORY: Denies dyspnea, cough, wheezing. CARDIOVASCULAR: Denies chest pain, palpitations, orthopnea, edema, GASTROINTESTINAL: Denies nausea, vomiting, abdominal pain. Right hand: Sore thumb with difficulty bending at the joint. SKIN: Denies rash, skin lesions NEUROLOGIC: Denies weakness, headache, numbness, change in speech, confusion, seizures, incoordination. PSYCHIATRIC: No concerning psychosocial issues. Patient History <Tran Blair PA-C - Last Filed: 03/27/23 17:23> Medical History Depression Skin cancer of chest, excluding breast Osteoarthritis Back pain HTN (hypertension) Seasonal allergies Pneumonia Cataracts, bilateral Deaf Hyperlipidemia Surgical History Hx of elbow surgery (01/11/18) Hx of lumbar discectomy (~2006) Hx of tonsillectomy History of colonoscopy Social History household members: spouse Smoking Status: Current every day smoker alcohol intake: current Smoking Status: Current every day smoker alcohol intake frequency: a few times a month Substance Use Type: marijuana Exam <Tran Blair PA-C - Last Filed: 03/27/23 17:23> Narrative Exam Narrative: Head is normocephalic, atraumatic, with some diffuse tenderness across the mid parietal area. No swelling. Right thumb with mild ecchymosis and swelling over the IP joint. Strength is intact against resistance with flexion and extension. Ligaments without laxity. Initial Vital Signs Initial Vital Signs: Vital Signs Temperature 98.2 F 03/27/23 12:47 Pulse Rate 69 03/27/23 12:47 Respiratory Rate 16 03/27/23 12:47 Blood Pressure 137/78 03/27/23 12:47 Pulse Oximetry 97 03/27/23 12:47 Oxygen Delivery Method Room Air 03/27/23 12:47 <Shilpi Hendricks MD - Last Filed: 03/27/23 17:28> Initial Vital Signs Initial Vital Signs: Vital Signs Temperature 98.2 F 03/27/23 12:47 Pulse Rate 69 03/27/23 12:47 Respiratory Rate 16 03/27/23 12:47 Blood Pressure 137/78 03/27/23 12:47 Pulse Oximetry 97 03/27/23 12:47 Oxygen Delivery Method Room Air 03/27/23 12:47 Course <Tran Blair PA-C - Last Filed: 03/27/23 17:23> Orders Ordered: ED Orders 03/27/23 12:54 XR finger RT min 2V Stat 03/27/23 12:56 CT head/brain wo con Stat Vital Signs Vital signs: Vital Signs - 8 hr 03/27/23 12:47 03/27/23 14:36 Temperature 98.2 F Pulse Rate 69 78 Respiratory Rate 16 20 Blood Pressure 137/78 136/73 Pulse Oximetry 97 100 Oxygen Delivery Method Room Air Room Air <Shilpi Hendricks MD - Last Filed: 03/27/23 17:28> Orders Ordered: ED Orders 03/27/23 12:54 XR finger RT min 2V Stat 03/27/23 12:56 CT head/brain wo con Stat Vital Signs Vital signs: Vital Signs - 8 hr 03/27/23 12:47 03/27/23 14:36 Temperature 98.2 F Pulse Rate 69 78 Respiratory Rate 16 20 Blood Pressure 137/78 136/73 Pulse Oximetry 97 100 Oxygen Delivery Method Room Air Room Air MDM - Fall <Tran Blair PA-C - Last Filed: 03/27/23 17:23> Imaging Data CT scan - head: Radiologist's Impression: PROCEDURE: CT HEAD/BRAIN WO CON INDICATIONS: Fall and hit back of her head TECHNIQUE: Noncontrast 4.5 mm thick angled axial sections acquired from the foramen magnum to the vertex, with coronal and sagittal reformats. For radiation dose reduction, the following was used: automated exposure control, adjustment of mA and/or kV according to patient size. COMPARISON: [facility], CT, CT HEAD/BRAIN WO CON, 05/16/2020, 7:58. FINDINGS: Image quality: Excellent. CSF spaces: Basal cisterns are patent. No extra-axial fluid collections. The ventricles are symmetric in size and shape. Brain: No intracranial bleeds or masses. There is cerebral volume loss for age, with resultant ventricular and sulcal prominence. There are periventricular and deep white matter chronic small vessel ischemic changes. There is intracranial internal carotid artery atherosclerosis. Skull and face: Calvarium and visualized facial bones appear intact, without suspicious lesions. Sinuses: Visualized sinuses and mastoids are clear. IMPRESSION: No trauma found. Extremity x-ray #1: Radiologist's Impression: PROCEDURE: XR FINGER RT MIN 2V INDICATIONS: Fall and landed on thumb now swelling and pain with movement TECHNIQUE: AP hand, 2 views of the thumb acquired. COMPARISON: None. FINDINGS: Bones: Degenerative arthritis of the thumb involving the IP joint. Question fracture dorsal osteophyte off the distal aspect of the proximal phalanx of the thumb at the IP joint. Soft tissues: No suspicious soft tissue calcifications. 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 Suggest clinical correlation for presence or absence of focal point tenderness. Dictated by: Jacky Loving M.D. on 03/27/2023 at 13:27 Approved by: Jacky Loving M.D. on 03/27/2023 at 13:30 [facility] Narrative Medical decision making narrative: MDM * differential diagnosis includes but not limited to occult fracture, ligamentous injury, muscle strain. * Prior records reviewed: * My lab interpretation: * My imgaing interpretation: There is degenerative arthritis at the IP joint with a question of a fractured dorsal osteophyte. There is no displacement. * Clinical Decision Rules/Scores evaluated: * Independent discussions with: ED Course: Shared Decision Making: Discuss the possibility of an occult fracture but without displacement standard of care is to immobilize the thumb with a likelihood that it will gradually heal on its own. Patient expresses agreement with the plan. Social Considerations: Disposition: Discharged to home. Discharge Plan Departure Patient Disposition: Home Clinical Impression: Strain of right thumb Contusion of head Qualifiers: Encounter type: initial encounter Instructions: DI for Finger Sprain Activity Restrictions/Additional Instructions: You have a right thumb strain. I suspected a ligamentous injury as the x-ray appears normal. You will feel more comfortable by wearing a thumb immobilizer splint for about a week or so. Continue with your regular ibuprofen/Tylenol regimen. Elevating the hand is a good idea so keeping it upright when you are sitting and rest your forearm on a pillow while sleeping. Wear the splint at night to avoid re- injuring the finger. After a few days gently work on flexing and extending the finger joint. See your primary care provider for follow-up as needed. It was a pleasure to take care of you today. Prescriptions: No Action acyclovir 400 MG tablet 400 mg PO BID Qty: 0 cholecalciferol (vitamin D3) [Vitamin D3] 2,000 UNIT capsule 2,000 unit PO QDAY Qty: 0 omega 3-nws-was-fish oil [Fish Oil] 1,000 MG capsule 1,000 mg PO BID Qty: 0 simvastatin 40 mg tablet 40 mg PO DAILY Acetaminophen Extra Strength 500 mg 1,000 mg PO BID PRN (Reason: Pain, Mild) aspirin 325 mg Tablet 325 mg PO DAILY fluconazole [Diflucan] 100 mg Tablet 200 mg PO DAILY Qty: 10 0RF oxycodone 5 mg Tablet 5 mg PO Q4HR PRN (Reason: Pain, Moderate (4-6)) Qty: 10 0RF pantoprazole 40 mg Tablet,Delayed Release (Dr/Ec) 40 mg PO 0700,2100 Qty: 60 10RF amoxicillin-pot clavulanate 500-125 mg tablet 1 tab PO TID Qty: 15 0RF acetaminophen 325 mg capsule 650 mg PO Q6H Qty: 30 0RF ondansetron 4 mg tablet,disintegrating 4 mg PO Q8H PRN (Reason: nausea and vomiting) Qty: 10 0RF amlodipine 2.5 mg Tablet 2.5 mg PO DAILY docusate sodium [DOK] 100 mg Capsule 100 mg PO BID Qty: 60 0RF oxycodone 5 mg Capsule 1 - 2 tab PO Q4-6H PRN (Reason: Pain) Qty: 0 0RF Referrals: Maurice Reyes MD [Primary Care Provider] - Stand Alone Forms: Patient Portal/API ED Sign-out <Shilpi Hendricks MD - Last Filed: 03/27/23 17:28> Cosign ED Attending Cosignature Attestation: I did not see this patient. I was available all times for consultation.
[2023-03-27 14:36] VITALS: BP 136/73; PULSE 78; RESP 20; O2SAT 100
== END 2023-03-27 14:40 | disposition home or self-care (01) ==
PROVIDERS: Emergency Provider Physician Assistant; Family Provider Orthopaedic Surgery; PCP Family Medicine
DX: S00.03XA Contusion of scalp, initial encounter (principal); S63.601A Unspecified sprain of right thumb, initial encounter; W01.0XXA Fall on same level from slipping, tripping and stumbling without subsequent striking against object, initial encounter
CPT/HCPCS: 70450; 73140; 99281; 99284

== ENCOUNTER → 2023-08-08 13:38 | Outpatient (CLI) | payer MEDICARE, OTHER, SELFPAY ==
[2018-12-29 12:44] VITALS: BMI 23.8
--- NOTE | 2023-08-08 13:40 | DI.MRI.S_ITS ---
PROCEDURE: MR BRAIN (IAC) WWO CON INDICATIONS: . TECHNIQUE: Noncontrast sagittal T1 spin echo, axial FLAIR, axial gradient echo, axial diffusion and ADC through the brain. Axial thin-slice 3D CISS, coronal TruFISP, axial T1 spin echo with fat saturation through the internal auditory canals. After the administration of contrast, thin slice axial and coronal T1 spin echo with fat saturation through the internal auditory canals, and axial and coronal and sagittal T1 spin echo with fat saturation through the brain. COMPARISON: [facility], CT, CT HEAD/BRAIN WO CON, 03/27/2023, 13:02. FINDINGS: Image quality: Excellent. Cerebellopontine angles: No cerebellopontine angle masses. Inner ear structures appear normally formed. No suspicious enhancement in the internal auditory canal or along the course of the 7th cranial nerve. CSF spaces: Ventricles are normal in size and shape. No extra-axial fluid collections. Basal cisterns are patent. Brain: No intracranial bleeds or mass effects. Prabhakar-white matter interface is intact. No abnormal intracranial enhancement. There is age-related global volume loss. There are chronic microvascular ischemic changes involving the periventricular white matter as well as the brainstem. Diffusion weighted images demonstrate no acute ischemic insults. Normal intravascular flow voids are present. Skull and face: Calvarial marrow signal is normal. Orbits appear normal. Sinuses: Small left maxillary sinus mucous retention cyst. Sinuses and mastoids are otherwise clear. IMPRESSION: 1. Normal appearance of the cerebellopontine angles without mass or abnormal enhancement. 2. No acute intracranial abnormalities. 3. Age-related global volume loss and chronic microvascular ischemic changes. Dictated by: Tacho Mixon M.D. on 08/10/2023 at 11:00 Approved by: Tacho Mixon M.D. on 08/10/2023 at 11:08
== END ==
PROVIDERS: Family Provider Orthopaedic Surgery; PCP Family Medicine; Referring Provider Otolaryngology; Visit Provider Otolaryngology
DX: H91.21 Sudden idiopathic hearing loss, right ear (principal); H90.3 Sensorineural hearing loss, bilateral
CPT/HCPCS: 70553; A9579

== ENCOUNTER → 2023-09-29 13:43 | Outpatient (CLI) | payer MEDICARE, OTHER, SELFPAY ==
[2018-12-29 12:44] VITALS: BMI 23.8
[2023-09-29 14:56] LABS: Bilirubin Urine UA NEGATIVE (NEGATIVE); Color Urine UA YELLOW; Glucose Urine UA NEGATIVE (Negative); Ketones Urine UA NEGATIVE (NEGATIVE); Leukocyte Esterase Urine UA TRACE (NEGATIVE); Nitrite Urine UA NEGATIVE (Negative); Occult Blood Urine UA NEGATIVE (Negative); Protein Urine UA TRACE (Negative); Specific Gravity Urine UA 1.025 (1.000-1.035)
[2023-09-29 14:58] LABS: Appearance Urine UA SL CLOUDY; pH Urine UA 5.5 (4.5-8.0)
[2023-09-29 15:04] LABS: Hemoglobin A1C% w Est Avg Glu 5.6 % (4.0-6.0)
[2023-09-29 15:06] LABS: Add Manual Diff / Slide Review NO; Bacteria Urine Many (>30); Basophils Absolute Auto 0 /uL (0-100); Basophils Percent Auto 0.7 % (0-2); Culture Indicated Urine Specimen Cultured; Eosinophils Absolute Auto 100 /uL (0-450); Eosinophils Percent Auto 2.4 % (2-4); Hematocrit 40.7 % (36-46); Lymphocytes Absolute Auto 1400 /uL (1100-4500); Lymphocytes Percent Auto 27.8 % (25-40); Mean Corpuscular HGB Conc 34.4 % (30-36); Mean Corpuscular Hemoglobin 32.2 PG (26-34); Mean Corpuscular Volume 93.6 fL (80-100); Monocytes Absolute Auto 400 /uL (0-900); Monocytes Percent Auto 8.3 % (3-14); Mucus Urine 2+ (Negative); Neutrophils Absolute Auto 3100 /uL (1500-7000); Neutrophils Percent Auto 60.8 % (50-75); Platelet Count 240 X10^3/uL (150-400); RBC Urine None Seen (0-5/HPF); Red Blood Cell Count 4.34 X10^6/uL (4.0-5.2); Red Cell Distribution Width 12.9 % (11.6-14.8); Squamous Epithelial Cell Urine 1-5 /HPF (0-5/HPF); Urine Volume 10mL (spun); WBC Urine 10-30/HPF (0-5/HPF); White Blood Cell Count 5.1 X10^3/uL (4.5-11.0)
[2023-09-29 15:26] LABS: BUN Creatinine Ratio 32.9 (6-22); Blood Urea Nitrogen 25 mg/dL (7-17); Calcium 9.4 mg/dL (8.4-10.2); Carbon Dioxide 29 mmol/L (22-32); Chloride 108 mmol/L (98-107); Estimated Glomerular Filt Rate > 60 mL/min (>60); Glucose 90 mg/dL (80-110); HEMOLYSIS < 15 (0-50); Potassium 4.4 mmol/L (3.4-5.1); Sodium 141 mmol/L (137-145)
== END ==
PROVIDERS: Family Provider Orthopaedic Surgery; PCP Family Medicine; Referring Provider Orthopaedic Surgery; Visit Provider Orthopaedic Surgery
DX: Z01.818 Encounter for other preprocedural examination (principal); Z01.812 Encounter for preprocedural laboratory examination; R73.9 Hyperglycemia, unspecified; N39.0 Urinary tract infection, site not specified
CPT/HCPCS: 36415; 80048; 81001; 83036; 85025; 87086; 93005; 93010

== ENCOUNTER 2023-10-13 11:32 | Day surgery (SDC) | payer MEDICARE, OTHER, SELFPAY ==
[2018-12-29 12:44] VITALS: BMI 23.8
[2023-10-07 13:34] VITALS: BMI 21.4
[2023-10-13] VITALS (9 sets, daily range): BP systolic 130–180; BP diastolic 57–91; PULSE 79–86; RESP 16–20; TEMP 36.6–36.8; O2SAT 97–100; BMI 21.4
--- NOTE | 2023-10-13 | DI.RAD.S_ITS ---
PROCEDURE: XR HIP W PEL IF DONE LT 2V INDICATIONS: LEFT IVANA TECHNIQUE: AP pelvis and lateral view of the hip acquired. COMPARISON: [facility], [place], XR HIP W PEL IF DONE RT 2V, 11/11/2018, 12:00. FINDINGS: Intraoperative images demonstrating new eft hip arthroplasty. There is good anatomic alignment. Prior right hip arthroplasty is also present. IMPRESSION: Intraoperative left hip arthroplasty placement. Dictated by: Ene Telles M.D. on 10/13/2023 at 17:44 Approved by: Ene Telles M.D. on 10/13/2023 at 17:44
--- NOTE | 2023-10-13 06:00 | DI.RAD.S_ITS ---
PROCEDURE: XR HIP W PEL IF DONE LT 2V INDICATIONS: left IVANA TECHNIQUE: AP pelvis and lateral view of the hip acquired. COMPARISON: [facility], [place], XR HIP W PEL IF DONE LT 2V, 10/13/2023, 15:41. FINDINGS: Bones: Patient is left hip arthroplasty, with hardware components in expected positions. The hip joint appears congruent. The visualized bony structures appear intact. Redemonstration of right hip total arthroplasty. Soft tissues: Overlying postoperative changes are noted. No suspicious soft tissue densities. IMPRESSION: Expected post-operative appearance of a hip arthroplasty. Approved by: Cris Bhandari M.D.,Ph.D. on 10/13/2023 at 16:36
[2023-10-13] MEDS: LACTATED RINGERS 1,000 ML 42 ML IV ×2 (12:46→15:30)
[2023-10-13] MEDS: CELECOXIB 200 MG CAPSULE PO (12:46)
[2023-10-13] MEDS: ACETAMINOPHEN 325 MG TABLET 975 MG PO (12:46)
[2023-10-13] MEDS: VANCOMYCIN 1,000 MG/200 ML PIGGYBACK 200 MG IV (13:14)
--- NOTE | 2023-10-13 14:20 | PM.PREOP ---
Pre-operative Note Interval Note History & Physical reviewed/Exam performed by Physician: Yes Changes to H&P: No
--- NOTE | 2023-10-13 14:21 | PM.OP.1 ---
Operative Date/Time/Diagnoses Date of procedure: 10/13/23 Time of procedure: 14:39 Pre-op diagnosis: Severe left hip OA Post-op diagnosis: same Procedure & Clinicians Procedure: Left total hip arthroplasty anterior approach Same procedure as scheduled: Yes Indications: The patient has had progressively worsening left hip pain with radiographic changes consistent with arthritis. Non-operative management has failed and the patient has requested total hip replacement. The risks, benefits and alternatives to surgery were discussed with the patient prior to proceeding. Risks discussed included, but were not limited to, failure to relieve pain, leg length discrepancy, dislocation, stiffness, infection, nerve damage, deep venous thrombosis, pulmonary embolism, stroke, coma, heart attack, permanent paralysis and , as well as the potential need for eventual revision of the prosthetic. Surgeon: Mireya Giles Predatory Animal Exterminator: Facundo Barnett Anesthesia Type: General and Spinal Operative Notes Findings: Severe left hip OA, adequate stability, soft bone Closure Type: primary Specimen(s): none sent Prosthetic devices, grafts, tissues, transplants, or devices: [employer] anthology standard offset size 6, 52 MM R3 cup, neutral poly liner, one 6.5 mm screw, 36+ 0 OXINIUM HEAD Estimated Blood Loss (mL): 250 Blood products transfused: none Procedure in detail: The patient was brought to the operating room. Patient was carefully positioned in the supine position. Time-out was performed and antibiotics were given. Anesthesia was induced. She was positioned in the on the table in order to allow hyperextension of the hip. The left lower extremity was prepped and draped in a standard sterile fashion. An anterior left hip incision was made 1 fingerbreadth lateral to the anterior superior iliac spine and extended distally towards the greater trochanter. Dissection was carried out through skin and subcutaneous tissues. Superficial hemostasis was achieved. The fascia over the tensor fascia rajni was defined and incised with a knife. Two Allis clamps were used to grasp the fascia. Tensor fascia rajni was retracted laterally. A gelpi retractor was placed. Dissection was carried out down along the neck. The circumflex vessels were carefully identified and cauterized with the Aqua Mantis. A PA was used during the procedure and was essential for intraoperative retraction and safe implantation of the components. There was good visualization of the femoral neck. A Cobra was placed superior to the neck and the gluteus fibers were carefully stripped from that superior aspect of the capsule. A 2nd retractor was placed along the inferior aspect of the neck. The rectus insertion along the capsule was partially released. A 3rd retractor that was then gently placed over the rim of the acetabulum under the rectus. Capsule was carefully incised and released from the intertrochanteric line circumferentially superior to the mid sagittal line and inferiorly to the mid sagittal line until the lesser trochanter was palpable. A tag stitch was placed both in the superior and inferior limb of the capsular insertion. Along the acetabulum capsule was also released up to the mid sagittal 12:00 position. A portion of the labrum was resected. A saw was used to perform an osteotomy at the level of the intertrochanteric line and the junction of the superior femoral neck leaving approximately 1 finger breath of residual inferior neck above the lesser trochanter. A 2nd cut was made along the femoral neck at the base of the head and a napkin ring of neck was removed. Corkscrew was placed in the femoral head and the head was removed without difficulty. Retractors were then repositioned around the acetabulum. Residual labrum was resected and additional osteophytes were removed. A reamer that was 4 mm below the templated size was placed by hand in the acetabulum and it was reamed to centralize the acetabulum. It was then reamed up to 2 under the templated size and fluoroscopy was brought in to confirm the position of the reaming and depth of reaming. I reamed 1 under the anticipated size. A trial cup was placed and noted that it was appropriately sized and fluoroscopy confirmed position and depth. The component was open and inserted without difficulty fluoroscopic imaging was used to confirm that the cup had been adequately seated and was well positioned. It was further stabilized with a single screw. Neutral poly liner was placed. The cup was tested and noted to be stable. Attention was then directed to the femur. The femur was gently hyperextended additional capsular release was performed as needed in order to allow adequate visualization of the proximal femur with elevation of the femur. Patient was placed in a hyperextended slightly adducted position with maximum external rotation. Box osteotome was used to check for any residual neck as well as sclerotic bone along the trochanter. [place] pepper was placed in the femur. Additional broaching was performed. Canal finder was used to determine the alignment of the canal and position. Size 1 broach was placed. The canal was then appropriately broached up to the templated size as long as there was adequate stability of the broach and serial advancement of the broach without excessive impingement. Specific attention was directed at avoiding varus attempting to direct the distal aspect of the broach more anteriorly and avoiding excessive anteversion. Trial reduction showed acceptable range of motion, good stability, no posterior impingement, mosque of leg length and appropriate lateral shuck. I also hyperflexed the hip and checked that there was no impingement anteriorly and there was good stability with flexion, adduction and internal rotation. Marcaine and Exparel were injected. The stem was placed without difficulty. Repeat trial reduction and x-ray showed acceptable overall position, length, and no evidence of the femoral fracture. Final head was placed. Wound was meticulously irrigated with normal saline. The hip was reduced and additional Exparel and Marcaine were injected. The capsule was closed with interrupted nonabsorbable sutures. The fascia of the tensor was closed with interrupted and running Vicryl. No drain was placed. Any tensor fascia rajni muscle that appeared to be contused or injured which was a minimal amount was carefully resected. Capsule around the tensor was injected with Exparel and Marcaine. The skin was closed with barbed stitches for the subcutaneous tissue and skin. We also used surgical glue. The wound was dressed sterilely. Brief Betadine soak was also used and was meticulously irrigated with normal saline. Patient was transferred to recovery room in satisfactory condition. Complications: none Post-operative Condition: stable Disposition: Acute Care Plan for aftercare: The patient will be maintained on a standard total hip replacement protocol with weight bearing as tolerated and anterior hip precautions. The patient will receive Aspirin and sequential compression devices for DVT prophylaxis. The patient will be discharged home when safe for the home environment.
[2023-10-13] MEDS: TRANEXAMIC ACID 1,000 MG VIAL 2000 MG INJ (14:45)
[2023-10-13] MEDS: CEFAZOLIN 2 GM/100 ML PREMIX 100 ML IV ×2 (14:45→23:18)
--- NOTE | 2023-10-13 15:00 | SUR.OPER ---
ROOM OPENED, SET-UP AND COUNTED BY ZION MOROCHO AND JULY HERNANDEZ
--- NOTE | 2023-10-13 15:13 | SUR.OPER ---
Supine on padded [employer] [facility] table with bilateral legs secured in padded positioning boots and suspended in positioning spars, operative leg in traction per surgeon. Head on one pillow. Arm on non-operative side secured on padded armboard <90 degrees abduction. Arm on operative side padded and resting across chest then secured with tape over sheet. Padded perineal post in place per surgeon.
[2023-10-13] MEDS: BUPIVACAINE 0.25% (PF) 60 ML, EPINEPHrine 0.3 MG INJ (15:18)
[2023-10-13] MEDS: BUPIVACAINE LIPOSOME 266 MG/20 ML VIAL INJ (15:18)
[2023-10-13] MEDS: OXYCODONE IR 5 MG TABLET PO ×4 (17:10→21:30)
[2023-10-13] MEDS: ONDANSETRON 4 MG/2 ML INJ IV (17:10)
[2023-10-13] MEDS: HYDROMORPHONE 1 MG INJ IV (17:20)
[2023-10-13] MEDS: KETOROLAC 30 MG/ML VIAL 15 MG IV (17:20)
[2023-10-13] MEDS: IBUPROFEN 400 MG TABLET PO ×2 (17:43→21:29)
[2023-10-13] MEDS: LACTATED RINGERS 1,000 ML 100 ML IV (17:44)
[2023-10-13] MEDS: ACETAMINOPHEN 325 MG TABLET 650 MG PO (18:36)
[2023-10-13] MEDS: ATORVASTATIN 20 MG TABLET PO (21:28)
[2023-10-13] MEDS: ASPIRIN EC 81 MG TABLET PO (21:28)
[2023-10-13] MEDS: DOCUSATE 100 MG CAPSULE PO (21:29)
[2023-10-14 00:07] VITALS: BP 133/101; PULSE 106; RESP 18; TEMP 36.8; O2SAT 96
[2023-10-14] MEDS: LACTATED RINGERS 1,000 ML 100 ML IV (01:10)
[2023-10-14 04:04] VITALS: BP 124/61; PULSE 87; RESP 16; TEMP 36.7; O2SAT 96
[2023-10-14 05:01] LABS: Hematocrit 33.2 % (36-46); Hemoglobin 11.6 g/dL (12.0-16.0)
[2023-10-14] MEDS: CEFAZOLIN 2 GM/100 ML PREMIX 100 ML IV (06:20)
--- NOTE | 2023-10-14 07:00 | PC.NURSE ---
Pt was having moderately severe pain at the beginning of the shift; Dr Fuentes notified and additional oxy 5mg po given; pt has been pain free except with movement for most of the shift; she is SBA w/ FWW
[2023-10-14 08:04] VITALS: BP 128/76; PULSE 87; RESP 18; TEMP 36.8; O2SAT 96
[2023-10-14] MEDS: hydroCHLOROthiazide 25 MG TABLET 12.5 MG PO (08:57)
[2023-10-14] MEDS: ASPIRIN EC 81 MG TABLET PO (08:58)
[2023-10-14] MEDS: CHOLECALCIFEROL (VITAMIN D3) 1,000 UNIT TABLET 2000 UNIT PO (08:58)
[2023-10-14] MEDS: CITALOPRAM 10 MG TABLET 20 MG PO (08:58)
[2023-10-14] MEDS: IBUPROFEN 400 MG TABLET PO (08:58)
[2023-10-14] MEDS: DOCUSATE 100 MG CAPSULE PO (08:59)
[2023-10-14 09:06] VITALS: BP 123/55; PULSE 75
--- NOTE | 2023-10-14 09:20 | OT.IP.EVAL ---
Current Diagnoses Unilateral primary osteoarthritis, left hip (10/13/23) Surgery Performed Operation Date: 10/13/23 14:15 Actual Procedures p Total Hip Arthroplasty/Anterior Approach(Left) - Mireya Giles MD Past Medical History (Last Reviewed 03/27/23 @ 16:10 by Tran Gregory PA-C) Back pain Cataracts, bilateral Deaf Depression HTN (hypertension) Hyperlipidemia Osteoarthritis Pneumonia Seasonal allergies Skin cancer of chest, excluding breast Surgical History (Last Updated 10/07/23 @ 13:34 by Arely Moreno RN) History of colonoscopy History of total right hip replacement (11/11/18) Hx of elbow surgery (01/11/18) Hx of lumbar discectomy (~2006) Hx of tonsillectomy Occupational Therapy Inpatient Evaluation/Re-Eval M1 PT/OT-IP Prior Functional Status Start: 10/14/23 09:22 Freq: NEEDED Status: Active Protocol: Document 10/14/23 09:22 [facility] (Rec: 10/14/23 09:40 [facility] [id number]) Medical Review Prior Functional Status Communication I Mobility and Gait I, but had pain. Activities of Daily Living and IADL's I, but had pain with ADL and IADl needs. Social History Household Members spouse Living Arrangements Mobile home Number of Floors (Floors) One Floor Number of Stairs To Enter/Railing? 1 step with bilateral narrow rails. Home Environment High Toilet,Built-In Shower Seat,Bidet Home Equipment Front Wheel Walker,Hand Held Shower,Ticker Maintainer,Grab Bars Near Toilet,Grab Bars In Shower Additional Social History Comment Pt has a walk in tub. M2 OT-IP Current Condition Start: 10/14/23 09:22 Freq: Status: Active Protocol: Document 10/14/23 09:22 [facility] (Rec: 10/14/23 09:40 [facility] [id number]) Occupational Therapy Current Condition Current Condition Evaluation Date 10/14/23 Treatment Diagnosis S/P L IVANA anterior approach Diagnosis Onset Date 10/13/23 Post Operative Precautions Anterior Hip Precautions No Hip Extension,No Hip External Rotation M3 OT- IP Subjective and Pain Start: 10/14/23 09:22 Freq: Status: Active Protocol: Document 10/14/23 09:22 [facility] (Rec: 10/14/23 09:40 [facility] [id number]) OT- Subjective Occupational Therapy Visit Type Type Initial Evaluation Visit Start Time 08:45 Visit Stop Time 09:25 Occupational Therapy Visit Comments Patient Comments Pt wanting to use the toilet. Pt's surgery was moved up and therefore has not been able to reschedule outpt PT yet. Patient/Caregiver Goals TO go home. OT Pain Assessment Pain When Pain Assessed At Rest Pain Present Pain Present Denied Pain M4 OT- IP ADL's Start: 10/14/23 09:22 Freq: Status: Active Protocol: Document 10/14/23 09:22 [facility] (Rec: 10/14/23 09:40 [facility] [id number]) OT [id number] General Evaluation Self-Feeding Ability Independent OT ADL-Grooming Comments OT Grooming Comments Not performed. OT ADL-Oral Care Comments Oral Care Comments Not performed. OT ADL-Dressing General Eval Upper Body Dressing Ability Maximum Assistance Areas Needing Assistance Socks Comments OT Dressing Comments Pt states does not use socks. Educated to calvin her LLE first and take out last. Also to be mindful of her LLE positioning during all ADL needs. OT ADL-Toileting General Evaluation Toileting Ability Standby Assistance OT ADL-Bathing Comments OT Bathing Comments Educated to pt to best cover the dressing for showering needs. M5 OT- IP IADL's Start: 10/14/23 09:22 Freq: Status: Active Protocol: Document 10/14/23 09:22 [facility] (Rec: 10/14/23 09:40 [facility] [id number]) OT-Instrumental Activities of Daily Living Home Safety Awareness Awareness of Need for Assistance at Home Good Awareness Ability to Problem Solve Emergency Able to Problem Solve Situations Home Safety Comments Pt states still feels a little groggy and that her will be able to assist with all her needs. Meal Preparation Meal Preparation Caregiver Provides Assist Cutter Grinder Cutter Grinder Caregiver Provides Assist M6 OT- IP Functional Cognition Start: 10/14/23 09:22 Freq: Status: Active Protocol: Document 10/14/23 09:22 [facility] (Rec: 10/14/23 09:40 [facility] [id number]) Cognitive Factors Limiting Selfcare Function Cognitive Ability Level of Alertness Alert,Drowsy Attention Span Ability Capable of Focused Attention, Capable of Sustained Attention Ability to Follow Commands Able to Follow One Step Commands with Increased Time, Able to Follow One Step Commands with Repetition Memory Description Short Term Impaired Cognitive Comments Cognitive Assessment Comments Pt is very hard of hearing. Pt needing reminders to recall and incorporate her anterior hip precautions for ADL and mobility needs. VC for safety awareness for the FWW and hand placement during transitions. OT- Vision and Hearing OT- Hearing Assessment OT- Hearing Assessment Hearing Impaired, deaf in left ear. OT- Vision Assessment Visual Acuity Glasses All The Time Visual Attentiveness WFL Occular Pursuits WFL M7 OT- IP Mobility and Balance Start: 10/14/23 09:22 Freq: Status: Active Protocol: Document 10/14/23 09:22 [facility] (Rec: 10/14/23 09:40 [facility] [id number]) OT- Bed Mobility Assessment Supine to Sit Supine to Sit Assist Contact Guard Assistance Sit to Supine Sit to Supine Assist Standby Assistance Scooting Scooting to Edge of Bed Standby Assistance Scooting Up and Down in Bed Standby Assistance OT-Transfer Assessment Sit to and From Stand Sit to and from Stand Contact Guard Assistance Transfers Transfer Ability Standby Assistance,Contact Guard Assistance Technique Transfer Destination Bed,Toilet Transfer Technique Stand Step Pivot Devices Transfer Assistive Devices Gait Belt,Front Wheeled Walker Comments Mobility Comments CGA to assist to get her LLE out of the bed and use of gait belt strap to assist to help get her leg back in. Pt states to get out on the right side of the bed at home. Once on her feet CGA to SBA for safety and vc to follow her anterior precautions. BP supine 123/74 and once back in bed 128/66. OT- Balance Assessment Sitting Balance and Reactions Static Sitting Balance Ability Normal Dynamic Sitting Balance Ability Good Standing Balance and Reactions Static Standing Balance Ability Good Dynamic Standing Balance Ability Fair M8 OT- IP Objective Assessments Start: 10/14/23 09:22 Freq: Status: Active Protocol: Document 10/14/23 09:22 [facility] (Rec: 10/14/23 09:40 [facility] [id number]) OT Gross Range of Motion Upper Extremity Range of Motion Assessment Within Functional Limits OT Strength Upper Extremity Strength Assessment Within Functional Limits M9 OT- IP Assessment and Plan Start: 10/14/23 09:22 Freq: Status: Active Protocol: Document 10/14/23 09:22 [facility] (Rec: 10/14/23 09:40 [facility] [id number]) OT Summary Assessment and Plan Potential Rehabilitation Potential Excellent Analytic Complexity at Evaluation Low Summary OT Impairments Balance,Functional Mobility, Dressing,Toileting,Bathing, Toilet Transfers,Shower Transfers Progress Towards Goals Progressing Toward Goals Assessment Summary Pt low complexity and main barriers are vc to recall and incorporate her anterior precautions. Pt has a supportive to be able to assist with her needs. Pt still needing to call for outpt PT appointment as her surgery was moved up 2 weeks. Pt to go home with assist. Goals Dressing Goal Independent,Ticker Maintainer Toileting Goal Independent Bathing Goal Standby Assistance,Grab Bars, Hand Held Shower Sprayer Toilet Transfer Goal Independent Shower Transfer Goal Standby Assistance Days to Meet Goals 3 Frequency of Treatment Frequency Of Treatment Once a Day Treatment Plan OT Treatment Plan ADL Training,Functional Mobility,Patient/Family Education,Discharge Planning Discharge Recommendations OT Discharge Recommendations Home with Assistance, Outpatient PT Transportation Needs at Discharge Private Vehicle
--- NOTE | 2023-10-14 09:51 | P.DS_ITS ---
History of Present Illness History of Present Illness Date Patient Seen: 10/14/23 Time Patient Seen: 09:51 Chief complaint: Hip pain Narrative: Hip pain is [id number]. No fever /chills. No nausea or vomiting. Discharge Providers Provider Discharge Date: 10/14/23 Primary care physician: Maurice Reyes MD Consults: 10/13/23 06:00 Consult to Anesthesiology Routine Comment: Consulting Provider: Anesthesiologist Reason for consultation: Regional block for post operative pain control 10/13/23 17:34 Consult to Discharge Planning Routine Comment: Consult to Occupational Therapy Evaluate & Treat Comment: Physician Instructions: Evaluate and treat Consult to Physical Therapy Evaluate & Treat Comment: Physician Instructions: post op IVANA protocol Discharge provider: Facundo Barnett PA-C Summary Hospital Course Discharge Diagnosis: Left total hip arthroplasty, anterior approach Hospital Course: Left total hip arthroplasty anterior approach Same procedure as scheduled: Yes Indications: The patient has had progressively worsening left hip pain with radiographic changes consistent with arthritis. Non-operative management has failed and the patient has requested total hip replacement. The risks, benefits and alternatives to surgery were discussed with the patient prior to proceeding. Risks discussed included, but were not limited to, failure to relieve pain, leg length discrepancy, dislocation, stiffness, infection, nerve damage, deep venous thrombosis, pulmonary embolism, stroke, coma, heart attack, permanent paralysis and , as well as the potential need for eventual revision of the prosthetic. Surgeon: Mireya Giles Electronic Security Technician: Facundo Barnett Anesthesia Type: General and Spinal Operative Notes Findings: Severe left hip OA, adequate stability, soft bone Closure Type: primary Specimen(s): none sent Prosthetic devices, grafts, tissues, transplants, or devices: [employer] anthology standard offset size 6, 52 MM R3 cup, neutral poly liner, one 6.5 mm screw, 36+ 0 OXINIUM HEAD Estimated Blood Loss (mL): 250 Blood products transfused: none Patient admitted to the hospital for left total hip arthroplasty. Patient consented to the same. Patient underwent left total hip arthroplasty anterior approach October 13, 2023. Patient back in her room recovering well as in stable condition. Anterior hip precautions. Weightbearing as tolerated. Multimodal pain management. Follow up outpatient Orthopedics in 2 weeks. Status at Discharge Cognitive/behavioral status at discharge: oriented Functional status at discharge: uses cane/walker Overall status at discharge: patient is progressing back to baseline Exam Vital Signs (past 8 hours): - 10/14/23 04:04 10/14/23 08:04 10/14/23 09:06 Temperature 98.0 F 98.2 F Pulse Rate 87 87 75 Respiratory Rate 16 18 Blood Pressure 124/61 128/76 123/55 L Pulse Oximetry 96 96 Oxygen Flow Rate 0 Oxygen Delivery Method Room Air Oxygen Flow Rate 0 Narrative Exam Narrative: Pleasant 73-year-old female sitting at bedside with occupational therapy. Patient he has in no acute distress. Dressing is clean, dry and intact. Neurovascular status is intact bilateral lower extremities. Const General: cooperative and comfortable Nutritional Appearance: average body habitus Orientation: alert Resp Effort & Inspection: normal respiratory effort and able to speak in complete sentences Objective Labs 10/14/23 04:25 Labs: Laboratory Results - last 24 hr 10/14/23 04:25 Hgb 11.6 L Hct 33.2 L PFSH Medical History (Updated 04/11/23 @ 00:00 by ) Depression Skin cancer of chest, excluding breast Osteoarthritis Back pain HTN (hypertension) Seasonal allergies Pneumonia Cataracts, bilateral Deaf Hyperlipidemia Surgical History (Updated 10/07/23 @ 13:34 by Arely Moreno RN) History of total right hip replacement (11/11/18) Hx of elbow surgery (01/11/18) Hx of lumbar discectomy (~2006) Hx of tonsillectomy History of colonoscopy Social History household members: spouse Smoking Status: Former smoker alcohol intake: current Discharge Assessment & Plan Assessment and Plan Assessment: Patient progressing as expected status post left total hip arthroplasty Plan of Treatment: Multimodal pain management Anterior hip precautions Weight-bearing as tolerated Follow up outpatient Orthopedics in 2 weeks Discharge home today after physical therapy if safe for home environment. Discharge Plan Discharge orders & Medications Discharge Orders: Discharge (Order); Ordered 10/14/23 Ordered By: Facundo Barnett Prescriptions: New acetaminophen 325 mg Tablet 650 mg PO Q6H PRN (Reason: Fever/Mild Pain (1-3)) Qty: 60 0RF aspirin 81 mg Tablet,Delayed Release (Dr/Ec) 81 mg PO BID Qty: 60 0RF ibuprofen 400 mg Tablet 400 mg PO Q4H PRN (Reason: Pain, Mild (1-3)) Qty: 60 0RF Continued cholecalciferol (vitamin D3) [Vitamin D3] 2,000 UNIT capsule 2,000 unit PO QDAY Qty: 0 simvastatin 40 mg tablet 40 mg PO DAILY citalopram 20 mg Tablet 20 mg PO DAILY losartan-hydrochlorothiazide 50-12.5 mg Tablet 1 tab PO DAILY Discontinued acetaminophen 325 mg capsule 650 mg PO Q6H PRN (Reason: Pain) ibuprofen 200 mg Tablet 400 mg PO BID Follow up/Referrals: Maurice Reyes MD [Primary Care Provider] - Mireya Giles MD [Family Provider] - 10/28/23 2:50 pm (Follow up w/ Facundo Barnett PA-C, at [facility] office in [place].) Diet/Activity/Treatments Diet: Diet as Tolerated Activity: Weightbearing as tolerated. Anterior hip precautions. Cold/Heat Therapy: Ice to hip as needed for pain. Skin/Wound/Dressing Care Report to your healthcare provider any signs of infection, such as:: chills, fever, night sweats, unusual drainage and unusual redness Dressing: May shower. Leave dressing in place until follow up in office. No bathing or otherwise soaking incision. Call the office if the dressing becomes saturated inside. Visit Report/Discharge Packet Instructions: DI for Hip Replacement, DI for Prescription Opioid Use Stand Alone Forms: Patient Portal/API, Surgery Discharge Discharge Data Primary Care Provider: Maurice Reyes Attending Provider: Mireya Giles
--- NOTE | 2023-10-14 10:00 | PT.IIE ---
Current Diagnoses Unilateral primary osteoarthritis, left hip (10/13/23) Surgery Performed Operation Date: 10/13/23 14:15 Actual Procedures p Total Hip Arthroplasty/Anterior Approach(Left) - Mireya Giles MD Surgical History (Last Updated 10/07/23 @ 13:34 by Arely Moreno, RN) History of colonoscopy History of total right hip replacement (11/11/18) Hx of elbow surgery (01/11/18) Hx of lumbar discectomy (~2006) Hx of tonsillectomy Medical History (Last Reviewed 03/27/23 @ 16:10 by Tran Gregory PA-C) Back pain Cataracts, bilateral Deaf Depression HTN (hypertension) Hyperlipidemia Osteoarthritis Pneumonia Seasonal allergies Skin cancer of chest, excluding breast Physical Therapy Inpatient Evaluation/Re-Eval M1 PT/OT-IP Prior Functional Status Start: 10/14/23 11:06 Freq: NEEDED Status: Active Protocol: Document 10/14/23 10:00 AB (Rec: 10/14/23 11:18 AB [id number]) Medical Review Prior Functional Status Medical History Reviewed Yes Communication able to make needs known Mobility and Gait pt stated that she was independent with all mobilities and ambulation without AD Social History Household Members spouse Living Arrangements House Number of Floors (Floors) One Floor Number of Stairs To Enter/Railing? 2 steps wide bilateral rails to enter the house Home Environment High Toilet,Built-In Shower Seat,Bidet Home Equipment Hand Held Shower,Detacher,Grab Bars Near Toilet,Grab Bars In Shower Additional Social History Comment Pt has a walk in tub, standard walker and an adjustable bed M2 PT-IP Current Condition Start: 10/14/23 11:06 Freq: NEEDED Status: Active Protocol: Document 10/14/23 10:00 AB (Rec: 10/14/23 11:18 AB [id number]) Physical Therapy Current Condition Current Condition Evaluation Date 10/14/23 Treatment Diagnosis s/p L IVANA anterior; difficulty in walking Onset Date 10/13/23 M3 PT-IP Subjective Start: 10/14/23 11:06 Freq: NEEDED Status: Active Protocol: Document 10/14/23 10:00 AB (Rec: 10/14/23 11:18 AB [id number]) Subjective Physical Therapy Visit Type Type Initial Evaluation Visit Start Time 10:00 Visit Stop Time 11:00 Number of ALUMINUM SIDING INSTALLER Visits 0 Physical Therapy Visit Comments Patient Comments agreeable to do PT Therapy Pain Assessment Pain When Pain Assessed During Mobility Pain Present Pain Present Pain Reported Location Left Hip Intensity 2 Scale Used Numeric (0 - 10) Pain Management Techniques Apply Cold,Distraction, Modification of Treatment,Re- positioning,Timing of Activity with Medications M4 PT-IP Mobility and Gait Start: 10/14/23 11:06 Freq: NEEDED Status: Active Protocol: Document 10/14/23 10:00 AB (Rec: 10/14/23 11:18 AB [id number]) PT-Bed Mobility Assessment Supine to Sit Supine to Sit Standby Assistance PT-Transfer Assessment Sit to and From Stand Sit to and from Stand Standby Assistance,1 Person Assistance,Use of Upper Extremities Equipment Transfer Assistive Device Gait Belt,Front Wheeled Walker ,Standard Walker Orthotic/Prosthetic Devices or Brace: No Transfers Transfer Destination Bed Transfer Technique ambulated Transfer Ability Level of Assist Standby Assistance,1 Person Assistance,Use of Upper Extremities Comments Mobility Comments pt supine in bed and agreeable to do PT. obtained PLOF and home set up from pt. educated pt regarding L hip anterior precautions. BP: 138/73 pt completed supine to sit SBA . able to sit on EOB SBA. completed sit to stand SBA with cues for techniques and safety. pt ambulated in room using FWW ~ 30 ft SBA. pt sat on the chair. educated pt with car transfers . agreed to do stairs. pt completed sit to stand from chair SBA. pt has a standard walker at home. ambulated in the hallway using standard walker SBA. stair climbing training. educated pt on how to do stairs. pt completed up/down steps holding on to L rail with B hands SBA to CGA and cues. assisted pt back to her room. ambulated from w/c to chair using FWW SBA. positioned pt on the chair. call light and table placed within reach. pt declined caregiver training with spouse and stated that she will be able to tell spouse on how to assist her if needed. Gait Assessment Gait Gait Assistance Required: Standby Assistance Distance (Feet) 100 Able to Maintain Weight Bearing Status Yes During Gait Assistive Devices Assistive Device Gait Belt,Front Wheeled Walker ,Standard Walker Orthotic/Prosthetic Devices or Brace: No Gait Deviations General Gait Pattern Narrow Based Gait Factors Limiting Gait Function Factors Limiting Gait Function Decreased Activity Tolerance, Decreased Strength,Limited Range of Motion,Pain,Poor Balance Stair Climbing Assessment Evaluation Level of Assist On Stairs Standby Assistance,Contact Guard Assistance Devices Stair Climbing Assistive Devices Left Railing Technique/Endurance Stair Climbing Direction Ascend and Descend Stair Climbing Technique Step to Step Number of Steps Climbed 3 Query Text: Stair Climbing Set # Repetitions (reps) 1 PT-Balance Assessment Sitting Balance and Reactions Static Sitting Balance Ability Normal Dynamic Sitting Balance Ability Good Standing Balance and Reactions Static Standing Balance Ability Good Dynamic Standing Balance Ability Fair Device Used FWW M5 PT-IP Objective Assessments Start: 10/14/23 11:06 Freq: NEEDED Status: Active Protocol: Document 10/14/23 10:00 AB (Rec: 10/14/23 11:18 AB [id number]) Orientation Orientation/Cognition Level of Alertness Alert Orientation Name,Place,Situation Language Function Ability No Deficits Noted Safety Awareness Decreased Safety Awareness Memory Description Short Term Impaired Gross Range of Motion Lower Extremity ROM Assessment Within Functional Limits Strength Lower Extremity Strength Assessment Left Impaired Hip 3-/5 Knee 4/5 Coordination Assessment Gross Coordination Gross Coordination WNL Sensation Assessment Sensation Gross Sensation WNL Muscle Tone Muscle Tone WNL Yes M6 PT-IP Treatment Start: 10/14/23 11:06 Freq: NEEDED Status: Active Protocol: Document 10/14/23 10:00 AB (Rec: 10/14/23 11:18 AB [id number]) Physical Therapy Treatment Education Education Provided Precautions,Weight Bearing Status,Safety M7 PT-IP Assessment and Plan Start: 10/14/23 11:06 Freq: NEEDED Status: Active Protocol: Document 10/14/23 10:00 AB (Rec: 10/14/23 11:18 AB [id number]) PT Summary Assessment and Plan Potential Rehabilitation Potential Fair Status of Condition at Evaluation Stable Summary Impairments Pain,ROM,Strength,Balance, Coordination,Sensation,Tone, Cognition,Bed Mobility, Transfers,Gait,Activity Tolerance Assessment Summary pt is a 73 y/o F s/p L IVANA anterior approach POD 1. pt has L hip anterior precautions and is WBAT. pt requiring SBA with mobility using a FWW/ standard walker and SBA to CGA for stair climbing. pt plans to go home with spouse to assist her. pt may go home when medically stable. Goals Bed Mobility Goal Independent Transfer Goal Independent,Front Wheeled Walker Gait Goal Independent,Front Wheel Walker Gait Distance 300 Other Goals up/down 2 steps L rail ascending mod I Days to Meet Goals 5 Frequency of Treatment Frequency Of Treatment Twice a Day Treatment Plan Physical Therapy Treatment Plan Bed Mobility Training,Transfer Training,Gait Training, Therapeutic Exercise,Balance Retraining,Post Op Education, Discharge Planning,Hot or Cold Pack,Neuromuscular Re-ed, Coordination Retraining,Manual Therapy Precautions Anterior Hip Precautions No Hip Extension,No Hip External Rotation Weight Bearing Status Weight Bearing Status Weight Bear as Tolerated Allowed Weight Bearing Amount (enter % LLE WBAT or #) (%) Recommendations To Nursing Amount of Assist Needed 1 Person Assist Discharge Recommendations PT Discharge Recommendations Home with Assistance, Outpatient PT Transportation Needs at Discharge Private Vehicle
[2023-10-14] MEDS: OXYCODONE IR 5 MG TABLET PO (10:05)
--- NOTE | 2023-10-14 11:14 | CM.DANOTE ---
Initial DCP Assessment Note Pt is a 73yo female, resident of [place], now POD#1 from left IVANA by Dr Giles. PCP: Maurice Reyes Payer: NORM/Afshin Reviewed chart, pt discussed in multidisciplinary rounds this morning. Therapy has cleared pt for return home w/spouse to assist and pt has planned for home, DC order from Ortho has already been initiated this morning. Patient receiving stair training this morning and is expected to discharge home w/spouse after. No barriers identified at this time to patient's safe discharge home w/spouse to assist; close outpatient f/u recommended. CM team will plan to follow clinical course closely in case any DC needs or concerns arise. CUATE Velazco Discharge Planning/Care Management CM Discharge Assessment Start: 10/14/23 11:12 Freq: Status: Active Protocol: Document 10/14/23 11:12 JEANNA (Rec: 10/14/23 11:14 JEANNA [id number]) Discharge Planning Assessment Assigned Medical Education Coordinator CUATE Saldivar DPOA/Assigned Designee Name Sedrick () Contact Information [phone] or [phone] Advance Directives? No: Declines further informaton, has paperwork at home Advance Directives on File No History Provided By Patient,Medical Record Prior Living Arrangements Mobile home Household Members spouse Type of transporation used prior to Drives own vehicle admit Independent with ADL's Yes: Poor activity tolerance r /t hip pain Is patient alert and oriented? Yes Needs Assistance With Home Chores / Shopping Patient/Family Preference OP PT Therapy Barriers to Discharge No Discharge Plan Home Transportation Arrangement Spouse Referrals Initiated None needed
== END 2023-10-14 14:05 | disposition home or self-care (01) ==
LOC: OR 11:34 → AC 16:46
PROVIDERS: Family Provider Orthopaedic Surgery; PCP Family Medicine; Referring Provider Orthopaedic Surgery; Visit Provider Orthopaedic Surgery
PROC: (CPT 27130; principal; 2023-10-13 14:15)
DX: M16.12 Unilateral primary osteoarthritis, left hip (principal); M25.752 Osteophyte, left hip
CPT/HCPCS: 27130; 36415; 73502; 76000; 85014; 85018; 97161; 97165; 97530; 97535; C1776; C9290; J0171; J0690; J1100; J1170; J1885; J2405; J2704

== ENCOUNTER → 2024-02-23 13:44 | Outpatient (CLI) | payer MEDICARE, OTHER, SELFPAY ==
[2023-10-13 17:34] VITALS: BMI 21.4
--- NOTE | 2024-02-23 13:45 | DI.MG.S_ITS ---
BILATERAL DIGITAL SCREENING MAMMOGRAM 3D/2D WITH CAD: 02/23/2024 CLINICAL: Routine screening. Comparison is made to exams dated: 01/14/2023 mammogram, 10/31/2021 mammogram, and 04/13/2020 mammogram - [facility]. The breasts are extremely dense, which lowers the sensitivity of mammography (category d />75% glandular tissue). Current study was also evaluated with a Computer Aided Detection (CAD) system. There are benign calcifications in the right breast. There also are stable benign calcifications in the left breast. No significant masses, calcifications, or other findings are seen in either breast. There has been no significant interval change. IMPRESSION: BENIGN There is no mammographic evidence of malignancy. A 1 year screening mammogram is recommended. Based on the Tyrer Cuzick model (a risk assessment model) the patient's lifetime risk is 10.6% and her 10 year risk is 7.3%. According to the ACR, ACS, and NCCN guidelines, an annual breast MRI exam along with mammogram is recommended if the patient's lifetime risk is 20% or greater. This exam was interpreted at Station ID: [id number]. NOTE: For mammograms, a report in lay terms will be sent to the patient. Approximately 15% of breast malignancies will not be visualized mammographically. In the management of a palpable breast mass, a negative mammogram must not discourage biopsy of a clinically suspicious lesion. Electronically Signed By: Marizol newsome/jame:02/23/2024 17:41:37 letter sent: Normal Exam ACR BI-RADS Category 2: Benign
== END ==
LOC: MAMMO 13:44
PROVIDERS: Family Provider Orthopaedic Surgery; PCP Family Medicine; Referring Provider Family Medicine; Visit Provider Family Medicine
DX: Z12.31 Encounter for screening mammogram for malignant neoplasm of breast (principal); R92.343 Mammographic extreme density, bilateral breasts
CPT/HCPCS: 77063; 77067

== ENCOUNTER 2024-08-06 14:00 | Emergency (ER) | payer MEDICARE, OTHER, SELFPAY ==
[2023-10-13 17:34] VITALS: BMI 21.4
[2024-08-06 14:24] VITALS: BP 123/74; PULSE 73; RESP 18; TEMP 36.8; O2SAT 95; BMI 20.9
--- NOTE | 2024-08-06 14:37 | DI.RAD.S_ITS ---
PROCEDURE: XR ELBOW LT MIN 3V INDICATIONS: fall pain TECHNIQUE: 4 views of the elbow were acquired. COMPARISON: [facility], CR, XR ELBOW LT MIN 3V, 11/24/2019, 14:15. [facility], CR, XR ELBOW LT MIN 3V, 01/11/2018, 10:53. FINDINGS: Diffuse osseous demineralization. 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 1.5 cm intra-articular body with a moderate joint effusion. Retained surgical pin at the level of the medial olecranon. IMPRESSION: 1. No acute fracture or dislocation. 2. 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 Dictated by: Yves Griffin M.D. on 08/06/2024 at 15:01 Approved by: Yves Griffin M.D. on 08/06/2024 at 15:03
--- NOTE | 2024-08-06 14:37 | DI.RAD.S_ITS ---
PROCEDURE: XR KNEE RT 3V INDICATIONS: fall pain TECHNIQUE: 3 views of the knee were acquired. COMPARISON: None. FINDINGS: Acute, comminuted patellar body fracture without significant distraction. Large hemarthrosis. No other acute fracture or dislocation. The medial and lateral joint compartments are preserved. IMPRESSION: Acute, comminuted patellar body fracture with large hemarthrosis. Dictated by: Yves Griffin M.D. on 08/06/2024 at 14:43 Approved by: Yves Griffin M.D. on 08/06/2024 at 15:01
--- NOTE | 2024-08-06 14:40 | ED.FALL ---
HPI - Fall <Faith Elizabeth PA-C - Last Filed: 08/06/24 19:53> General Chief Complaint: Fall Stated Complaint: Fall in ICU; bruise RT knee, LT elbow, face impact Time Seen by Provider: 08/06/24 14:36 Source: patient Mode of arrival: Wheelchair History of Present Illness HPI Narrative: Ms. Burgess is a very pleasant 74-year-old female with a past medical history of hypertension, hyperlipidemia, arthritis, bilateral hip replacements, left elbow fracture repair who presents to the emergency department for right knee pain and left elbow pain after a trip and fall that occurred upstairs in the ICU while visiting her . Patient states she was walking out of the ICU to go home when she tripped on her right foot causing her to fall forward landing on her right knee and an outstretched left arm. She hit her arm more on the elbow than on the hand. States that her glasses were knocked off of her face but she denies any facial pain, head trauma, headache, neck pain. There was no loss of consciousness, dizziness nausea or vomiting. She had to be assisted into a wheelchair and then came down to the emergency department. At this time she states her only pain is of her right knee and also slightly of the left elbow. She does have an old pin in her left elbow. She is not on any blood thinners. Related Data Home Medications Medication Instructions Recorded Confirmed cholecalciferol (vitamin D3) 50 2,000 unit PO QDAY ##0 06/30/17 10/13/23 mcg (2,000 unit) capsule (Vitamin D3) simvastatin 40 mg tablet 40 mg PO DAILY 12/24/18 10/13/23 citalopram 20 mg tablet 20 mg PO DAILY 10/07/23 10/13/23 losartan 50 mg-hydrochlorothiazide 1 tab PO DAILY 10/07/23 10/13/23 12.5 mg tablet amlodipine 5 mg tablet 5 mg PO DAILY 08/06/24 08/06/24 Previous Rx's Medication Instructions Recorded acetaminophen 325 mg tablet 650 mg (2 x 325 mg) PO Q6H PRN 10/14/23 Fever/Mild Pain (1-3) #60 tabs aspirin 81 mg tablet,delayed 81 mg PO BID #60 tabs 10/14/23 release ibuprofen 400 mg tablet 400 mg PO Q4H PRN Pain, Mild (1-3) 10/14/23 #60 tabs Allergies Allergy/AdvReac Type Severity Reaction Status Date / Time No Known Allergies Allergy Verified 08/06/24 14:24 Review of Systems <Fatih Elizabeth PA-C - Last Filed: 08/06/24 19:53> Review of Systems ROS Unobtainable: All systems reviewed & are unremarkable except as noted in HPI and below Patient History <Faith Elizabeth PA-C - Last Filed: 08/06/24 19:53> Medical History Depression Skin cancer of chest, excluding breast Osteoarthritis Back pain HTN (hypertension) Seasonal allergies Pneumonia Cataracts, bilateral Deaf Hyperlipidemia Surgical History History of total right hip replacement (11/11/18) Hx of elbow surgery (01/11/18) Hx of lumbar discectomy (~2006) Hx of tonsillectomy History of colonoscopy Social History household members: spouse Smoking Status: Current some day smoker alcohol intake: current Smoking Status: Current some day smoker alcohol intake frequency: a few times a month Exam <Faith Elizabeth PA-C - Last Filed: 08/06/24 19:53> Narrative Exam Narrative: GENERAL: 74 year old patient appears stated age. Well-developed patient, in no acute distress. HEAD: Atraumatic. Normocephalic. EYES: PERRL. Extraocular motions intact. No scleral icterus. No injection or drainage. ENT: Nose without bleeding, purulent drainage. No septal hematoma. Throat without erythema, tonsillar hypertrophy or exudate. Airway patent. NECK: Trachea midline. Cervical ROM intact. CARDIOVASCULAR: Regular rate and rhythm. RESPIRATORY: ?Nonlabored respirations. ?Speaking in clear, full sentences. ?Clear to auscultation. Breath sounds equal bilaterally. No wheezes, rales, or rhonchi. ? GASTROINTESTINAL: Abdomen soft, non-tender, nondistended. EXTREMITIES: Unable to actively extend right knee. Right knee swollen with anterior bruising and tenderness. Pain with full extension of right knee. No tenderness to palpation of medial or lateral knee. No tenderness to palpation of bilateral feet, ankles, shins, thighs, hips, left knee, bilateral wrists, right elbow bilateral shoulders. Mild pain with full extension of left elbow but no tenderness to palpation or deformities. She does have prior surgical scar here. Bounding left DP and PT pulses, palpable right PT pulse but difficult to palpate right DP pulse, it is detectable with doppler. She does have brisk capillary refill. BACK: Nontender without deformity or crepitance. No flank tenderness. NEURO: AOx3. ?Clear speech. ?No facial asymmetry. SKIN: Mild bruising right anterior knee. No lacerations. Initial Vital Signs Initial Vital Signs: Vital Signs Temperature 98.2 F 08/06/24 14:24 Pulse Rate 73 08/06/24 14:24 Respiratory Rate 18 08/06/24 14:24 Blood Pressure 123/74 08/06/24 14:24 Pulse Oximetry 95 08/06/24 14:24 Oxygen Delivery Method Room Air 08/06/24 14:24 <Jonnie Zamora MD - Last Filed: 08/06/24 20:47> Initial Vital Signs Initial Vital Signs: Vital Signs Temperature 98.2 F 08/06/24 14:24 Pulse Rate 73 08/06/24 14:24 Respiratory Rate 18 08/06/24 14:24 Blood Pressure 123/74 08/06/24 14:24 Pulse Oximetry 95 08/06/24 14:24 Oxygen Delivery Method Room Air 08/06/24 14:24 Course <Faith Elizabeth PA-C - Last Filed: 08/06/24 19:53> Orders Ordered: ED Orders 08/06/24 14:37 XR elbow LT min 3V Stat XR knee RT 3V Stat Discontinued Medications Amlodipine Besylate (Amlodipine 5 Mg Tablet) 5 mg PO NOW ONE Stop: 08/06/24 19:14 Last Admin: 08/06/24 19:21 Dose: 5 mg Documented By: RL Oxycodone HCl (Oxycodone Ir 5 Mg Tablet) 5 mg PO NOW ONE Stop: 08/06/24 16:04 Last Admin: 08/06/24 16:10 Dose: 5 mg Documented By: JERI Oxycodone/Acetaminophen (Oxycodone/Apap 5/325 Prepack) 1 bottle MISC DIRECTED ONE Stop: 08/06/24 18:01 Last Admin: 08/06/24 18:46 Dose: 1 bottle Documented By: BINH Vital Signs Vital signs: Vital Signs - 8 hr 08/06/24 14:24 08/06/24 19:08 Temperature 98.2 F 97.8 F Pulse Rate 73 74 Respiratory Rate 18 12 Blood Pressure 123/74 196/97 H Pulse Oximetry 95 100 Oxygen Delivery Method Room Air Room Air <Jonnie Zamora MD - Last Filed: 08/06/24 20:47> Orders Ordered: ED Orders 08/06/24 14:37 XR elbow LT min 3V Stat XR knee RT 3V Stat Discontinued Medications Amlodipine Besylate (Amlodipine 5 Mg Tablet) 5 mg PO NOW ONE Stop: 08/06/24 19:14 Last Admin: 08/06/24 19:21 Dose: 5 mg Documented By: RL Oxycodone HCl (Oxycodone Ir 5 Mg Tablet) 5 mg PO NOW ONE Stop: 08/06/24 16:04 Last Admin: 08/06/24 16:10 Dose: 5 mg Documented By: RL Oxycodone/Acetaminophen (Oxycodone/Apap 5/325 Prepack) 1 bottle MISC DIRECTED ONE Stop: 08/06/24 18:01 Last Admin: 08/06/24 18:46 Dose: 1 bottle Documented By: BINH Vital Signs Vital signs: Vital Signs - 8 hr 08/06/24 14:24 08/06/24 19:08 Temperature 98.2 F 97.8 F Pulse Rate 73 74 Respiratory Rate 18 12 Blood Pressure 123/74 196/97 H Pulse Oximetry 95 100 Oxygen Delivery Method Room Air Room Air MDM - Fall <Faith Elizabeth PA-C - Last Filed: 08/06/24 19:53> Medical Records Attestation: I reviewed the patient's medical records. MDM Narrative Medical decision making narrative: 74-year-old female with a past medical history of hypertension, hyperlipidemia, arthritis, bilateral hip replacements, left elbow fracture repair who presents to the emergency department for right knee pain and left elbow pain after a trip and fall that occurred upstairs in the ICU while visiting her . Differential diagnosis includes but isn't limited to mechanical fall causing a right knee fracture, left elbow fracture, sprain, strain, soft tissue injury, etc. On exam patient is in no acute distress, nontoxic appearing, vital signs appropriate. She is pain of the right knee with passive flexion and extension, unable to actively extend. Tenderness on the anterior aspect overlying the patella. Mild subjective pain of left elbow. Right knee and left elbow x-rays obtained in triage. We will treat pain with oxycodone. No headache, facial pain, neck pain or history of significant head trauma or LOC. X-ray reveals acute, comminuted patellar body fracture with large hemarthrosis. Will consult Orthopedics. Left elbow x-ray reveals no acute fracture or dislocation. Discussed case with on-call orthopedic surgeon Dr. Fuentes. States that this is a weight-bearing as tolerated fracture and patient should be placed into a right knee immobilizer and then follow up outpatient for surgery. Patient was placed into a right knee immobilizer and provided with walker. She was able to ambulate independently with a walker but with pain of right knee. She is going back upstairs to the ICU to spend time with her so she was given a prepack of oxycodone if needed for severe pain but also encouraged ibuprofen/Tylenol. She also was given her home dose of amlodipine as her blood pressure was elevated and she states that she has not taken her medication in the last 3 days due to being with her in the ICU. Discussed rice therapy, ED return precautions. Patient verbalized understanding of all information is agreeable with the plan. She is stable for discharge home. Discharge Plan Departure Patient Disposition: Home Clinical Impression: Left elbow pain Fall from slip, trip, or stumble Qualifiers: Encounter type: initial encounter Qualified Code(s): W01.0XXA - Fall on same level from slipping, tripping and stumbling without subsequent striking against object, initial encounter Closed fracture of right patella Qualifiers: Encounter type: initial encounter Fracture morphology: comminuted Fracture alignment: nondisplaced Qualified Code(s): S82.044A - Nondisplaced comminuted fracture of right patella, initial encounter for closed fracture Instructions: DI for Patella Fracture Activity Restrictions/Additional Instructions: Dear Ms. Burgess, Thank you for coming to the emergency department. I am sorry that you had a trip and fall today. X-rays reveal that you broke your right patella which is her kneecap. You need to continue wearing the right leg knee immobilizer for this fracture. You are able to walk on this leg/weight bear as tolerated. Please use a walker to assist yourself. Please call to schedule an appointment with [facility], for further evaluation. The on-call doctor today is Dr. Fuentes. Please use RICE therapy for your pain in addition to ibuprofen/acetaminophen. Rest the painful area. Ice the area of pain/swelling for at least 15 minutes, 4x a day. Compress the area of swelling using a brace, wrap, or splint if applied. Elevate the painful or swollen extremity by supporting it above the level of the heart with pillows when sitting or laying. You have been prescribed a short course of narcotic medications. These are potentially dangerous and addictive medications that should be used carefully. While on these medications you cannot drive or operate heavy machinery. Additionally, you cannot sign legal documents or perform any duties such as this. Many people get constipated on narcotic medications so it would be advisable to discuss stool softeners with the pharmacist when you bulk picker your prescription. Please understand that we cannot provide further refills of narcotics or controlled substances through the ED and your pain management will need to be through your Primary Care Provider Please follow up with your primary care doctor within the next 2-3 days for ER follow-up. (If you do not have a PCP you can call [phone]. ?to schedule an appointment with an [facility] Primary Care Provider) IF YOU DEVELOP ANY NEW OR WORSENING SYMPTOMS, RETURN TO THE ER! Please read the attached instructions, they highlight more specific treatments and interventions for you at home. Thank you for letting me participate in your care, Faith Elizabeth PA-C Prescriptions: No Action cholecalciferol (vitamin D3) [Vitamin D3] 2,000 UNIT capsule 2,000 unit PO QDAY Qty: 0 simvastatin 40 mg tablet 40 mg PO DAILY citalopram 20 mg Tablet 20 mg PO DAILY losartan-hydrochlorothiazide 50-12.5 mg Tablet 1 tab PO DAILY acetaminophen 325 mg Tablet 650 mg PO Q6H PRN (Reason: Fever/Mild Pain (1-3)) Qty: 60 0RF aspirin 81 mg Tablet,Delayed Release (Dr/Ec) 81 mg PO BID Qty: 60 0RF ibuprofen 400 mg Tablet 400 mg PO Q4H PRN (Reason: Pain, Mild (1-3)) Qty: 60 0RF amlodipine 5 mg tablet 5 mg PO DAILY Referrals: Maurice Reyes MD [Primary Care Provider] - Duy Fuentes MD [Physician] - (R patella comminuted fracture ) Stand Alone Forms: Patient Portal/API/Survey ED Sign-out <Jonnie Zamora MD - Last Filed: 08/06/24 20:47> Cosign ED Attending Cosignature Attestation: I was immediately available in the department for consultation. This documentation has been reviewed and I agree with assessment and plan. Supervised by Jonnie Zamora MD
[2024-08-06] MEDS: OXYCODONE IR 5 MG TABLET PO (16:10)
[2024-08-06] MEDS: OXYCODONE/APAP 5/325 PREPACK 1 BOTTLE MISC (18:46)
[2024-08-06 19:08] VITALS: BP 196/97; PULSE 74; RESP 12; TEMP 36.6; O2SAT 100
[2024-08-06] MEDS: AMLODIPINE 5 MG TABLET PO (19:21)
--- NOTE | 2024-08-06 19:21 | PC.NURSE ---
Patient has been staying in the hospital with her who is a patient. Has not been taking antihypertensives. Patient with elevated BP at discharge, provider made aware of patients status and medications. New orders placed. See MAR.
== END 2024-08-06 19:33 | disposition home or self-care (01) ==
PROVIDERS: Emergency Provider Physician Assistant; Family Provider Orthopaedic Surgery; PCP Family Medicine
DX: S82.044A Nondisplaced comminuted fracture of right patella, initial encounter for closed fracture (principal); M25.522 Pain in left elbow; I10 Essential (primary) hypertension; F17.210 Nicotine dependence, cigarettes, uncomplicated; W01.0XXA Fall on same level from slipping, tripping and stumbling without subsequent striking against object, initial encounter; Y92.239 Unspecified place in hospital as the place of occurrence of the external cause
CPT/HCPCS: 73080; 73562; 99283

== ENCOUNTER → 2024-08-30 15:11 | Outpatient (CLI) | payer MEDICARE, OTHER, SELFPAY ==
[2023-10-13 17:34] VITALS: BMI 21.4
--- NOTE | 2024-08-30 15:14 | DI.RAD.S_ITS ---
PROCEDURE: XR DEXA AXIAL SKELETON INDICATIONS: screening COMPARISON: None. FINDINGS: Lumbar Spine: Bone mineral density 0.903 g/cm2, T score -1.3. Left Forearm: Bone mineral density 0.505 g/cm2, T score -3.2. Fracture Risk Calculation (when applicable): Not calculated secondary to osteoporosis. (T score greater or equal to -1.0 to: NORMAL) (T score from -1.1 to -2.4: OSTEOPENIA) (T score less than or equal to -2.5: OSTEOPOROSIS) IMPRESSION: Osteoporosis by WHO classification. Follow-up guidelines as follows: Osteoporosis: Consider a repeat DEXA and Vertebral Fracture Assessment (VFA) exam in 2 years or sooner if medically necessary, to reassess this patient's status. Osteopenia: Consider a repeat DEXA in 2-3 years to reassess this patient's status, or if there is a new clinical indication. Normal: Consider a repeat DEXA in 5 years or sooner, or if there is a new clinical indication. All treatment decisions require clinical judgment and consideration of individual patient factors, including patient preferences, comorbidities, previous drug use, risk factors not captured in the FRAX model (e.g., frailty, falls, vitamin D deficiency, increased bone turnover, interval significant decline in bone density ) and possible under- or over-estimation of fracture risk by FRAX. In addition, the NOF Guide recommends that FDA-approved medical therapies be considered in postmenopausal women and men age >= 50 years with a: * Hip or vertebral (clinical or morphometric) fracture * T-score of <=-2.5 at the spine or hip * Ten-year fracture probability by FRAX of >= 3% for hip fracture or >=20% for major osteoporotic fracture. Dictated by: Tacho Mixon M.D. on 08/30/2024 at 18:45 Approved by: Tacho Mixon M.D. on 08/30/2024 at 18:45
[2024-08-30 17:20] LABS: Add Manual Diff / Slide Review NO; Basophils Absolute Auto 0 /uL (0-100); Basophils Percent Auto 0.7 % (0-2); Eosinophils Absolute Auto 100 /uL (0-450); Eosinophils Percent Auto 1.9 % (2-4); Hematocrit 39.7 % (36-46); Hemoglobin 13.7 g/dL (12.0-16.0); Lymphocytes Absolute Auto 1500 /uL (1100-4500); Lymphocytes Percent Auto 24.9 % (25-40); Mean Corpuscular HGB Conc 34.4 % (30-36); Mean Corpuscular Hemoglobin 31.5 PG (26-34); Mean Corpuscular Volume 91.6 fL (80-100); Monocytes Absolute Auto 500 /uL (0-900); Monocytes Percent Auto 7.6 % (3-14); Neutrophils Absolute Auto 4000 /uL (1500-7000); Neutrophils Percent Auto 64.9 % (50-75); Platelet Count 307 X10^3/uL (150-400); Red Blood Cell Count 4.34 X10^6/uL (4.0-5.2); Red Cell Distribution Width 13.2 % (11.6-14.8); White Blood Cell Count 6.2 X10^3/uL (4.5-11.0)
[2024-08-30 17:35] LABS: Alanine Aminotransferase 14 IU/L (<35); Albumin 4.4 g/dL (3.5-5.0); Albumin Globulin Ratio 1.5 (1.0-2.8); Alkaline Phosphatase 74 U/L (38-126); Aspartate Aminotransferase 24 IU/L (14-36); BUN Creatinine Ratio 20.8 (6-22); Bilirubin Total 0.7 mg/dL (0.2-1.3); Blood Urea Nitrogen 20 mg/dL (7-17); Calcium 9.7 mg/dL (8.4-10.2); Carbon Dioxide 28 mmol/L (22-32); Chloride 104 mmol/L (98-107); Estimated Glomerular Filt Rate > 60 mL/min (>60); Glucose 91 mg/dL (80-110); HEMOLYSIS < 15 (0-50); Potassium 4.3 mmol/L (3.4-5.1); Sodium 139 mmol/L (137-145); Total Protein 7.4 g/dL (6.3-8.2)
== END ==
PROVIDERS: Family Provider Orthopaedic Surgery; PCP Family Medicine; Referring Provider Orthopaedic Surgery; Visit Provider Orthopaedic Surgery
DX: M81.0 Age-related osteoporosis without current pathological fracture (principal); Z01.812 Encounter for preprocedural laboratory examination
CPT/HCPCS: 36415; 77080; 77081; 80053; 85025

== ENCOUNTER → 2025-05-17 10:56 | Outpatient (CLI) | payer MEDICARE, OTHER, SELFPAY ==
[2023-10-13 17:34] VITALS: BMI 21.4
--- NOTE | 2025-05-17 10:58 | DI.MRI.S_ITS ---
PROCEDURE: MR AB PANCREATIC/MRCP PROTOCOL INDICATIONS: Other specified diseases of pancreas, labs TECHNIQUE: Coronal HASTE through the abdomen, axial 2-D FLASH in- and [id number], and breath-hold T2 FSE with fat saturation through the biliary system and pancreas. Oblique coronal and axial thin-slice HASTE, radial thick-slab HASTE centered on the extrahepatic bile ducts. Intravenous secretin: Not requested. COMPARISON: None. FINDINGS: Image quality: Diagnostic. Gallbladder: No gallstones or wall thickening. A T1 mildly hyperintense nodule is present along the posterior wall the gallbladder, possibly a polyp measuring about 5 mm without significant enhancement. Biliary ducts: No biliary dilation. Pancreas: The pancreatic duct is smooth and nondilated. Classic ductal anatomy. Pancreatic contour and signal are normal. No suspicious enhancement or pancreatic mass. No peripancreatic edema or fluid. OTHER: Lung bases: Unremarkable. Liver: No solid mass. Spleen: Size is within normal limits. Adrenal Glands: No adrenal nodules. Kidneys and Ureters: No hydronephrosis. No solid mass. No complex renal cystic lesion which requires follow up. A simple left renal cyst. Nondilated ureters. Stomach and Bowel: Stomach and visible bowel loops are within normal limits. Peritoneum: No abnormal intraperitoneal fluid. No free air. Ventral Wall: No hernia. Abdominal Nodes: No retroperitoneal or mesenteric adenopathy by size criteria. Vessels: Aorta and inferior vena cava are normal in size. Bones: No aggressive osseous abnormality. IMPRESSION: No pancreatic abnormality. Etiology of amylase elevation not evident. Gallbladder polyp versus adherent cholesterol stone. No follow-up warranted for lesion of the small size. Dictated by: Marizol Godinez M.D. on 05/17/2025 at 14:15 Approved by: Marizol Godinez M.D. on 05/17/2025 at 14:48
== END ==
LOC: MRI 10:57
PROVIDERS: PCP Family Medicine; Referring Provider Family Medicine; Visit Provider Family Medicine
DX: K86.89 Other specified diseases of pancreas (principal)
CPT/HCPCS: 74183; A9579